=== PATIENT | male | born 1945 | race Caucasian/White ===

== ENCOUNTER 2017-11-28 18:30 | Inpatient (IN) | payer MEDICARE, OTHER ==
[~2017-11-28] VITALS: Ht 162.6 cm; Wt 64.4 kg
[2017-11-28] MEDS ORDERED: ASPI-1169 PO (18:38)
[2017-11-28] MEDS ORDERED: MAGN400O6 PO (18:38)
[2017-11-28] MEDS ORDERED: ATOR40TA PO (18:38)
[2017-11-28] MEDS ORDERED: METO25TA20 PO (18:38)
[2017-11-28] MEDS ORDERED: RISP0.253 PO (18:38)
[2017-11-28] MEDS ORDERED: SENN1TAB33 PO (18:38)
[2017-11-28] MEDS ORDERED: RAME8TAB15 PO (18:38)
--- NOTE | 2017-11-28 18:40 | NUR ---
AAOX3, BIB PA FROM [facility] FOR PSYCH EVAL. PATIENT IS BLIND. PATIENT WAS AGGRESSIVE PER EMS REPORT BUT HE HAS BEEN COOPERATIVE IN THE ER AT THE MOMENT. SKIN IS WARM AND DRY. RR IS EVEN AND UNLABORED WITH NAD NOTED. DR MATHIS AT FOR EVAL.
[2017-11-28 18:56] LABS: EOSINOPHILS # (AUTO) 0.1 /CMM (0.0-0.7)
--- NOTE | 2017-11-28 19:01 | NUR ---
REPORT GIVEN TO ARASELI MACK FOR KELLY.
--- NOTE | 2017-11-28 19:05 | NUR ---
RECEIVED REPORT FROM ARASELI DAN.
[2017-11-28 19:10] LABS: MONOCYTES % (AUTO) 7.2 % (2.0-12.0)
[2017-11-28 19:22] LABS: THYROID STIMULATING HORMONE 2.328 uIU/mL (0.358-3.74)
[2017-11-28 19:23] LABS: ALANINE AMINOTRANSFERASE 48 U/L (12-78); ALBUMIN 3.6 g/dL (3.4-5.0); ALCOHOL, BLOOD < 3 mg/dL (0-0); ALKALINE PHOSPHATASE 96 U/L (46-116); ASPARTATE AMINOTRANSFERASE 28 U/L (15-37); BILIRUBIN,DIRECT 0.1 mg/dL (0.0-0.2); BILIRUBIN,TOTAL 0.6 mg/dL (0.2-1.0); CARBON DIOXIDE 34 mmol/L (21-32); CHLORIDE 116 mmol/L (98-107); CREATININE 1.5 mg/dL (0.6-1.3); GLUCOSE 105 mg/dL (74-106); POTASSIUM 3.6 mmol/L (3.5-5.1); SODIUM SERUM 154 mmol/L (136-145); TOTAL PROTEIN, SERUM 7.6 g/dL (6.4-8.2); UREA NITROGEN, BLOOD 41 mg/dL (7-18)
[2017-11-28 19:25] LABS: BASOPHILS # (AUTO) 0.1 /CMM (0.0-0.2); BASOPHILS % (AUTO) 0.6 % (0.0-2.0); EOSINOPHILS % (AUTO) 0.8 % (0.0-6.0); HEMATOCRIT 51 % (39-51); HEMOGLOBIN 17.5 g/dL (13.5-17.5); LYMPHOCYTES # (AUTO) 1.3 /CMM (0.8-4.8); LYMPHOCYTES % (AUTO) 10.3 % (20.0-44.0); MEAN CORPUSCULAR HEMOGLOBIN 31 PG (26.0-33.0); MEAN CORPUSCULAR HGB CONC 35 g/dl (31.0-36.0); MEAN CORPUSCULAR VOLUME 89 fL (80-96); MONOCYTES # (AUTO) 0.9 /CMM (0.1-1.30); NEUTROPHILS # (AUTO) 10.7 /CMM (1.8-8.9); NEUTROPHILS % (AUTO) 81.1 % (43.0-81.0); PLATELET COUNT (AUTO) 332 /CMM (150-450); RDW COEFFICIENT OF VARIATION 12.3 (11.5-15.0); RED BLOOD CELL COUNT(AUTO) 5.74 MIL/uL (4.5-6.0); TROPONIN I < 0.017 ng/mL (0.00-0.056); WHITE BLOOD COUNT (AUTO) 13.1 K/uL (4.3-11.0)
[2017-11-28 19:27] LABS: APPEARANCE,URINE Clear (CLEAR); BILIRUBIN,URINE SMALL (NEGATIVE); BLOOD, URINE Negative Ery/uL (NEGATIVE); COLOR,URINE Yellow (YELLOW); KETONES,URINE Negative (NEGATIVE); LEUKOCYTE ESTERASE ,URINE Negative (NEGATIVE); NITRITE, URINE Negative (NEGATIVE); PH,URINE 5.5 (5.0-8.0); PROTEIN,URINE Trace mg/dl (NEGATIVE); UGLUCOSE Negative (NEGATIVE); UROBILINOGEN,URINE 0.2 EU/dL (0.2)
[2017-11-28 19:48] LABS: BACTERIA,URINE None seen /HPF (None Seen); RBC,URINE 0-2 /HPF (0-2); SQUAMOUS EPITHELIAL CELL,UR Few /HPF (None Seen); WBC,URINE 0-2 /HPF (0-3)
[2017-11-28] MEDS ORDERED: IV NS 0.9% 1,000 ML BAG IV ONE (20:00)
--- NOTE | 2017-11-28 20:45 | NUR ---
MADELINE AT BEDSIDE FOR EVAL.
--- NOTE | 2017-11-28 21:22 | NUR ---
PT PLACED ON 5150 HOLD PER MADELINE
--- NOTE | 2017-11-28 21:30 | NUR ---
REPORT GIVEN TO ARASELI MARQUEZ. IV removed. Catheter intact and site benign. Pressure and 4x4 applied to site. No bleeding noted.
--- NOTE | 2017-11-28 21:33 | NUR ---
PT [facility]ED TO [facility].
--- NOTE | 2017-11-28 21:50 | NUR ---
ADMISSION NOTES: ADMITTED THIS 72 Y/O MALE FROM [facility]. PT IS ON 5150 HOLD FOR GD. PSYCH DX OF PSYCHOSIS. MEDICAL DX OF HTN, DEMENTIA, HYPERLIPIDEMIA. PER HOLD PT IS HOMELESS AND BROUGHT IN BY THE POLICE. OVER THE LAST SEVERAL DAYS THE PT APPARENTLY BECAME VERY COMBATIVE, AGITATED AND MORE CONFUSED. PT WAS STRIKING OUT AT PEOPLE. PT UNABLE TO CARE FOR SELF. UPON FACE TO FACE. PATIENT IS A&OX1, CONFUSED, TOTALLY BLIND, AGITATED, UNCOOPERATIVE, AMBULATORY WITH ASSIST, RESPIRATION EVEN AND NON-LABORED, NO COMPLAIN OF PAIN/DISCOMFORT AT THIS TIME. V/S STABLE. BELONGINGS WERE INVENTORIED AND CHECKED FOR CONTRABAND. PUT BELONGINGS IN SAFE/LOCKED CABINET. PATIENT IS UNDER THE PSYCHIATRIC CARE OF DR. COSTA AND UNDER THE MEDICAL CARE OF DR. PEARSON. PT REFUSED SKIN/BODY ASSESSMENT. PATIENT'S BED LOCKED AND PLACED ON LOWEST POSITION. SIDERAILS UPX2. CALL CAMPBELL WITHIN REACH. WILL CONTINUE TO MONITOR Q 15 MINS. FOR SAFETY AND BEHAVIOR.
[2017-11-28 22:12] VITALS: BP 119/85
[2017-11-28] MEDS ORDERED: MAG HYDROX/AL HYDROX/SIMETH 30 ML UDC PO PRN (22:30)
[2017-11-28] MEDS ORDERED: LORAZEPAM 0.5 MG TABLET PO PRN (22:30)
[2017-11-28] MEDS ORDERED: MAGNESIUM HYDROXIDE 30 ML UDC PO PRN (22:30)
[2017-11-28] MEDS ORDERED: ZOLPIDEM TARTRATE 5 MG TABLET PO PRN (22:30)
[2017-11-28] MEDS ORDERED: ACETAMINOPHEN 325 MG TABLET PO PRN (22:30)
[2017-11-28 22:45] VITALS: BP 119/85
[2017-11-29] MEDS ORDERED: MAGNESIUM HYDROXIDE 30 ML UDC PO PRN (00:30)
[2017-11-29] MEDS ORDERED: SENNOSIDES/DOCUSATE SODIUM 1 TAB TABLET PO PRN (00:30)
[2017-11-29 06:34] LABS: BASOPHILS # (AUTO) 0.1 /CMM (0.0-0.2); BASOPHILS % (AUTO) 0.4 % (0.0-2.0); EOSINOPHILS # (AUTO) 0.1 /CMM (0.0-0.7); EOSINOPHILS % (AUTO) 0.4 % (0.0-6.0); HEMATOCRIT 49 % (39-51); HEMOGLOBIN 17.1 g/dL (13.5-17.5); LYMPHOCYTES # (AUTO) 1.4 /CMM (0.8-4.8); LYMPHOCYTES % (AUTO) 10.6 % (20.0-44.0); MEAN CORPUSCULAR HEMOGLOBIN 31 PG (26.0-33.0); MEAN CORPUSCULAR HGB CONC 35 g/dl (31.0-36.0); MEAN CORPUSCULAR VOLUME 89 fL (80-96); MONOCYTES % (AUTO) 7.4 % (2.0-12.0); NEUTROPHILS # (AUTO) 10.6 /CMM (1.8-8.9); NEUTROPHILS % (AUTO) 81.2 % (43.0-81.0); PLATELET COUNT (AUTO) 352 /CMM (150-450); RDW COEFFICIENT OF VARIATION 11.9 (11.5-15.0); RED BLOOD CELL COUNT(AUTO) 5.57 MIL/uL (4.5-6.0); WHITE BLOOD COUNT (AUTO) 13.2 K/uL (4.3-11.0)
[2017-11-29 06:51] LABS: ALBUMIN 3.5 g/dL (3.4-5.0); BILIRUBIN,TOTAL 0.6 mg/dL (0.2-1.0); CALCIUM, SERUM 9.8 mg/dL (8.5-10.1); CREATININE 1.6 mg/dL (0.6-1.3); POTASSIUM 3.5 mmol/L (3.5-5.1); TOTAL PROTEIN, SERUM 7.7 g/dL (6.4-8.2)
--- NOTE | 2017-11-29 07:15 | NUR ---
PAGED AND SPOKE TO STACY COPPOLA REGARDING SODIUM 158. SAID HE'S COMING LATER TO SEE THE PT. NO NEW ORDERS. WILL ENDORSE TO NEXT SHIFT NURSE FOR KELLY.
[2017-11-29 07:52] LABS: CHOLESTEROL 103 mg/dL (<200); HDL CHOLESTEROL 41 mg/dL (40-60); LDL 48 mg/dL (0-99); TRIGLYCERIDES 97 mg/dL (30-150)
[2017-11-29 08:25] VITALS: BP 132/58
--- NOTE | 2017-11-29 08:29 | NUR ---
[id number]: STACY PEARSON CAME TO ASSESS PT AND ENCOURAGE WATER INTAKE AND DRAW BLOOD AT NOON AND POSSIBLY TRANSFERRING PT TO MEDICAL SURGICAL FLOOR.
--- NOTE | 2017-11-29 08:35 | NUR ---
[id number]: NOTIFIED CARPET WEAVER LILI ABOUT LAB ON 11/29/17: WBC= 13.2, NEUT%= 81.2, LYMPH%= 10.6, NA= 158, CHLORIDE 117, BUN=40,, CREATININE=1.6.
[2017-11-29 08:41] VITALS: BP 132/58
[2017-11-29] MEDS ORDERED: ASPIRIN 81 MG TAB.CHEW PO SCH (09:00)
[2017-11-29] MEDS ORDERED: METOPROLOL TARTRATE 25 MG TABLET PO SCH (09:00)
[2017-11-29] MEDS ORDERED: IV D5W 1,000 ML IV PRN (10:30)
[2017-11-29 10:37] LABS: BAND % (MANUAL) 1 % (0.0-5.0); LYMPHOCYTES % (MANUAL) 10 % (16-48); MONOCYTES % (MANUAL) 6 % (0-11.0); NEUTROPHILS % (MANUAL) 83 (42-76)
[2017-11-29 12:18] LABS: CALCIUM, SERUM 9.7 mg/dL (8.5-10.1); CREATININE 1.7 mg/dL (0.6-1.3); POTASSIUM 4.4 mmol/L (3.5-5.1)
--- NOTE | 2017-11-29 15:15 | NUR ---
[id number]: PT IS DISCHARGING TO MEDICAL SURGICAL FLOOR DUE TO HYPERNATREMIA AND DEHYDRATION. PT IS A/O X1, CONFUSED, FORGETFUL. PT HAS NA= 155. DR. ULRICH ORDERED TO TRANSFER PT TO MEDICAL SURGICAL FLOOR. BELONGINGS SIGNED AND RETURNED. PT REQUIRES ASSISTANCE WITH AMBULATION, SELF-CARE, AND INCONTINENT. EDUCATED PT ON EXIT CARE. NOTIFIED DR. COSTA. GAVE REPORT TO VIKKI MARX
[2017-11-29] MEDS ORDERED: risperiDONE 0.25 MG TABLET PO SCH (17:00)
[2017-11-29] MEDS ORDERED: ACET-868 PO (17:16)
[2017-11-29] MEDS ORDERED: MAG30ORA PO (17:16)
[2017-11-29] MEDS ORDERED: RISP0.253 PO (17:16)
[2017-11-29] MEDS ORDERED: LORA1TAB PO (17:16)
[2017-11-29] MEDS ORDERED: ZOLP5TAB8 PO (17:16)
[2017-11-29] MEDS ORDERED: [UNRECOGNIZED DRUG - CODE] IV (17:16)
[2017-11-29] MEDS ORDERED: ATORVASTATIN 40 MG TABLET PO SCH (22:00)
== END 2017-11-29 15:21 | disposition short-term general hospital (02) | DRG 885 ==
LOC: ER 18:37 → GPS 21:17
PROVIDERS: ADMIT Psychiatry & Neurology Psychiatry; ATTEND Psychiatry & Neurology Psychiatry
DX: F29 Unspecified psychosis not due to a substance or known physiological condition (principal); N17.0 Acute kidney failure with tubular necrosis; E87.0 Hyperosmolality and hypernatremia; F03.91 Unspecified dementia, unspecified severity, with behavioral disturbance; E78.5 Hyperlipidemia, unspecified; Z86.73 Personal history of transient ischemic attack (TIA), and cerebral infarction without residual deficits; Z79.82 Long term (current) use of aspirin; Z79.899 Other long term (current) drug therapy; I10 Essential (primary) hypertension; E86.0 Dehydration; D72.829 Elevated white blood cell count, unspecified
CPT/HCPCS: 36415; 71045-TC; 80048-TC; 80053-TC; 80061-TC; 80076-TC; 80305; 81000-TC; 84443-TC; 84484-TC; 85025-TC; 87081-TC; A4606; G0480; J7070; Z7610

== ENCOUNTER 2017-11-29 16:50 | Inpatient (IN) | payer MEDICARE, OTHER ==
[~2017-11-29] VITALS: Ht 172.7 cm; Wt 64.9 kg
[2017-11-29 16:48] VITALS: BP 136/85
[~2017-11-29 16:50] MED LIST: ASPI-1169 PO; ATOR40TA PO; MAGN400O6 PO; METO25TA20 PO; RAME8TAB15 PO; RISP0.253 PO; SENN1TAB33 PO
--- NOTE | 2017-11-29 17:00 | NUR ---
ADMISSION NOTES PATIENT AD[facility]ITT[facility] FROM [facility] MALE 72Y/OLD ON Dx. OF DEHYDRATION, HYPERNATREMIA, ALSO PATIENT ON 5150 HOLD. PATIENT A/O X1, CONFUSED, IRRITABLE, BLIND , V/S TAKEN BP-136/85, P-100,R-20, O2-99 ROOM AIR, T-97.8, SKIN ASSESSMENT DONE, PICTURE TAKEN, NEEDS ATTENDED ANTICIPATED. MRSA OF SWAB NARES TAKEN CALLED LAB FOR FAST FOOD SUPERVISOR. 1:1 SITTER NEXT TO THE BED FOR SAFETY. PUT IV ACCESS ON RIGHT FOREARM GAUGE 22 INTACT.PATIENT INCONTINENT USING DIAPER. CALLED DR ULRICH FOR MEDICATION RECONCILIATION, CALL LIGHT WITHIN TO REACH, SAFETY PRECAUTION MAINTAINED ALL THE TIME.
[2017-11-29] MEDS ORDERED: MAG30ORA PO (17:16)
[2017-11-29] MEDS ORDERED: RISP0.253 PO (17:16)
[2017-11-29] MEDS ORDERED: [UNRECOGNIZED DRUG - CODE] IV (17:16)
[2017-11-29] MEDS ORDERED: ACET-868 PO (17:16)
[2017-11-29] MEDS ORDERED: LORA1TAB PO (17:16)
[2017-11-29] MEDS ORDERED: ZOLP5TAB8 PO (17:16)
--- NOTE | 2017-11-29 18:00 | NUR ---
RN NOTES PATIENT IN THE BED EATING ASSIST FEEDING BT EDITOR PUBLICATIONS. NO ACUTE DISTRESS, NO RESPIRATORY DISTRESS. 1:1 SITTER NEXT TO THE BED FOR SAFETY. ENDORSED ONCOMING NURSE FOR CONTINUATION OF CARE.
--- NOTE | 2017-11-29 19:30 | NUR ---
RN NOTES RECEIVED PATIENT IN BED AWAKE, AO X 1, VERBALLY RESPONSIVE. NO ACUTE DISTRESS NOTED. NO SIGNS OF PAIN NOTED. IV SITE PATENT, INTACT; FLUSHED. SAFETY REMINDERS GIVEN. ON LOW BED WITH BILATERAL UPPER SIDE RAILS UP. CALL CAMPBELL WITHIN EASY REACH. WILL CONTINUE TO MONITOR.
[2017-11-29 20:00] VITALS: BP 121/50
--- NOTE | 2017-11-29 22:17 | NUR ---
RN NOTES PATIENT VERY RESTLESS, AGITATED; TRYING TO GET OUT OF BED; VERY HIGH RISK FOR FALL; POOR SAFETY AWARENESS. NONPHARMACOLOGICAL INTERVENTIONS TO CALM PATIENT DOWN INEFFECTIVE. HECTOR PEARSON SOLIDWORKS MECHANICAL DESIGNER MADE AWARE WITH NEW ORDER FOR SEROQUEL 25 MG PO X 1, NOTED AND CARRIED OUT.
[2017-11-29] MEDS ORDERED: QUETIAPINE FUMARATE 25 MG TABLET ONE (22:24)
[2017-11-29] MEDS ORDERED: ATORVASTATIN 40 MG TABLET ONE (22:30)
[2017-11-29] MEDS ORDERED: QUETIAPINE FUMARATE 25 MG TABLET PO SCH (22:30)
[2017-11-29] MEDS ORDERED: QUETIAPINE FUMARATE 25 MG TABLET PO ONE (22:30)
[2017-11-29] MEDS: ATORVASTATIN 40 MG TABLET PO SCH (22:39)
[2017-11-29] MEDS: IV D5W 1,000 ML IV PRN (23:04)
--- NOTE | 2017-11-30 06:27 | NUR ---
RN NOTES PATIENT ASLEEP, EASILY AROUSABLE. RESPIRATIONS EVEN. NO SIGNS OF PAIN NOTED. DUE MEDS GIVEN WITH NO ASE NOTED. NEEDS ATTENDED. KEPT CLEAN AND DRY. SAFETY PRECAUTIONS AND COMFORT MEASURES IN PLACE. WILL GIVE REPORT TO DAY SHIFT FOR CONTINUITY OF CARE.
--- NOTE | 2017-11-30 07:40 | NUR ---
MS RN OPENING NOTES RECEIVED PATIENT IN STABLE CONDITION. IN NO APPARENT DISTRESS. BEDSIDE RAILS ARE UP X2 . BED IS LOCKED AND LOWERED. CALL LIGHT WITHIN REACH. WILL CONTINUE TO MONITOR.
[2017-11-30 08:00] VITALS: BP 136/87
[2017-11-30] MEDS: ASPIRIN 81 MG TAB.CHEW PO SCH (08:42)
[2017-11-30] MEDS: METOPROLOL TARTRATE 25 MG TABLET PO SCH ×2 (08:42→17:07)
[2017-11-30] MEDS: risperiDONE 0.25 MG TABLET PO SCH ×2 (08:42→17:07)
[2017-11-30] MEDS: IV D5W 1,000 ML IV PRN (14:06)
[2017-11-30] MEDS: LORAZEPAM INJ 2 MG/ML VIAL IV PRN ×2 (14:11→22:51)
[2017-11-30 16:00] VITALS: BP 133/66
--- NOTE | 2017-11-30 18:35 | NUR ---
MS RN CLOSING NOTES PATIENT IS ALERT AND RESTING IN BED. IN NO APPARENT DISTRESS. BEDSIDE RAILS ARE UP X2 . BED IS LOCKED AND LOWERED. CALL LIGHT IS WITHIN REACH. ALL NEEDS WERE MET. WILL ENDORSE CARE TO DRIVER'S LICENSE EXAMINER NURSE FOR KELLY.
--- NOTE | 2017-11-30 19:35 | NUR ---
MS RN OPENING NOTES RECEIVED PATIENT RESTING IN BED, A & O X 1, CONFUSED/FORGETFUL DUET O DEMENTIA. RESP EVEN & NON LABORED. NO S/S OF PAIN NOTED. INCONTINENT OF B & BM. ON BED REST. IV ACCESS TO RFA, INTACT PATENT, RUNNING WITH D5W @ 75 ML/HR. ON 5150 HOLD PER MD ORDERS. HAS HX OF EPISODES OF ANXIOUSNESS/RESTLESSNESS. ON 1:1 SITTER FOR SAFETY. SAFETY MEASURES IN PLACE. BED ALARM ON & IN LOW LOCKED POSITION. CALL LIGHT WITHIN REACH. WILL CONTINUE TO MONITOR.
[2017-11-30 20:00] VITALS: BP 123/61
[2017-11-30] MEDS: ATORVASTATIN 40 MG TABLET PO SCH (21:25)
--- NOTE | 2017-11-30 22:45 | NUR ---
PT PULLED HIS IV CATH PATIENT NOTED TO BE ANXIOUS, PULLED HIS IV LINE, REINSERTED NEW IV LINE TO LEFT HAND WITH GOOD BLOOD FLOW. NO S/S OF INFILTRATION NOTED. PROCEDURE TOLERATED WELL. ON 1:1 SITTER FOR SAFETY.
--- NOTE | 2017-11-30 22:51 | NUR ---
PRN ATIVAN GIVEN PATIENT NOTED TO BE VERY ANXIOUS, PULLED IV LINE, TRYING TO GET OUT OF BED, PRN ATIVAN GIVEN ORDERED. ON 1:1 SITTER FOR SAFETY. SAFETY MEASURES IN P-LACE. WILL REASSESS.
--- NOTE | 2017-11-30 22:55 | NUR ---
MS RN NOTES PATIENT NOTED TO BE RESTLESS/ANXIOUS. PRN ATIVAN GIVEN A WHILE AGO. PATIENT IS KEEP TRYING TO PULL OUT THE NEW IV CATH WELL. DISCONNECTED THE IVF LINE @ THIS TIME, WILL RECONNECT WHEN PT IS RELAXED FOR SAFETY REASONS. ON 1:1 SITTER.
--- NOTE | 2017-12-01 02:10 | NUR ---
MS RN NOTES PATIENT NOTED TO BE SLEEPING @ THIS TIME, CONNECTED BACK TO IVF. CONTINUING TO MONITOR.
[2017-12-01] MEDS: IV D5W 1,000 ML IV PRN ×2 (05:57→20:09)
--- NOTE | 2017-12-01 06:31 | NUR ---
MS RN CLOSING NOTES PATIENT SLEPT INTERMITTENTLY @ NIGHT, A & O X 1, CONFUSED/FORGETFUL DUE TO DEMENTIA. RESP EVEN & NON LABORED. NO S/S OF PAIN NOTED. RESISTANT TO CARE @ TIMES. INCONTINENT OF B & BM. ON BED REST. IV ACCESS TO LEFT HAND, INTACT PATENT, RUNNING WITH D5W @ 75 ML/HR. ON 5150 HOLD PER MD ORDERS. HAS HX OF EPISODES OF ANXIOUSNESS/RESTLESSNESS. ON 1:1 SITTER FOR SAFETY. SAFETY MEASURES IN PLACE. BED ALARM ON & IN LOW LOCKED POSITION. CALL LIGHT WITHIN REACH. WILL ENDORSE TO AM RN FOR CONTINUITY OF CARE.
[2017-12-01 07:17] LABS: BASOPHILS % (AUTO) 0.3 % (0.0-2.0); EOSINOPHILS # (AUTO) 0.2 /CMM (0.0-0.7); EOSINOPHILS % (AUTO) 1.9 % (0.0-6.0); HEMATOCRIT 40 % (39-51); HEMOGLOBIN 13.7 g/dL (13.5-17.5); LYMPHOCYTES # (AUTO) 1.4 /CMM (0.8-4.8); LYMPHOCYTES % (AUTO) 15.2 % (20.0-44.0); MEAN CORPUSCULAR HEMOGLOBIN 30 PG (26.0-33.0); MEAN CORPUSCULAR HGB CONC 34 g/dl (31.0-36.0); MEAN CORPUSCULAR VOLUME 89 fL (80-96); MONOCYTES # (AUTO) 0.6 /CMM (0.1-1.30); NEUTROPHILS # (AUTO) 6.9 /CMM (1.8-8.9); NEUTROPHILS % (AUTO) 75.6 % (43.0-81.0); PLATELET COUNT (AUTO) 253 /CMM (150-450); RDW COEFFICIENT OF VARIATION 12.7 (11.5-15.0); RED BLOOD CELL COUNT(AUTO) 4.52 MIL/uL (4.5-6.0); WHITE BLOOD COUNT (AUTO) 9.1 K/uL (4.3-11.0)
[2017-12-01 07:41] LABS: CALCIUM, SERUM 8.5 mg/dL (8.5-10.1); POTASSIUM 3.2 mmol/L (3.5-5.1)
[2017-12-01 07:59] LABS: OSMOLALITY,SERUM 309 mOS/kg (278-305)
[2017-12-01 08:00] VITALS: BP 138/69
--- NOTE | 2017-12-01 08:00 | NUR ---
m/s gem stone cutter: initial assessment received pt in bed awake, alert to self only. confused and disoriented. reality orientation provided prn. sitter remains at bedside. kept comfortable. will continue to monitor.
[2017-12-01 08:15] LABS: URINE SODIUM, RANDOM 71 mmol/l (40-220)
[2017-12-01] MEDS: risperiDONE 0.25 MG TABLET PO SCH ×2 (09:30→17:07)
[2017-12-01] MEDS: ASPIRIN 81 MG TAB.CHEW PO SCH (09:30)
[2017-12-01] MEDS: FAMOTIDINE (20 MG) 20 MG TABLET PO SCH (09:30)
[2017-12-01] MEDS: METOPROLOL TARTRATE 25 MG TABLET PO SCH ×2 (09:31→17:07)
--- NOTE | 2017-12-01 10:59 | NUR ---
juanito/claudia optometric aide: pscyh f/u placed pt on a [address] swain at this time. copy provided. Addendum: 12/01/17 at [address] swain in room with pt at this time.
[2017-12-01] MEDS: LORAZEPAM INJ 2 MG/ML VIAL IV PRN ×2 (11:39→23:08)
[2017-12-01] MEDS: POTASSIUM CHLORIDE 20 MEQ TAB.PRT.SR PO SCH ×2 (11:44→12:51)
--- NOTE | 2017-12-01 14:00 | NUR ---
m/s stone sawyer: notes resting comfortable in bed with no distress noted. sitter remains at bedside. will continue to monitor.
[2017-12-01 16:00] VITALS: BP 137/73
[2017-12-01 16:30] VITALS: BP 137/73
[2017-12-01 17:01] VITALS: BP 138/69
--- NOTE | 2017-12-01 18:30 | NUR ---
m/s spice blender: notes in bed awake, remains confused and disoriented. reality orientation provided prn. sitter remains at bedside. continue on ivf, infusing well. no distress noted. will continue to monitor.
--- NOTE | 2017-12-01 20:00 | NUR ---
MS RN OPENING NOTES: RECEIVED PATIENT IN BED, AWAKE, MOVING IN BED WITH 1:1 SITTER IN CLOSE PROXIMITY FOR SAFETY. PATIENT HAS AN IVF ON THE LEFT ARM ON GOING. NO SIGNS OF REDNESS, PHLEBITIS, OR INFECTION. PATIENT APPEARS CONFUSED AND DISORGANIZED. REALITY ORIENTATION DONE. WILL ADMINISTER ORDERED MEDICATIONS. SAFETY AND FALL PRECAUTIONS OBSERVED.
[2017-12-01] MEDS: ATORVASTATIN 40 MG TABLET PO SCH (22:36)
--- NOTE | 2017-12-02 00:40 | NUR ---
MS RN CLOSING NOTES: PATIENT IN BED, ASLEEP, WITH 1:1 SITTER. ENDORSED TO ARASELI PEREZ. FOR CONTINUITY OF CARE.
--- NOTE | 2017-12-02 01:00 | NUR ---
RN NOTES RECEIVED REPORT FROM ARASELI FIGUEROA. PATIENT IS IN BED, AWAKE, MOVING IN BED. SITTER PRESENT AT BEDSIDE. NO SOB NOTED. RESPIRATIONS EVEN AND UNLABORED. IV ACCESS ON LEFT HAND PATENT AND INTACT, NO REDNESS OR INFILTRATION NOTED. PATIENT IS DISORIENTED AND CONFUSED. BED IN LOW AND LOCKED POSITION, SIDE RAILSX3. CALL LIGHT WITHIN EASY REACH. WILL CONTINUE TO MONITOR AND ASSESS DURING THE SHIFT.
--- NOTE | 2017-12-02 07:45 | NUR ---
RN NOTES PATIENT IS IN BED, AWAKE, MOVING IN BED. SITTER PRESENT AT BEDSIDE. NO SOB NOTED. RESPIRATIONS EVEN AND UNLABORED. IV ACCESS ON LEFT HAND PATENT AND INTACT, INFUSING D5W AT 75 ML/HR. NO REDNESS OR INFILTRATION NOTED. ALL NEEDS ARE MET AND MEDICATIONS GIVEN PER MD ORDER. BED IN LOW AND LOCKED POSITION, SIDE RAILSX3. CALL LIGHT WITHIN EASY REACH. WILL ENDORSE TO RN DAY SHIFT FOR KELLY.
[2017-12-02 08:00] VITALS: BP 120/76
--- NOTE | 2017-12-02 08:00 | NUR ---
MED SURG 3 RN AM NOTES RECEIVED PATIENT AWAKE IN BED. ALERT AND ORIENTED X 1. VITALS STABLE, RESPIRATIONS UNLABORED ON ROOM AIR. 22G IV LEFT HAND WITH D5W INFUSING WELL AT 75 ML/HR, NO COMPLICATIONS NOTED. NO SIGNS OR SYMPTOMS OF PAIN OR DISTRESS. BED IN LOW POSITION, WITH SIDE RAILS UP X 2, AND SITTER AT BEDSIDE. CALL LIGHT WITHIN REACH.
[2017-12-02 08:47] VITALS: BP 120/76
[2017-12-02] MEDS: ASPIRIN 81 MG TAB.CHEW PO SCH (08:47)
[2017-12-02] MEDS: METOPROLOL TARTRATE 25 MG TABLET PO SCH (08:47)
[2017-12-02] MEDS: risperiDONE 0.25 MG TABLET PO SCH (08:48)
[2017-12-02] MEDS: FAMOTIDINE (20 MG) 20 MG TABLET PO SCH (08:48)
--- NOTE | 2017-12-02 15:30 | NUR ---
DISCHARGE PATIENT DISCHARGED TO [facility]IA [facility]AIR WITH BELONGINGS. VITALS STABLE, BREATHING UNLABORED ON ROOM AIR. NO COMPLAINTS OF PAIN OR SYMPTOMS OF DISTRESS NOTED. IV HEP LOCK REMOVED. SPOKE TO SHAHEEN AND GAVE REPORT ON PATIENT.
== END 2017-12-02 15:00 | DRG 684 ==
LOC: MED 16:50
PROVIDERS: ADMIT Nurse Practitioner Acute Care; ATTEND Nurse Practitioner Acute Care
DX: N17.0 Acute kidney failure with tubular necrosis (principal); F03.90 Unspecified dementia, unspecified severity, without behavioral disturbance, psychotic disturbance, mood disturbance, and anxiety; E86.0 Dehydration; E78.5 Hyperlipidemia, unspecified; F29 Unspecified psychosis not due to a substance or known physiological condition; I10 Essential (primary) hypertension; D72.829 Elevated white blood cell count, unspecified; Z73.6 Limitation of activities due to disability; E86.1 Hypovolemia; M19.90 Unspecified osteoarthritis, unspecified site
CPT/HCPCS: 36415; 80048-TC; 83935-TC; 84300-TC; 85025-TC; 87081-TC; J2060; J7070; Z7610

== ENCOUNTER 2017-12-02 16:16 | Inpatient (IN) | payer MEDICARE, OTHER ==
[~2017-12-02] VITALS: Ht 170.2 cm; Wt 65.8 kg
[~2017-12-02 16:16] MED LIST changes: +ACET-868 PO; +LORA1TAB PO; +MAG30ORA PO; -RAME8TAB15 PO; +ZOLP5TAB8 PO; +[UNRECOGNIZED DRUG - CODE] IV
[2017-12-02] MEDS ORDERED: SENNOSIDES/DOCUSATE SODIUM 1 TAB TABLET PO PRN (16:30)
[2017-12-02] MEDS ORDERED: MAGNESIUM HYDROXIDE 30 ML UDC PO PRN ×2 (16:30→19:00)
[2017-12-02] MEDS ORDERED: ACETAMINOPHEN 325 MG TABLET PO PRN ×2 (16:30→19:00)
--- NOTE | 2017-12-02 17:00 | NUR ---
DYE BLENDER NOTE:PATIENT ADMITTED ON 5250 HOLD FOR GD PER HOLD PATIENT CONFUSED AND NO PLANS FOR SELF CARE .PATIENT ALERT ,ON 1:1 ASSESSMENT PATIENT CONFUSED ,UNABLE O ANSWER ALL QUESTIONS ,EASILY AGITATED AND NOT FOLLOWING DIRECTIONS AND NOTIFIED WITH ADMIT ORDERS ,ALL BELONGINGS CHECKED ,PATIENT'S RIGHT HAND BOOK GIVEN AND EXPLAINED TO PATIENT .PLACE PATIENT ON Q15 MINUTES SAFETY CHECK .
[2017-12-02] MEDS ORDERED: Z GUARD REMEDY 2 OZ OINT TP PRN (18:30)
[2017-12-02] MEDS ORDERED: MAG HYDROX/AL HYDROX/SIMETH 30 ML UDC PO PRN (19:00)
[2017-12-02] MEDS: METOPROLOL TARTRATE 25 MG TABLET PO SCH (19:29)
[2017-12-02 20:20] VITALS: BP 108/66
[2017-12-02] MEDS: ATORVASTATIN 40 MG TABLET PO SCH (21:27)
[2017-12-02] MEDS: ZOLPIDEM TARTRATE 10 MG TABLET PO PRN (21:28)
[2017-12-03 08:00] VITALS: BP 115/76
[2017-12-03] MEDS: ASPIRIN 81 MG TAB.CHEW PO SCH (09:01)
[2017-12-03] MEDS: METOPROLOL TARTRATE 25 MG TABLET PO SCH ×2 (09:01→16:21)
[2017-12-03] MEDS: risperiDONE 1 MG TABLET PO SCH ×5 (09:01→20:56)
[2017-12-03] MEDS: LORAZEPAM 0.5 MG TABLET PO PRN (14:03)
--- NOTE | 2017-12-03 14:04 | NUR ---
RN NOTE: PATIENT IS VERY ANXIOUS AND RESTLESS. PATIENT GIVEN 1MG OF LORAZEPAM.
[2017-12-03 15:47] VITALS: BP 139/99
--- NOTE | 2017-12-03 15:59 | NUR ---
SW attempted to conduct an assessment with patient. However, patient was unable to participate in assessment due to severe confusion. SW attempted twice to call patient's son, Chun Laird at [phone]. However, AVA was met with the following message: "the person you have dialed is not accepting calls at this time" There is no voicemail option.
[2017-12-03 17:47] LABS: ALBUMIN 3.3 g/dL (3.4-5.0); BILIRUBIN,TOTAL 0.5 mg/dL (0.2-1.0); CALCIUM, SERUM 8.9 mg/dL (8.5-10.1); CREATININE 1.2 mg/dL (0.6-1.3); POTASSIUM 3.6 mmol/L (3.5-5.1); TOTAL PROTEIN, SERUM 7.1 g/dL (6.4-8.2)
[2017-12-03 18:47] LABS: CHOLESTEROL 94 mg/dL (<200); HDL CHOLESTEROL 41 mg/dL (40-60); LDL 41 mg/dL (0-99); TRIGLYCERIDES 97 mg/dL (30-150)
[2017-12-03 20:00] VITALS: BP 116/59
[2017-12-03] MEDS: ATORVASTATIN 40 MG TABLET PO SCH (20:53)
[2017-12-03] MEDS: ZOLPIDEM TARTRATE 10 MG TABLET PO PRN (20:54)
[2017-12-03] MEDS: risperiDONE-M 0.5 MG TAB.RAPDIS PO SCH (20:56)
[2017-12-04 08:00] VITALS: BP 110/69
--- NOTE | 2017-12-04 08:08 | NUR ---
WOUND CARE CONSULT WOUND CARE RECEIVED CONSULT. WOUND CARE WILL DEFER CONSULT AND TREATMENT PLANS TO SURGICAL TEAM WHO ARE FOLLOWING. PATIENT WITH CURRENT SERJIO AT 16. ALL PRESSURE ULCER PREVENTION MEASURES NOTED TO BE IN PLACE.
[2017-12-04] MEDS: risperiDONE 1 MG TABLET PO SCH (08:26)
[2017-12-04] MEDS: ASPIRIN 81 MG TAB.CHEW PO SCH (08:26)
[2017-12-04] MEDS: METOPROLOL TARTRATE 25 MG TABLET PO SCH ×2 (08:27→17:37)
[2017-12-04] MEDS: LORAZEPAM 0.5 MG TABLET PO PRN (11:56)
--- NOTE | 2017-12-04 13:38 | NUR ---
AVA was able to leave a voicemail for patient's son, Chun Laird at [phone]. AVA provided Chun with her direct contact information on the voicemail.
--- NOTE | 2017-12-04 15:04 | NUR ---
Initial Discharge Note: SW was able to connect with patient's son Chun Laird [phone]. Chun was able to provide background and collateral information on patient. Patient is unable to answer questioned posed by SW. Patient is disoriented. Chun stated that his father was in a retirement home before. Chun stated that he is not sure where it was because he and his father were not in contact for some time. However, Chun stated that a SNF is necessary for his father. SW to follow up and arrange safe and proper discharge.
[2017-12-04 16:00] VITALS: BP 108/73
[2017-12-04 17:36] VITALS: BP 136/69
[2017-12-04 20:00] VITALS: BP 119/80
[2017-12-04] MEDS: risperiDONE-M 0.5 MG TAB.RAPDIS PO SCH (21:36)
[2017-12-04] MEDS: ZOLPIDEM TARTRATE 10 MG TABLET PO PRN (21:36)
[2017-12-04] MEDS: ATORVASTATIN 40 MG TABLET PO SCH (21:36)
[2017-12-05 08:00] VITALS: BP 110/68
[2017-12-05] MEDS: risperiDONE 1 MG TABLET PO SCH ×2 (09:57→17:00)
[2017-12-05] MEDS: ASPIRIN 81 MG TAB.CHEW PO SCH (09:58)
[2017-12-05] MEDS: METOPROLOL TARTRATE 25 MG TABLET PO SCH ×2 (09:58→16:58)
[2017-12-05 16:00] VITALS: BP 107/57
[2017-12-05 20:00] VITALS: BP 138/76
[2017-12-05] MEDS: risperiDONE-M 0.5 MG TAB.RAPDIS PO SCH (21:47)
[2017-12-05] MEDS: ATORVASTATIN 40 MG TABLET PO SCH (21:47)
[2017-12-05] MEDS: ZOLPIDEM TARTRATE 10 MG TABLET PO PRN (21:48)
[2017-12-06 07:20] LABS: BASOPHILS % (AUTO) 0.3 % (0.0-2.0); EOSINOPHILS # (AUTO) 0.1 /CMM (0.0-0.7); EOSINOPHILS % (AUTO) 1.1 % (0.0-6.0); HEMATOCRIT 42 % (39-51); HEMOGLOBIN 14.2 g/dL (13.5-17.5); LYMPHOCYTES # (AUTO) 1.4 /CMM (0.8-4.8); LYMPHOCYTES % (AUTO) 14.2 % (20.0-44.0); MEAN CORPUSCULAR HEMOGLOBIN 30 PG (26.0-33.0); MEAN CORPUSCULAR HGB CONC 34 g/dl (31.0-36.0); MEAN CORPUSCULAR VOLUME 88 fL (80-96); MONOCYTES # (AUTO) 0.7 /CMM (0.1-1.30); MONOCYTES % (AUTO) 7.1 % (2.0-12.0); NEUTROPHILS # (AUTO) 7.5 /CMM (1.8-8.9); NEUTROPHILS % (AUTO) 77.3 % (43.0-81.0); PLATELET COUNT (AUTO) 252 /CMM (150-450); RDW COEFFICIENT OF VARIATION 13.5 (11.5-15.0); RED BLOOD CELL COUNT(AUTO) 4.74 MIL/uL (4.5-6.0); WHITE BLOOD COUNT (AUTO) 9.7 K/uL (4.3-11.0)
[2017-12-06 07:32] LABS: CALCIUM, SERUM 9.1 mg/dL (8.5-10.1); CREATININE 1.1 mg/dL (0.6-1.3); POTASSIUM 3.2 mmol/L (3.5-5.1)
[2017-12-06 08:00] VITALS: BP 120/70
[2017-12-06] MEDS: risperiDONE 1 MG TABLET PO SCH ×2 (09:07→16:11)
[2017-12-06] MEDS: ASPIRIN 81 MG TAB.CHEW PO SCH (09:07)
[2017-12-06] MEDS: METOPROLOL TARTRATE 25 MG TABLET PO SCH ×2 (09:08→16:11)
[2017-12-06] MEDS: POTASSIUM CHLORIDE 20 MEQ TAB.PRT.SR PO SCH ×2 (10:28→11:44)
[2017-12-06 16:13] VITALS: BP 110/64
[2017-12-06 19:56] VITALS: BP 111/75
[2017-12-06] MEDS: risperiDONE-M 0.5 MG TAB.RAPDIS PO SCH (21:25)
[2017-12-06] MEDS: ATORVASTATIN 40 MG TABLET PO SCH (21:25)
[2017-12-06] MEDS: ZOLPIDEM TARTRATE 10 MG TABLET PO PRN (22:20)
[2017-12-07 08:00] VITALS: BP 120/73
[2017-12-07] MEDS: METOPROLOL TARTRATE 25 MG TABLET PO SCH ×2 (08:13→16:29)
[2017-12-07] MEDS: risperiDONE 1 MG TABLET PO SCH ×2 (08:13→16:26)
[2017-12-07] MEDS: ASPIRIN 81 MG TAB.CHEW PO SCH (08:15)
--- NOTE | 2017-12-07 09:18 | NUR ---
Discharge Planning: AVA faxed an inquiry to [facility], [address] [place] [address] / fax number [phone]
--- NOTE | 2017-12-07 15:18 | NUR ---
[id number]: DAUGHTER NAMED DANIEL ASHLEY -CELL PHONE AND BUSINESS CELL PHONE NUMBER CALLED GIVING THEA PT'S SISTER PHONE NUMBER IS . DAUGHTER DANIEL SAID PT IS DNR, STAFF INFORMED DANIEL THAT WE NEED THE CODE STATUS OF DNR AND SHE SAID TO CALL [facility] CLOTH TESTER QUALITY NAMED BRAD AT . Addendum: 12/07/17 at 1545 by MENG GOMEZ RN [facility] CLOTH TESTER QUALITY WILL FOLLOW UP WITH GETTING THE DNR/DNI COPY
--- NOTE | 2017-12-07 15:27 | NUR ---
AVA was informed by RN Sunni that patient's daughter, Janett Jon [phone] called and stated that patient had DNR paperwork drawn up at [facility] in [place]. AVA called the number provided for SW Pio at [facility], . The voicemail box was full and AVA was unable to leave a message. AVA then called patient's sister, Evita [phone]. Evita stated that she did not have the paperwork. Evita stated that they want patient to be safe and that they do not have a preference over facilities.
[2017-12-07 16:00] VITALS: BP 154/74
[2017-12-07] MEDS: LORAZEPAM 0.5 MG TABLET PO PRN (20:07)
[2017-12-07 20:17] VITALS: BP 114/78
[2017-12-07] MEDS: ATORVASTATIN 40 MG TABLET PO SCH (21:36)
[2017-12-07] MEDS: risperiDONE-M 0.5 MG TAB.RAPDIS PO SCH (21:36)
[2017-12-07] MEDS: ZOLPIDEM TARTRATE 10 MG TABLET PO PRN (22:00)
[2017-12-08] MEDS: LORAZEPAM 0.5 MG TABLET PO PRN (05:05)
--- NOTE | 2017-12-08 07:43 | NUR ---
WOUND CARE CONSULT WOUND CARE RECEIVED CONSULT FOR BILATERAL FOOT DRYNESS. WOUND CARE WILL DEFER TO SURGICAL TEAM WHO ARE FOLLOWING AT THIS TIME.
[2017-12-08 08:00] VITALS: BP 140/99
[2017-12-08] MEDS: ASPIRIN 81 MG TAB.CHEW PO SCH (08:11)
[2017-12-08] MEDS: risperiDONE 1 MG TABLET PO SCH ×2 (08:12→16:38)
[2017-12-08] MEDS: METOPROLOL TARTRATE 25 MG TABLET PO SCH ×2 (08:12→16:39)
--- NOTE | 2017-12-08 11:12 | NUR ---
Discharge Planning: SW was notified by CJ from [facility], [address] [place] [address] / fax number [phone] that patient was accepted to facility.
[2017-12-08 16:00] VITALS: BP 123/53
[2017-12-08 20:12] VITALS: BP 146/77
[2017-12-08] MEDS: risperiDONE-M 0.5 MG TAB.RAPDIS PO SCH (21:06)
[2017-12-08] MEDS: ATORVASTATIN 40 MG TABLET PO SCH (21:06)
[2017-12-08] MEDS: ZOLPIDEM TARTRATE 10 MG TABLET PO PRN (21:31)
[2017-12-09] MEDS: risperiDONE 1 MG TABLET PO SCH ×2 (08:27→17:23)
[2017-12-09] MEDS: METOPROLOL TARTRATE 25 MG TABLET PO SCH ×2 (08:27→17:23)
[2017-12-09] MEDS: ASPIRIN 81 MG TAB.CHEW PO SCH (08:27)
[2017-12-09] MEDS ORDERED: VITAMINS A AND D 56.7 GM TUBE TP PRN (10:00)
[2017-12-09 11:15] VITALS: BP 88/52
--- NOTE | 2017-12-09 11:48 | NUR ---
Discharge Planning: SW made an attempt to contact patient's sister, Evita [phone] to update her on discharge plan, but no voicemail option was available and Evita did not answer the phone. SW then called patient's son, Chun Laird [phone] and updated him on his father's condition and the discharge plan [to [facility]].
--- NOTE | 2017-12-09 12:33 | NUR ---
Discharge Planning: AVA faxed progress notes to CJ from [facility], [address] [place] [address] / fax number [phone] and informed him that patient was set for discharge tomorrow.
[2017-12-09 16:00] VITALS: BP 114/58
[2017-12-09 21:08] VITALS: BP 112/54
[2017-12-09] MEDS: risperiDONE-M 0.5 MG TAB.RAPDIS PO SCH (21:10)
[2017-12-09] MEDS: ATORVASTATIN 40 MG TABLET PO SCH (21:11)
[2017-12-09] MEDS: ZOLPIDEM TARTRATE 10 MG TABLET PO PRN (21:50)
[2017-12-09] MEDS: LORAZEPAM 0.5 MG TABLET PO PRN (22:26)
[2017-12-10 08:41] VITALS: BP 121/54
[2017-12-10] MEDS: risperiDONE 1 MG TABLET PO SCH (08:48)
[2017-12-10] MEDS: ASPIRIN 81 MG TAB.CHEW PO SCH (08:48)
[2017-12-10 08:49] VITALS: BP 124/54
[2017-12-10] MEDS: METOPROLOL TARTRATE 25 MG TABLET PO SCH (08:49)
--- NOTE | 2017-12-10 09:19 | NUR ---
Discharge Note: Patient to discharge to [facility], [address] [place] [address] / fax number [phone] via ambulance transportation set up by social media marketing analyst via [employer] [phone], trip #[id number]. Patients shabana Laird [phone] is aware and in agreement with discharge. SW notified CJ, information technology coordinator at [facility], as well. Patient will be under the care of email campaign manager, Dr. Head [address] [facility] [address], [place] [address] [phone]. Patient will also be seen by psychiatrist Dr. Pisano [address], [place] [phone] at the facility.
--- NOTE | 2017-12-10 14:28 | NUR ---
GPS CREEL OPERATOR NOTE: PT DISCHARGE TO SNF [facility], [address] [place] [address] / VIA MED RESPONSE IN STABLE CONDITION NO S/S DISTRESS NOTED PT COOPERATIVE, CONFUSED , COMPLIANT WITH MEDICATIONS. EXIT CARE DONE , PRINTED PT UNABLE TO SIGN DUE TO ALTERED THOUGHTS PT REFUSED SKIN ASSESSMENT. DR COSTA ORDER DC HOLD DR ULRICH NOTIFIED WITH MED RECON DONE. REPORT GIVEN TO DEENA MARX IN THE SNF, ALL BELONGINGS RETURNED TO PT.
== END 2017-12-10 14:25 | DRG 885 ==
LOC: GPS 16:16
PROVIDERS: ADMIT Psychiatry & Neurology Psychiatry; ATTEND Psychiatry & Neurology Psychiatry
DX: F29 Unspecified psychosis not due to a substance or known physiological condition (principal); N17.9 Acute kidney failure, unspecified; E87.0 Hyperosmolality and hypernatremia; E44.1 Mild protein-calorie malnutrition; F03.91 Unspecified dementia, unspecified severity, with behavioral disturbance; E86.0 Dehydration; Z73.6 Limitation of activities due to disability; F41.9 Anxiety disorder, unspecified; I10 Essential (primary) hypertension; F32.9 Major depressive disorder, single episode, unspecified; E86.1 Hypovolemia; E78.5 Hyperlipidemia, unspecified; E87.6 Hypokalemia; L98.9 Disorder of the skin and subcutaneous tissue, unspecified; R23.3 Spontaneous ecchymoses
CPT/HCPCS: 36415; 80048-TC; 80053-TC; 80061-TC; 85025-TC

== ENCOUNTER 2017-12-21 16:30 | Inpatient (IN) | payer MEDICARE, OTHER ==
[~2017-12-21] VITALS: Ht 182.9 cm; Wt 70.3 kg
[~2017-12-21 16:30] MED LIST changes: -LORA1TAB PO; -RISP0.253 PO; -ZOLP5TAB8 PO
--- NOTE | 2017-12-21 16:30 | NUR ---
SENT BY DR VANCE FROM [facility] C/O FAILURE TO THRIVE AND FOR G T PLACEMENT EVAL. NAD NOTED. PT AAO X1, FORGETFUL, FOLLOWS COMMANDS. RR EVEN AND UNLABROED. VSKareem. AT BEDSIDE FOR EVAL.
[2017-12-21 17:09] LABS: BASOPHILS # (AUTO) 0.1 /CMM (0.0-0.2); BASOPHILS % (AUTO) 1.1 % (0.0-2.0); EOSINOPHILS # (AUTO) 0.2 /CMM (0.0-0.7); EOSINOPHILS % (AUTO) 2.5 % (0.0-6.0); HEMATOCRIT 39 % (39-51); HEMOGLOBIN 13.2 g/dL (13.5-17.5); LYMPHOCYTES # (AUTO) 1.3 /CMM (0.8-4.8); MEAN CORPUSCULAR HEMOGLOBIN 30 PG (26.0-33.0); MEAN CORPUSCULAR HGB CONC 34 g/dl (31.0-36.0); MEAN CORPUSCULAR VOLUME 88 fL (80-96); MONOCYTES # (AUTO) 0.7 /CMM (0.1-1.30); MONOCYTES % (AUTO) 9.9 % (2.0-12.0); NEUTROPHILS # (AUTO) 4.8 /CMM (1.8-8.9); NEUTROPHILS % (AUTO) 68.5 % (43.0-81.0); PLATELET COUNT (AUTO) 255 /CMM (150-450); RDW COEFFICIENT OF VARIATION 12.9 (11.5-15.0); RED BLOOD CELL COUNT(AUTO) 4.41 MIL/uL (4.5-6.0); WHITE BLOOD COUNT (AUTO) 7.1 K/uL (4.3-11.0)
[2017-12-21 17:20] LABS: CALCIUM, SERUM 9.4 mg/dL (8.5-10.1); CREATININE 0.8 mg/dL (0.6-1.3); POTASSIUM 4.1 mmol/L (3.5-5.1)
[2017-12-21 17:25] LABS: INR 0.97 (0.85-1.15)
[2017-12-21 17:26] LABS: ALBUMIN 2.7 g/dL (3.4-5.0); BILIRUBIN,DIRECT 0.2 mg/dL (0.0-0.2); BILIRUBIN,TOTAL 0.4 mg/dL (0.2-1.0); TOTAL PROTEIN, SERUM 6.2 g/dL (6.4-8.2)
[2017-12-21] MEDS ORDERED: RISP1TAB7 PO (18:05)
[2017-12-21] MEDS ORDERED: MELA3TAB PO (18:05)
[2017-12-21] MEDS ORDERED: NA P133E RC (18:05)
[2017-12-21] MEDS ORDERED: SENN-167 PO (18:05)
--- NOTE | 2017-12-21 18:15 | NUR ---
REPORT GIVEN TO ROB MARX FOR KELLY
[2017-12-21] MEDS ORDERED: ZOLPIDEM TARTRATE 5 MG TABLET PO PRN (18:30)
[2017-12-21] MEDS ORDERED: Z GUARD REMEDY 2 OZ OINT TP PRN (18:30)
[2017-12-21] MEDS ORDERED: MAG HYDROX/AL HYDROX/SIMETH 30 ML UDC PO PRN (18:30)
[2017-12-21] MEDS ORDERED: ONDANSETRON HCL/PF 4 MG/2 ML VIAL IVP PRN (18:30)
[2017-12-21] MEDS ORDERED: ACETAMINOPHEN 325 MG TABLET PO PRN (18:30)
[2017-12-21] MEDS ORDERED: MAGNESIUM HYDROXIDE 30 ML UDC PO PRN (18:30)
--- NOTE | 2017-12-21 18:42 | NUR ---
PT TRANSFERRED TO MED SURG IN STABLE CONDITION
--- NOTE | 2017-12-21 19:30 | NUR ---
RN ADMITTING/OPENING NOTES RECEIVED REPORT FROM DAYSHIFT RNROB. FOUND Pt AWAKE, SITTING IN IJEOMA CHAIR NEXT TO NURSING STATION; WAITING FOR SITTER TO ARRIVE. Pt IS A/OX1, VERY CONFUSED, BUT IS VERBAL. IV ACCESS ON LWRIST #20G. SAFETY MEASURES IN PLACE. WILL CONTINUE TO MONITOR Pt THROUGHOUT THE NIGHT FOR SAFETY.
[2017-12-21 20:00] VITALS: BP 124/94
--- NOTE | 2017-12-21 21:40 | NUR ---
RN NOTES SITTER FOR BOTH & HAS ARRIVED ONTO THE FLOOR.
--- NOTE | 2017-12-21 21:45 | NUR ---
RN NOTES WAS ABLE TO TRANSFER Pt SAFELY TO THE BED.
--- NOTE | 2017-12-22 06:45 | NUR ---
RN CLOSING NOTES NO SIGNIFICANT CHANGES IN Pt's CONDITION. Pt REMAINS IN STABLE CONDITION FOR MS. NO S/S OF ACUTE DISTRESS OR SOB NOTED. ALL NEEDS MET AND ATTENDED TO. SAFETY MEASURES IN PLACE. WILL ENDORSE TO DAYSHIFT RN FOR Pt's KELLY. Pt WILL REMAIN FULL CODE UP UNTIL 1000 TODAY. AT 1001AM Pt WILL BE BACK TO DNR.
[2017-12-22 06:55] LABS: BASOPHILS % (AUTO) 0.4 % (0.0-2.0); EOSINOPHILS # (AUTO) 0.1 /CMM (0.0-0.7); EOSINOPHILS % (AUTO) 2.1 % (0.0-6.0); HEMATOCRIT 38 % (39-51); HEMOGLOBIN 12.9 g/dL (13.5-17.5); LYMPHOCYTES # (AUTO) 1.5 /CMM (0.8-4.8); LYMPHOCYTES % (AUTO) 23.3 % (20.0-44.0); MEAN CORPUSCULAR HEMOGLOBIN 30 PG (26.0-33.0); MEAN CORPUSCULAR HGB CONC 34 g/dl (31.0-36.0); MEAN CORPUSCULAR VOLUME 89 fL (80-96); MONOCYTES # (AUTO) 0.7 /CMM (0.1-1.30); MONOCYTES % (AUTO) 10.1 % (2.0-12.0); NEUTROPHILS # (AUTO) 4.2 /CMM (1.8-8.9); NEUTROPHILS % (AUTO) 64.1 % (43.0-81.0); PLATELET COUNT (AUTO) 269 /CMM (150-450); RDW COEFFICIENT OF VARIATION 13.6 (11.5-15.0); RED BLOOD CELL COUNT(AUTO) 4.27 MIL/uL (4.5-6.0); WHITE BLOOD COUNT (AUTO) 6.6 K/uL (4.3-11.0)
[2017-12-22 06:57] LABS: ALBUMIN 2.8 g/dL (3.4-5.0); BILIRUBIN,TOTAL 0.6 mg/dL (0.2-1.0); CALCIUM, SERUM 9.4 mg/dL (8.5-10.1); CREATININE 0.9 mg/dL (0.6-1.3); MAGNESIUM 1.8 mg/dL (1.8-2.4); PHOSPHORUS 2.9 mg/dL (2.5-4.9); POTASSIUM 3.8 mmol/L (3.5-5.1); TOTAL PROTEIN, SERUM 6.1 g/dL (6.4-8.2)
--- NOTE | 2017-12-22 07:30 | NUR ---
MS/RN OPENING NOTES RECEIVED PATIENT IN BED SLEEPING. RESPIRATION REGULAR AND UNLABORED. IN NO APPARENT DISTRESS. PATIENT NPO. IN STABLE CONDITION. LEFT WRIST G 20 PATENT. BED LOW AND LOCKED. SIDE RAILS UP X3. CALL LIGHT WITHIN REACH. WILL CONTINUE TO MONITOR.
[2017-12-22] MEDS: IV D5/0.45 NACL 1,000 ML IV PRN (07:53)
[2017-12-22 08:00] VITALS: BP 125/64
[2017-12-22] MEDS ORDERED: OLANZAPINE 10 MG VIAL IM ONE (13:30)
--- NOTE | 2017-12-22 14:50 | NUR ---
MS/RN NOTE RECEIVED NEW VERBAL ORDERS FROM STACY CABEZAS. ALL THE ORDERS READ BACK, VERIFIED. NOTED AND CARRIED OUT.
[2017-12-22 16:00] VITALS: BP 112/59
--- NOTE | 2017-12-22 16:57 | NUR ---
patient recently discharged 12/10/2017 to [facility] [address] [place], [place] [address] / fax number [phone]. Patient is readmitted due to failure to thrive and possible GT placement.Patient requires assistance with adl's, chair bound at the SNF. Current plan is to dc back to [facility] when discharge. Addendum: 12/22/17 at 1657 by BRUCE DALY RN Amended: Links added.
[2017-12-22] MEDS: CLOTRIMAZOLE 1% 15 GM TUBE TP SCH (18:57)
--- NOTE | 2017-12-22 18:59 | NUR ---
MS/RN CLOSING NOTE PATIENT IN BED SLEEPING. RESPIRATION REGULAR AND UNLABORED. NO MANIFESTATION OF DISCOMFORT NOTED. ALL NEEDS ATTENDED AND ANTICIPATED. WILL ENDORSE TO [employer] SHOP SUPERVISOR.
--- NOTE | 2017-12-22 19:45 | NUR ---
RN OPENING NOTES RECEIVED REPORT FROM DAYSHIFT RN ALEXEI. FOUND Pt ASLEEP IN BED. NO S/S OF ACUTE DISTRESS OR SOB NOTED. EQUAL CHEST RISE AND FALL. Pt IS A/OX1, VERY CONFUSED, BUT IS VERBAL. IV ACCESS ON LWRIST WAS PULLED OUT, WILL TRY TO INSERT A NEW IV ACCESS. SITTER AT BEDSIDE. SAFETY MEASURES IN PLACE. BED LOW, LOCKED, HOB ELEVATED, SIDE RAILS UP, CALL LIGHT AND BEDSIDE TABLE WITHIN REACH. WILL CONTINUE TO MONITOR Pt THROUGHOUT THE NIGHT FOR SAFETY.
[2017-12-22 20:00] VITALS: BP 112/59
[2017-12-22 20:00] LABS: IRON, SERUM 24 ug/dl (50-175); TOTAL IRON BINDING CAPACITY 203 ug/dl (250-450)
--- NOTE | 2017-12-23 06:50 | NUR ---
RN CLOSING NOTES NO SIGNIFICANT CHANGES IN Pt's CONDITION. Pt REMAINS STABLE AT THIS TIME. NO S/S OF ACUTE DISTRESS OR SOB NOTED DURING THE NIGHT. ALL NEEDS MET AND ATTENDED TO. SAFETY MEASURES IN PLACE. WILL ENDORSE TO DAYSHIFT RN FOR Pt's KELLY.
--- NOTE | 2017-12-23 07:30 | NUR ---
MS/RN OPENING NOTE PATIENT IN BED SLEEPING. RESPONSIVE TO VERBAL AND TACTILE STIMULI. RESPIRATION REGULAR AND UNLABORED. IN NO APPARENT DISTRESS. BED LOW AND LOCKED. SIDE RAILS UP X3. CALL LIGHT WITHIN REACH. WILL CONTINUE TO MONITOR.
[2017-12-23 08:00] VITALS: BP 132/72
[2017-12-23] MEDS: CLOTRIMAZOLE 1% 15 GM TUBE TP SCH ×2 (09:17→17:07)
[2017-12-23] MEDS: PANTOPRAZOLE 40 MG VIAL IV SCH (09:17)
[2017-12-23] MEDS: HALOPERIDOL 1 MG TABLET PO SCH ×2 (12:44→17:00)
[2017-12-23] MEDS: BENZTROPINE MESYLATE (1 MG) 1 MG TABLET PO SCH ×2 (12:45→17:06)
[2017-12-23 16:00] VITALS: BP 130/73
[2017-12-23] MEDS ORDERED: LORAZEPAM INJ 2 MG/ML VIAL IV STA ×3 (16:31→17:48)
--- NOTE | 2017-12-23 16:34 | NUR ---
MS/RN NOTE RECEIVED TEL ORDER FROM DR ZHU. ALL ORDERS READ BACK, VERIFIED. NOTED AND CARRIED OUT.
[2017-12-23] MEDS ORDERED: HALOPERIDOL 1 MG TABLET PO ONE (17:00)
--- NOTE | 2017-12-23 18:59 | NUR ---
MS/RN CLOSING NOTE PATIENT IN BED SLEEPING. RESPONSIVE TO VERBAL AND TACTILE STIMULI. RESPIRATION REGULAR AND UNLABORED. NO MANIFESTATION OF DISTRESS. BED LOW AND LOCKED. SIDE RAILS UP X3. CALL LIGHT WITHIN REACH. WILL ENDORSE TO NIGH SHIFT.
--- NOTE | 2017-12-23 19:50 | NUR ---
MS RN NOTES IN BED,CONFUSED,FALL RISK,SITTER AT BEDSIDE FOR SAFETY.PRESENT IVF IN PROGRESS AT 75ML/HR RATE,SITE PATENT ON LFA.WILL CONTINUE TO MONITOR STATUS.
[2017-12-23 20:00] VITALS: BP 95/52
--- NOTE | 2017-12-24 07:18 | NUR ---
MS RN NOTES SLEPT WITH INTERVALS,REMAINS CONFUSED.NO FALL,NO INJURY.WITH SITTER FOR SAFETY.CT HEAD REVEALS OLD INFARCT,NEGATIVE FOR INTRACRANIAL MASSES,HEMORRHAGES ON MIDLINE SHIFT.WILL ENDORSE TO DAY NURSE FOR KELLY.
--- NOTE | 2017-12-24 07:28 | NUR ---
MS RN OPENING NOTES RECEIVED PATIENT IN BED AWAKE, ALERT, RESTLESS AND CONFUSED WITH SITTER AT BEDSIDE FOR CLOSE MONITORING. ON ROOM AIR, BREATHING EVEN WITH NO SOB NOTED. IV ACCESS ON LEFT FA INTACT AND PATENT, D5 1/2 NS INFUSING. BED IN LOW AND LOCKED WITH SIDE-RAILS UP. CALL LIGHT KEEP IN REACH. ALL SAFETY AND FALL PRECAUTIONS MAINTAINED. WILL CONTINUE TO CLOSELY MONITOR PT.
[2017-12-24 08:12] VITALS: BP 111/66
[2017-12-24] MEDS: BENZTROPINE MESYLATE (1 MG) 1 MG TABLET PO SCH ×3 (08:53→17:41)
[2017-12-24] MEDS: PANTOPRAZOLE 40 MG VIAL IV SCH (08:53)
[2017-12-24] MEDS: HALOPERIDOL 1 MG TABLET PO SCH (08:53)
[2017-12-24] MEDS: CLOTRIMAZOLE 1% 15 GM TUBE TP SCH ×2 (08:58→17:42)
[2017-12-24] MEDS ORDERED: TEMAZEPAM 7.5 MG CAPSULE PO PRN (12:00)
[2017-12-24] MEDS: risperiDONE 1 MG TABLET PO SCH ×2 (12:42→17:41)
[2017-12-24] MEDS: BRIMONIDINE TARTRATE OPHT SOLN 5 ML BOTTLE LEFTEYE SCH ×2 (13:00→17:00)
[2017-12-24] MEDS: POLY B LEFTEYE SCH ×4 (13:37→23:53)
[2017-12-24] MEDS: BACITRACIN LEFTEYE SCH ×4 (13:37→23:53)
[2017-12-24] MEDS: TIMOLOL MAL/DORZOLAM HCL OPHTH 10 ML BOTTLE LEFTEYE SCH ×2 (13:38→21:01)
--- NOTE | 2017-12-24 13:39 | NUR ---
RN NOTES PT'S BRIMONIDINE TARTRATE EYE DROP DIDN'T DELIVER BY PHARMACY, F/U DONE TO PHARMACIST AND SAID THAT THEY WILL REPLACE THE BRIMONIDINE TARTRATE TO ANOTHER EYEDROP. WILL CONTINUE TO MONITOR.
[2017-12-24] MEDS: DIVALPROEX SODIUM 125 MG TABLET.DR PO SCH ×2 (13:40→17:41)
[2017-12-24 16:00] VITALS: BP 112/87
--- NOTE | 2017-12-24 18:57 | NUR ---
MS RN CLOSING NOTES PATIENT IN BED ASLEEP AT THIS TIME, EASILY AWAKENS. ALERT AND ORIENTED X1, RESTLESS AND CONFUSED ON AND OFF DURING THE DAY. ON ROOM AIR, BREATHING EVEN WITH NO SOB NOTED. IV ACCESS ON LEFT FA INTACT AND PATENT, D5 1/2 NS INFUSING. BED IN LOW AND LOCKED WITH SIDE-RAILS UP. CALL LIGHT KEEP IN REACH. ALL SAFETY AND FALL PRECAUTIONS MAINTAINED. ALL NEEDS AND CARE PROVIDED WELL. WILL ENDORSED TO DIRECTOR OF FEDERAL SALES NURSE FOR KELLY.
--- NOTE | 2017-12-24 19:00 | NUR ---
MS MARX NOTE: A/O X4, NO ACUTE DISTRESS NOTED. BREATHING EVEN AND UNLABORED, NO SOB NOTED. BED LOCKED AND IN LOWEST POSITION, CALL LIGHT IN REACH. WILL CONTINUE TO MONITOR. Addendum: 12/24/17 at 1957 by ADORE VILCHIS RN MISTAKEN ENTRY/ FOR DIFFERENT PT
--- NOTE | 2017-12-24 19:58 | NUR ---
MS RN NOTE: IN BED, CONFUSED, 1:1 SITTER, NO ACUTE DISTRESS NOTED. BREATHING EVEN AND UNLABORED, NO SOB NOTED. BED LOCKED AND IN LOWEST POSITION, CALL LIGHT IN REACH. WILL CONTINUE TO MONITOR
[2017-12-24 20:00] VITALS: BP 159/67
[2017-12-24] MEDS: IV D5/0.45 NACL 1,000 ML IV PRN (23:50)
[2017-12-25] MEDS: POLY B LEFTEYE SCH ×5 (05:17→21:18)
[2017-12-25] MEDS: BACITRACIN LEFTEYE SCH ×5 (05:17→21:18)
--- NOTE | 2017-12-25 06:59 | NUR ---
MS RN CLOSING NOTES PT COMFORTABLY ASLEEP AND EASILY AWAKEN, TOLERATING ROOM AIR 02 SAT 98% 1:1 SITTER, IN STABLE CONDITION. RESPIRATION EVEN AND UNLABORED. KEPT CLEAN AND DRY AND COMFORTABLE, ALL NURSING CARE RENDERED. NEEDS ATTENDED AND ANTICIPATED, FREQUENT VISUAL CHECK DONE FOR SAFETY EVERY 2 HOURS. GOOD SKIN CARE PROVIDED. REPOSITION Q2H. ON LOW BED AT ALL TIMES TO ENSURE SAFETY. SAFE HAZARD FREE ENVIRONMENT PROVIDED. CALL LIGHT WITHIN EASY TO REACH. WILL ENDORSE NEXT SHIFT CONTINUITY OF CARE
--- NOTE | 2017-12-25 08:00 | NUR ---
RN NOTES PATIENT A/OX1, CONFUSED, NO S/SX OF PAIN OR DISCOMFORT, BREATHING EVEN AND UNLABORED, NO SOB NOTED, TRIED TO FEED PATIENT BUT HE'S REFUSING AT THIS TIME. KEPT COMFORTABLE, NEEDS ATTENDED AND MET, CALL LIGHT WITHIN REACH, WILL CONTINUE TO MONITOR.
[2017-12-25 08:48] VITALS: BP 116/69
[2017-12-25] MEDS: BENZTROPINE MESYLATE (1 MG) 1 MG TABLET PO SCH ×3 (10:06→17:25)
[2017-12-25] MEDS: DIVALPROEX SODIUM 125 MG TABLET.DR PO SCH ×3 (10:06→17:25)
[2017-12-25] MEDS: risperiDONE 1 MG TABLET PO SCH ×3 (10:06→17:25)
[2017-12-25] MEDS: CLOTRIMAZOLE 1% 15 GM TUBE TP SCH ×2 (10:07→17:29)
[2017-12-25] MEDS: TIMOLOL MAL/DORZOLAM HCL OPHTH 10 ML BOTTLE LEFTEYE SCH ×2 (10:09→21:16)
[2017-12-25] MEDS: PANTOPRAZOLE 40 MG VIAL IV SCH (10:09)
--- NOTE | 2017-12-25 11:00 | NUR ---
RN NOTES PATIENT SEEN AND EXAMINED BY DR. PETIT. NO NEW ORDER AT THIS TIME. PER MD CONTINUE TO MONITOR.
[2017-12-25] MEDS: OLANZAPINE 2.5 MG TABLET PO SCH ×2 (13:42→17:26)
[2017-12-25 16:18] VITALS: BP 131/89
--- NOTE | 2017-12-25 18:49 | NUR ---
RN NOTES PATIENT A/OX1, CONFUSED, NO DISTRESS NOTED, PATIENT ABLE TO DRINK MEDICATIONS CRUSHED WITH APPLESAUCE, ON IVF AND TOLERATING WELL, PATIENT ASSISTED WITH TURNING AND REPOSITIONING, PATIENT LIKES TO STAY ON HIS SIDES MOST OF THE TIME. ALL NEEDS ATTENDED AND MET, CALL LIGHT WITHIN REACH, WILL ENDORSE TO WRAPPER COUNTER FOR KELLY.
--- NOTE | 2017-12-25 19:25 | NUR ---
RN NOTES RECEIVE IN BED, PATIENT A/OX1, CONFUSED, NO S/SX OF PAIN OR DISCOMFORT, BREATHING EVEN AND UNLABORED, NO SOB NOTED,SAFETY MEASURES ARE IN PLACE, CALL LIGHT WITHIN REACH, WILL CONTINUE TO MONITOR.
[2017-12-25 20:00] VITALS: BP 123/77
[2017-12-25 20:45] VITALS: BP 123/77
[2017-12-25] MEDS: IV D5/0.45 NACL 1,000 ML IV PRN (21:19)
[2017-12-25] MEDS: MIRTAZAPINE SOLUTAB 15 MG/UDTABLET TAB.RAPDIS PO SCH (21:19)
[2017-12-26] MEDS: POLY B LEFTEYE SCH ×6 (01:35→21:18)
[2017-12-26] MEDS: BACITRACIN LEFTEYE SCH ×6 (01:35→21:18)
[2017-12-26] MEDS: BRIMONIDINE TARTRATE OPHT SOLN 5 ML BOTTLE LEFTEYE SCH ×4 (04:55→17:13)
--- NOTE | 2017-12-26 06:49 | NUR ---
MS RN CLOSING NOTES PT ASLEEP IN BED AND EASILY AWAKEN, HOB ELEVATED, 1:1 SITTER. TOLERATING ROOM AIR 02 SAT 99%, AFEBRILE, IN STABLE CONDITION. RESPIRATION EVEN AND UNLABORED. ALL NURSING CARE RENDERED. NEEDS ATTENDED AND ANTICIPATED, KEPT CLEAN AND DRY AND COMFORTABLE. FREQUENT VISUAL CHECK DONE FOR SAFETY EVERY 2 HOURS. TREATMENT ORDERED. GOOD SKIN CARE PROVIDED. ON LOW BED AT ALL TIMES TO ENSURE SAFETY. SAFE HAZARD FREE ENVIRONMENT PROVIDED. CALL LIGHT WITHIN EASY TO REACH. WILL ENDORSE NEXT SHIFT CONTINUITY OF CARE. GOOD EYE CARE PROVIDED. Addendum: 12/26/17 at 0702 by ADORE VILCHIS RN ASSIST REPOSITION Q2H
--- NOTE | 2017-12-26 07:30 | NUR ---
RN MS NOTES PT IN BED, AWAKE, ALERT TO SELF, WITH CONFUSION, NO SIGN OF PAIN OR DISCOMFORT, NOT IN DISTRESS, SITTER AT BEDSIDE, SAFETY PRECAUTIONS OBSERVED, CALL LIGHT WITHIN REACH, KEPT COMFORTABLE.
[2017-12-26] MEDS: CLOTRIMAZOLE 1% 15 GM TUBE TP SCH ×2 (09:00→17:12)
[2017-12-26] MEDS: BENZTROPINE MESYLATE (1 MG) 1 MG TABLET PO SCH ×3 (09:31→17:13)
[2017-12-26] MEDS: PANTOPRAZOLE 40 MG VIAL IV SCH (09:31)
[2017-12-26] MEDS: risperiDONE 1 MG TABLET PO SCH ×3 (09:31→17:13)
[2017-12-26] MEDS: DIVALPROEX SODIUM 125 MG TABLET.DR PO SCH ×3 (09:36→17:13)
[2017-12-26] MEDS: TIMOLOL MAL/DORZOLAM HCL OPHTH 10 ML BOTTLE LEFTEYE SCH ×2 (09:37→21:18)
[2017-12-26] MEDS: OLANZAPINE 2.5 MG TABLET PO SCH ×3 (09:37→17:14)
[2017-12-26 12:54] LABS: BASOPHILS % (AUTO) 0.2 % (0.0-2.0); EOSINOPHILS # (AUTO) 0.1 /CMM (0.0-0.7); EOSINOPHILS % (AUTO) 2.3 % (0.0-6.0); HEMATOCRIT 41 % (39-51); HEMOGLOBIN 13.9 g/dL (13.5-17.5); LYMPHOCYTES # (AUTO) 1.4 /CMM (0.8-4.8); LYMPHOCYTES % (AUTO) 23.6 % (20.0-44.0); MEAN CORPUSCULAR HEMOGLOBIN 30 PG (26.0-33.0); MEAN CORPUSCULAR HGB CONC 34 g/dl (31.0-36.0); MEAN CORPUSCULAR VOLUME 88 fL (80-96); MONOCYTES # (AUTO) 0.6 /CMM (0.1-1.30); MONOCYTES % (AUTO) 9.3 % (2.0-12.0); NEUTROPHILS # (AUTO) 3.9 /CMM (1.8-8.9); NEUTROPHILS % (AUTO) 64.6 % (43.0-81.0); PLATELET COUNT (AUTO) 286 /CMM (150-450); RDW COEFFICIENT OF VARIATION 13.9 (11.5-15.0); RED BLOOD CELL COUNT(AUTO) 4.66 MIL/uL (4.5-6.0); WHITE BLOOD COUNT (AUTO) 6.1 K/uL (4.3-11.0)
[2017-12-26 13:09] LABS: INR 1.04 (0.87-1.13)
[2017-12-26 13:10] LABS: ALBUMIN 2.7 g/dL (3.4-5.0); BILIRUBIN,TOTAL 0.5 mg/dL (0.2-1.0); CALCIUM, SERUM 9.1 mg/dL (8.5-10.1); CREATININE 0.9 mg/dL (0.6-1.3); POTASSIUM 4.1 mmol/L (3.5-5.1); TOTAL PROTEIN, SERUM 6.2 g/dL (6.4-8.2)
--- NOTE | 2017-12-26 15:00 | NUR ---
RN MS NOTES PT IN BED, AWAKE, WITH CONFUSION, NO SIGN OF PAIN OR DISTRESS, SITTER AT BEDSIDE, SAFETY PRECAUTIONS OBSERVED, SEEN BY DR. BOOGIE.
[2017-12-26] MEDS: SOD FERRIC GLUC 125 MG in IV NS 0.9% 100 ML IV SCH (17:44)
--- NOTE | 2017-12-26 18:34 | NUR ---
RN MS NOTES PT IN BED, ALERT TO SELF, WITH CONFUSION, NO FACIAL GRIMACING OR MOANING, RESPIRATIONS NORMAL AND NOT LABORED, SAFETY PRECAUTIONS OBSERVED, PM MEDS GIVEN ORDERED, CALL LIGHT WITHIN REACH, ALL NEEDS ATTENDED.
--- NOTE | 2017-12-26 19:00 | NUR ---
RN NOTES RECEIVE PT IN BED, STABLE, NO S/S OF DISTRESS, CONFUSED, 1:1 SITTER. PATIENT KEPT COMFORTABLE AT THIS TIME, SAFETY MEASURES IN PLACE, CALL LIGHT WITHIN REACH, WILL CONTINUE TO MONITOR.
[2017-12-26 20:00] VITALS: BP 112/64
[2017-12-26] MEDS: IV D5/0.45 NACL 1,000 ML IV PRN (21:13)
[2017-12-26] MEDS: MIRTAZAPINE SOLUTAB 15 MG/UDTABLET TAB.RAPDIS PO SCH (21:19)
[2017-12-27] MEDS: POLY B LEFTEYE SCH ×6 (00:05→21:05)
[2017-12-27] MEDS: BACITRACIN LEFTEYE SCH ×6 (00:05→21:05)
--- NOTE | 2017-12-27 06:29 | NUR ---
MS RN CLOSING NOTES PATIENT IN BED ASLEEP AND EASILY AWAKEN, STABLE, TOLERATING ROOM AIR 98% 1:1 SITTER AT BEDSIDE, HEAD OF BED ELEVATED FOR BETTER LUNG EXPANSION AND GOOD CIRCULATION. NO SOB, NOT IN APPARENT DISTRESS, NO NAUSEA, NO VOMITING, IV SITE INTACT WITH NO S/S OF INFILTRATION NOTED, KEPT CLEAN AND DRY AND COMFORTABLE. VS STABLE, ALL DUE MEDS WAS GIVEN. NEEDS ATTENDED AND ANTICIPATED. NURSING CARE RENDERED, KEPT CLEAN DRY AND COMFORTABLE. ASSISTED REPOSITION EVERY 2 HOURS FOR COMFORT AND SKIN MANAGEMENT. PT ON LOW BED TO ENSURE SAFETY, CALL LIGHT WITHIN REACH, WILL ENDORSE TO THE NEXT SHIFT CONTINUE PLAN OF CARE.
[2017-12-27 08:57] VITALS: BP 144/76
[2017-12-27] MEDS: OLANZAPINE 2.5 MG TABLET PO SCH ×3 (09:20→16:49)
[2017-12-27] MEDS: BENZTROPINE MESYLATE (1 MG) 1 MG TABLET PO SCH ×3 (09:20→16:49)
[2017-12-27] MEDS: risperiDONE 1 MG TABLET PO SCH ×3 (09:20→16:49)
[2017-12-27] MEDS: DIVALPROEX SODIUM 125 MG TABLET.DR PO SCH ×3 (09:20→16:49)
[2017-12-27] MEDS: PANTOPRAZOLE 40 MG VIAL IV SCH (09:20)
[2017-12-27] MEDS: TIMOLOL MAL/DORZOLAM HCL OPHTH 10 ML BOTTLE LEFTEYE SCH ×2 (09:27→21:06)
[2017-12-27] MEDS: BRIMONIDINE TARTRATE OPHT SOLN 5 ML BOTTLE LEFTEYE SCH ×3 (09:28→16:57)
[2017-12-27] MEDS: CLOTRIMAZOLE 1% 15 GM TUBE TP SCH ×2 (09:30→16:58)
--- NOTE | 2017-12-27 09:36 | NUR ---
MS RN NOTES PATIENT IN BED, AWAKE. APPEARS ANXIOUS AND CONFUSED. TOLERATING ROOM AIR, NO SOB. REORIENTED, 1:1 SITTER AT THE BEDSIDE. IVC VITO PATENT AND INTACT, IVF NS INFUSING AT 75ML/HR. MAINTAIN SAFETY PRECAUTION, SIDE RAILS UP X2. WILL CONT TO MONITOR. Addendum: 12/27/17 at 1102 by CHRIS REAVES RN CLARIFICATION ABOVE NOTES: CURRENTLY INFUSING D5 1/2 NS AT 75ML/HR.
[2017-12-27] MEDS: HYDROCODONE/APAP 5/325MG 1 EACH TABLET PO PRN (09:53)
[2017-12-27] MEDS: IV D5/0.45 NACL 1,000 ML IV PRN (11:07)
[2017-12-27] MEDS: LORAZEPAM 1 MG TABLET PO PRN (14:00)
[2017-12-27] MEDS: SOD FERRIC GLUC 125 MG in IV NS 0.9% 100 ML IV SCH (14:02)
[2017-12-27 15:41] VITALS: BP 109/61
--- NOTE | 2017-12-27 18:44 | NUR ---
MS RN CLOSING NOTES PATIENT IS CONFUSED, FREQUENT REORIENTATION GIVEN. EPISODE OF AGITATION AND ATTEMPTED TO GET OUT FROM BED, SLIDES HIMSELF TO THE EDGE OF THE BED, GIVEN ATIVAN 1MG PO PRN ORDERED, EFFECTIVE. 1:1 SITTER AT THE BEDSIDE, PATIENT ALSO CAN HAVE BILATERAL SOFT WRIST RESTRAINT NEEDED PER MD. MAINTAIN SAFETY PRECAUTION. POOR APPETITE, POSSIBLE PEG PLACEMENT NEXT PER STATEMENT CLERKS SUPERVISOR-RAULITO REINOSO. WILL ENDORSE TO ONCOMING RN.
--- NOTE | 2017-12-27 19:30 | NUR ---
RN NOTE; RECEIVED PT IN BED ANXIOUS AND RESTLESS IN BED W/ SITTER AT THE BED SIDE. BREATHING EVENLY. NO OSB. NAD . BED LOW LOCKED AND ISRAEL LIGHT WITHIN REACH. WILL CONT TO MONITOR FOR SAFETY AND FALL RISK.
[2017-12-27 20:00] VITALS: BP 138/74
[2017-12-27 20:04] VITALS: BP 138/74
[2017-12-27] MEDS: MIRTAZAPINE SOLUTAB 15 MG/UDTABLET TAB.RAPDIS PO SCH (21:03)
[2017-12-28] MEDS: BACITRACIN LEFTEYE SCH ×6 (00:18→20:15)
[2017-12-28] MEDS: POLY B LEFTEYE SCH ×6 (00:18→20:15)
[2017-12-28] MEDS: LORAZEPAM 1 MG TABLET PO PRN (01:08)
--- NOTE | 2017-12-28 01:08 | NUR ---
Ativan given as ordered for anxiety and agitation and constant attempt to get out of bed. will cont to monitor ,
[2017-12-28] MEDS: IV D5/0.45 NACL 1,000 ML IV PRN ×2 (03:42→18:24)
--- NOTE | 2017-12-28 06:41 | NUR ---
PT IN BED SLEEPING .AROUSES EASILY. BREATHING EVENLY. NO SOB NAD .SKIN WARM AND DRY. NO C/O PAIN OR DISCOMFORT . REMAINED ON CLOSE MONITORING FOR FALL AND SAFETY, NEEDS ATTENDED . BED LOW LOCKED. CALL LIGHT WITHIN REACH, WILL CONT TO MONITOR AND WILL ENDORSE TO AM SHIFT FOR KELLY,
[2017-12-28 08:00] VITALS: BP 118/70
[2017-12-28] MEDS: PANTOPRAZOLE 40 MG VIAL IV SCH (08:51)
--- NOTE | 2017-12-28 08:54 | NUR ---
MS RN NOTES PATIENT IN BED, SLEEPING, AROUSES EASILY. TOLERATING ROOM AIR, NO SOB. IVC VITO PATENT AND INTACT, IVF D5 1/2 NS INFUSING AT 75ML/HR. MAINTAIN SAFETY PRECAUTION, SIDE RAILS UP X2. 1:1 SITTER AT THE BEDSIDE. WILL CONT TO MONITOR.
[2017-12-28] MEDS: BRIMONIDINE TARTRATE OPHT SOLN 5 ML BOTTLE LEFTEYE SCH ×3 (09:03→17:26)
[2017-12-28] MEDS: TIMOLOL MAL/DORZOLAM HCL OPHTH 10 ML BOTTLE LEFTEYE SCH ×2 (09:03→17:26)
[2017-12-28] MEDS: BENZTROPINE MESYLATE (1 MG) 1 MG TABLET PO SCH ×3 (09:54→17:10)
[2017-12-28] MEDS: OLANZAPINE 2.5 MG TABLET PO SCH ×3 (09:55→17:10)
[2017-12-28] MEDS: risperiDONE 1 MG TABLET PO SCH ×3 (09:55→17:10)
[2017-12-28] MEDS: DIVALPROEX SODIUM 125 MG TABLET.DR PO SCH ×3 (09:55→17:10)
[2017-12-28] MEDS: CLOTRIMAZOLE 1% 15 GM TUBE TP SCH ×2 (09:58→17:11)
[2017-12-28] MEDS: SOD FERRIC GLUC 125 MG in IV NS 0.9% 100 ML IV SCH (14:33)
[2017-12-28 16:00] VITALS: BP 118/70
[2017-12-28] MEDS: MEGESTROL ACETATE 40 MG TABLET PO SCH (17:12)
[2017-12-28] MEDS: BOOST PLUS FOOD-CHOCLATE 237 ML BOX PO SCH (18:08)
--- NOTE | 2017-12-28 19:19 | NUR ---
MS RN CLOSING NOTES PATIENT IS CONFUSED, FREQUENT REORIENTATION GIVEN. UNCOOPERATIVE, POOR APPETITE. RD RECOMMENDED BOOST SUPP AND MEGACE FOR APPETITE STIMULANT. SEEN BY DR. ZHU TODAY, WILL COLLECT URINE FOR TEST. MAINTAIN SAFETY PRECAUTION. PATIENT MAY HAVE SOFT WRIST RESTRAINT PRN ORDERED. WILL ENDORSE TO ONCOMING RN.
--- NOTE | 2017-12-28 19:30 | NUR ---
MS RN NOTES PATIENT RECEIVED RESTING INSIDE ROOM. AWAKE, ALERT TO SELF WITH PERIODS OF CONFUSION, NOTED WITH ATTEMPTS OF GETTING OUT OF BED. PATIENT REORIENTED TO PLACE, TIME AND SITUATION. BREATHNG EVEN AND UNLABORED. NO SOB OR ACUTE DISTRESS NOTED AT THIS TIME. PATIENT AFEBRILE, SKIN DRY AND WARM TO TOUCH. NO CHANGES IN LOC NOTED AT THIS TIME. DENIES ANY PAIN OR DISCOMFORT. WILL CONTINUE TO MONITOR. BILATERAL UPPER SIDE RAILS UP AND LOCKED. BED LOCKED AND IN LOW POSITION. CALL LIGHT WITHIN EASY REACH
[2017-12-28 20:00] VITALS: BP 126/70
[2017-12-28] MEDS: MIRTAZAPINE SOLUTAB 15 MG/UDTABLET TAB.RAPDIS PO SCH (21:26)
[2017-12-28] MEDS: POLY B RIGHTEYE SCH (23:32)
[2017-12-28] MEDS: BACITRACIN RIGHTEYE SCH (23:32)
[2017-12-29] MEDS: BACITRACIN RIGHTEYE SCH ×6 (04:22→23:59)
[2017-12-29] MEDS: POLY B RIGHTEYE SCH ×6 (04:22→23:59)
[2017-12-29 06:18] LABS: APPEARANCE,URINE CLEAR (CLEAR); BILIRUBIN,URINE NEGATIVE (NEGATIVE); BLOOD, URINE TRACE-INTA Ery/uL (NEGATIVE); COLOR,URINE YELLOW (YELLOW); KETONES,URINE NEGATIVE (NEGATIVE); LEUKOCYTE ESTERASE ,URINE NEGATIVE (NEGATIVE); NITRITE, URINE NEGATIVE (NEGATIVE); PH,URINE 7.5 (5.0-8.0); PROTEIN,URINE NEGATIVE (NEGATIVE); UGLUCOSE NEGATIVE (NEGATIVE); UROBILINOGEN,URINE 0.2 EU/dL (0.2)
[2017-12-29 06:21] LABS: BACTERIA,URINE Rare /HPF (None Seen); RBC,URINE 0-2 /HPF (0-2); SQUAMOUS EPITHELIAL CELL,UR Few /HPF (None Seen); WBC,URINE 0-2 /HPF (0-3)
--- NOTE | 2017-12-29 06:43 | NUR ---
MS RN NOTES PATIENT RESTING INSIDE ROOM, AWAKE, ALERT, VERBALLY RESPONSIVE AND RESPONDS TO VERBAL AND TACTILE STIMULI. PATIENT MARYJO PERIODS OF CONFUSION, RE-ORIENTED NEEDED. IV SITE ON VITO INTACT AND PATENT, NO BLEEDING OR SWELLING NOTED. URINE SPECIMEN OBTAINED AND SENT TO LAB. AWAITING FOR RESULTS. BILATERAL UPPER SIDE RAILS UP AND LOCKED. BED LOCKED AND IN LOW POSITION. ALL NURSING NEEDS ATTENDED AND MET. ALL DUE MEDICATIONS GIVEN AND TOLERATED WELL. CALL LIGHT WITHIN EASY REACH. WILL ENDORSE TO INCOMING SHIFT
[2017-12-29 08:00] VITALS: BP 111/77
[2017-12-29] MEDS: TIMOLOL MAL/DORZOLAM HCL OPHTH 10 ML BOTTLE LEFTEYE SCH ×2 (08:35→21:21)
[2017-12-29] MEDS: BRIMONIDINE TARTRATE OPHT SOLN 5 ML BOTTLE LEFTEYE SCH ×3 (08:35→16:27)
[2017-12-29] MEDS: PANTOPRAZOLE 40 MG VIAL IV SCH (08:40)
[2017-12-29] MEDS: BOOST PLUS FOOD-CHOCLATE 237 ML BOX PO SCH ×3 (08:40→16:54)
[2017-12-29] MEDS: MEGESTROL ACETATE 40 MG TABLET PO SCH (08:43)
[2017-12-29] MEDS: DIVALPROEX SODIUM 125 MG TABLET.DR PO SCH ×3 (08:46→16:46)
[2017-12-29] MEDS: OLANZAPINE 2.5 MG TABLET PO SCH ×3 (08:46→16:47)
[2017-12-29] MEDS: risperiDONE 1 MG TABLET PO SCH ×3 (08:46→16:47)
[2017-12-29] MEDS: BENZTROPINE MESYLATE (1 MG) 1 MG TABLET PO SCH ×3 (08:46→16:46)
[2017-12-29] MEDS: CLOTRIMAZOLE 1% 15 GM TUBE TP SCH ×2 (08:47→16:54)
--- NOTE | 2017-12-29 08:50 | NUR ---
MS RN NOTES PATIENT IN BED, CONFUSED. VERY POOR APPETITE, UNCOOPERATIVE. IVC VITO PATENT AND INTACT, IVF D5 1/2 NS INFUSING AT 75ML/HR. MAINTAIN SAFETY PRECAUTION, SIDE RAILS UP X2. WILL CONT TO MONITOR.
[2017-12-29] MEDS: IV D5/0.45 NACL 1,000 ML IV PRN (10:18)
[2017-12-29] MEDS: SOD FERRIC GLUC 125 MG in IV NS 0.9% 100 ML IV SCH (15:44)
[2017-12-29 16:00] VITALS: BP 126/52
--- NOTE | 2017-12-29 18:38 | NUR ---
MS RN CLOSING NOTES PATIENT IS CONFUSED, FREQUENT REORIENTATION GIVEN. UNCOOPERATIVE, POOR APPETITE. STILL ON CALORIE COUNT. IVC IN RFA PATENT AND INTACT, IVF D5 1/5 NS INFUSING AT 75ML/HR. PLAN POSSIBLE PEG PLACEMENT. MAINTAIN SAFETY PRECAUTION. BED LOW AND LOCKED, SIDE RAILS UP X2. WILL ENDORSE TO ONCOMING RN.
--- NOTE | 2017-12-29 19:25 | NUR ---
RN OPEN NOTES RECEIVED PATIENT AWAKE IN BED. A/O X1. NO SIGNS OF DISTRESS OR DISCOMFORT. BREATHING EVEN AND UNLABORED. IV ACCESS IN VITO WITH D5 1/2 NS INFUSING, PATENT AND INTACT, NO SIGNS OF REDNESS OR INFILTRATION. BED IN LOW LOCKED POSITION WITH SIDE RAILS X3. CALL LIGHT WITHIN REACH. WILL CONTINUE TO MONITOR.
[2017-12-29 20:00] VITALS: BP 140/72
[2017-12-29 20:04] VITALS: BP 140/72
[2017-12-29] MEDS: MIRTAZAPINE SOLUTAB 15 MG/UDTABLET TAB.RAPDIS PO SCH (21:20)
[2017-12-30] MEDS: BACITRACIN RIGHTEYE SCH ×5 (04:45→22:05)
[2017-12-30] MEDS: POLY B RIGHTEYE SCH ×5 (04:45→22:05)
[2017-12-30] MEDS: IV D5/0.45 NACL 1,000 ML IV PRN (06:49)
--- NOTE | 2017-12-30 07:10 | NUR ---
REPORT RECEIVED AT THE BEDSIDE. PATIENT IS SLEEPING AT THIS TIME. NO SOB OR DISTRESS NOTED. PATIENT DOES NOT APPEAR TO BE IN PAIN, NO FACIAL GRIMACE. BED IN A LOW POSITION, CALL LIGHT WITHIN PATIENT REACH. WILL CONTINUE TO MONITOR.
--- NOTE | 2017-12-30 07:40 | NUR ---
RN CLOSING NOTES PATIENT RESTING IN BED EASILY AROUSABLE. A/O X1. NO SIGNS OF DISTRESS OR DISCOMFORT. BREATHING EVEN AND UNLABORED. IV ACCESS IN VITO INFUSING D5 1/2 NS, PATENT AND INTACT, NO SIGNS OF REDNESS OR INFILTRATION. ALL NEEDS MET. NO SIGNIFICANT CHANGES THROUGH THE NIGHT. BED IN LOW LOCKED POSITION WITH SIDE RAILS X3. CALL LIGHT WITHIN REACH. ENDORSED TO AM SHIFT FOR KELLY.
[2017-12-30 08:00] VITALS: BP 127/67
[2017-12-30] MEDS: BENZTROPINE MESYLATE (1 MG) 1 MG TABLET PO SCH (08:30)
[2017-12-30] MEDS: OLANZAPINE 2.5 MG TABLET PO SCH ×4 (08:30→22:05)
[2017-12-30] MEDS: PANTOPRAZOLE 40 MG VIAL IV SCH (08:30)
[2017-12-30] MEDS: MEGESTROL ACETATE 40 MG TABLET PO SCH (08:30)
[2017-12-30] MEDS: BOOST PLUS FOOD-CHOCLATE 237 ML BOX PO SCH ×3 (08:30→17:17)
[2017-12-30] MEDS: DIVALPROEX SODIUM 125 MG TABLET.DR PO SCH ×3 (08:30→22:05)
[2017-12-30] MEDS: CLOTRIMAZOLE 1% 15 GM TUBE TP SCH ×2 (08:33→17:17)
[2017-12-30] MEDS: TIMOLOL MAL/DORZOLAM HCL OPHTH 10 ML BOTTLE LEFTEYE SCH ×2 (08:34→22:06)
[2017-12-30] MEDS: BRIMONIDINE TARTRATE OPHT SOLN 5 ML BOTTLE LEFTEYE SCH ×3 (08:34→17:18)
[2017-12-30] MEDS: LORAZEPAM 1 MG TABLET PO PRN (10:21)
--- NOTE | 2017-12-30 12:45 | NUR ---
STACY COPPOLA, ON FLOOR. RUNNING RIGGER CALLED PT SON, MARINA, TO OBTAIN CONSENT FOR PEG PLACEMENT. ABDON AND I WITNESSED PHONE CONSENT FOR PEG PLACEMENT, ANGELA, AND BLOOD TRANSFUSION IF NEEDED. CONSENT FORMS SIGNED BY RUNNING RIGGER AND RN.
--- NOTE | 2017-12-30 12:50 | NUR ---
PER NINO COPPOLA TO RENEW SOFT RESTRAINTS IF NEEDED FOR THE PATIENT.
--- NOTE | 2017-12-30 14:07 | NUR ---
CALLED PHARMACY AND ASKED TO HAVE IV IRON SENT. PHARMACY TO SEND MEDICATION.
[2017-12-30] MEDS: SOD FERRIC GLUC 125 MG in IV NS 0.9% 100 ML IV SCH (15:39)
[2017-12-30 16:00] VITALS: BP 117/73
--- NOTE | 2017-12-30 19:30 | NUR ---
MS RN NOTE RECEIVED PATIENT AWAKE IN BED. CONFUSED, BUT RESTING COMFORTABLY. NO S/S OF PAIN OR DISCOMFORT. IV SITE INTACT WITH NO REDNESS OR INFILTRATION NOTED. FLUIDS RUNNING ORDERED. SAFETY MEASURES IN PLACE. BED LOCKED IN LOWEST POSITION. SIDE RAILS UP, CALL LIGHT WITHIN REACH. WILL CONTINUE TO MONITOR.
[2017-12-30 20:00] VITALS: BP 113/72
[2017-12-30 21:57] VITALS: BP 113/72
[2017-12-30] MEDS: MIRTAZAPINE SOLUTAB 15 MG/UDTABLET TAB.RAPDIS PO SCH (22:06)
[2017-12-31] MEDS: BACITRACIN RIGHTEYE SCH ×7 (01:24→21:13)
[2017-12-31] MEDS: POLY B RIGHTEYE SCH ×7 (01:24→21:13)
--- NOTE | 2017-12-31 06:09 | NUR ---
MS RN NOTE PATIENT SLEEPING AT THIS TIME. ALL NEEDS MET AND ATTENDED TO. PATIENT WAS MOSTLY CALM THROUGH THE NIGHT, WITH A COUPLE OF OUTBURSTS. PATIENT HAS BEEN NPO SINCE MIDNIGHT FOR PEG PLACEMENT TODAY.
[2017-12-31 06:42] LABS: CALCIUM, SERUM 9.2 mg/dL (8.5-10.1); CREATININE 0.8 mg/dL (0.6-1.3); POTASSIUM 3.9 mmol/L (3.5-5.1)
--- NOTE | 2017-12-31 07:05 | NUR ---
REPORT RECEIVED AT THE BEDSIDE. PATIENT IS SLEEPING. NO SOB OR DISTRESS. CALLED SURGERY TO DETERMINE WHEN PEG PLACEMENT WILL OCCUR. SURGERY STATES THAT THE PATIENT IS NOT ON SCHEDULE AT THIS TIME. WILL KEEP PT NPO FOR NOW AND CONTACT MD WHEN ABLE. BED IN A LOW POSITION, CALL LIGHT WITHIN REACH.
[2017-12-31] MEDS: BOOST PLUS FOOD-CHOCLATE 237 ML BOX PO SCH ×3 (07:20→17:29)
[2017-12-31 08:00] VITALS: BP 115/53
--- NOTE | 2017-12-31 08:20 | NUR ---
CALLED DR ORTEGA TO CLARIFY PT PEG PLACEMENT SCHEDULE. STATES THAT HE COULD NOT GET AN OR FOR THIS MORNING AND MUST DO THE PROCEDURE TOMORROW, MONDAY 01/01. STATES TO LET THE PATIENT EAT TODAY AND PLACE HIM NPO POST MIDNIGHT TONIGHT. INFORMED ABDON ROGERS OF SCHEDULING WELL.
[2017-12-31] MEDS: OLANZAPINE 2.5 MG TABLET PO SCH ×4 (08:42→21:10)
[2017-12-31] MEDS: DIVALPROEX SODIUM 125 MG TABLET.DR PO SCH ×3 (08:42→21:10)
[2017-12-31] MEDS: PANTOPRAZOLE 40 MG VIAL IV SCH (08:42)
[2017-12-31] MEDS: MEGESTROL ACETATE 40 MG TABLET PO SCH (08:42)
[2017-12-31] MEDS: CLOTRIMAZOLE 1% 15 GM TUBE TP SCH ×2 (08:47→17:28)
[2017-12-31] MEDS: TIMOLOL MAL/DORZOLAM HCL OPHTH 10 ML BOTTLE LEFTEYE SCH ×2 (08:48→21:11)
[2017-12-31] MEDS: BRIMONIDINE TARTRATE OPHT SOLN 5 ML BOTTLE LEFTEYE SCH ×3 (08:48→17:28)
[2017-12-31] MEDS: LORAZEPAM 1 MG TABLET PO PRN (14:25)
[2017-12-31] MEDS: HYDROCODONE/APAP 5/325MG 1 EACH TABLET PO PRN (14:56)
[2017-12-31 16:00] VITALS: BP_SYST 122; BP_SYST 127; BP_DIAS 76; BP_DIAS 87
[2017-12-31] MEDS: MIRTAZAPINE SOLUTAB 15 MG/UDTABLET TAB.RAPDIS PO SCH (21:10)
[2017-12-31 21:51] VITALS: BP 149/79
[2018-01-01 04:56] LABS: EOSINOPHILS % (AUTO) 0.1 % (0.0-6.0); HEMATOCRIT 42 % (39-51); HEMOGLOBIN 14.2 g/dL (13.5-17.5); LYMPHOCYTES % (AUTO) 8.1 % (20.0-44.0); MEAN CORPUSCULAR HEMOGLOBIN 30 PG (26.0-33.0); MEAN CORPUSCULAR HGB CONC 34 g/dl (31.0-36.0); MEAN CORPUSCULAR VOLUME 88 fL (80-96); MONOCYTES # (AUTO) 0.5 /CMM (0.1-1.30); MONOCYTES % (AUTO) 4.5 % (2.0-12.0); NEUTROPHILS # (AUTO) 10.4 /CMM (1.8-8.9); NEUTROPHILS % (AUTO) 87.3 % (43.0-81.0); PLATELET COUNT (AUTO) 286 /CMM (150-450); RDW COEFFICIENT OF VARIATION 13.6 (11.5-15.0); RED BLOOD CELL COUNT(AUTO) 4.76 MIL/uL (4.5-6.0); WHITE BLOOD COUNT (AUTO) 11.9 K/uL (4.3-11.0)
[2018-01-01 05:11] LABS: INR 0.98 (0.87-1.13)
[2018-01-01 08:00] VITALS: BP 106/54
[2018-01-01] MEDS: BOOST PLUS FOOD-CHOCLATE 237 ML BOX PO SCH ×3 (08:00→18:00)
[2018-01-01] MEDS: DIVALPROEX SODIUM 125 MG TABLET.DR PO SCH (08:00)
--- NOTE | 2018-01-01 08:15 | NUR ---
MS RN NOTES PATIENT TRANSFERRED TO OR FOR SCHEDULED PEG PLACEMENT. PATIENT IN STABLE CONDITION. PERIPHERAL IV INTACT PATENT. VS WNL.
[2018-01-01] MEDS: BACITRACIN RIGHTEYE SCH ×5 (08:30→23:49)
[2018-01-01] MEDS: POLY B RIGHTEYE SCH ×5 (08:30→23:49)
[2018-01-01] MEDS: MEGESTROL ACETATE 40 MG TABLET PO SCH (09:00)
[2018-01-01] MEDS: OLANZAPINE 2.5 MG TABLET PO SCH ×2 (09:00→12:59)
[2018-01-01] MEDS: TIMOLOL MAL/DORZOLAM HCL OPHTH 10 ML BOTTLE LEFTEYE SCH ×2 (09:26→20:01)
[2018-01-01] MEDS: BRIMONIDINE TARTRATE OPHT SOLN 5 ML BOTTLE LEFTEYE SCH ×3 (09:26→17:22)
[2018-01-01] MEDS: CLOTRIMAZOLE 1% 15 GM TUBE TP SCH ×2 (09:27→17:22)
[2018-01-01] MEDS: PANTOPRAZOLE 40 MG VIAL IV SCH (09:27)
--- NOTE | 2018-01-01 09:30 | NUR ---
MS RN NOTES PATIENT RETURNED FROM OR IN STABLE CONDITION. PATIENT ALERT,ORIENTED X1 CONFUSED. WILL CONTINUE TO MONITOR.
[2018-01-01] MEDS: IV D5/0.45 NACL 1,000 ML IV PRN (09:36)
[2018-01-01] MEDS: FIBERSOURCE HN 1,000 ML BOTTLE GT PRN (14:54)
[2018-01-01 16:00] VITALS: BP 113/61
[2018-01-01] MEDS ORDERED: HYDROCODONE/APAP 5/325MG 1 EACH TABLET GT PRN (16:49)
[2018-01-01] MEDS ORDERED: MAG HYDROX/AL HYDROX/SIMETH 30 ML UDC GT PRN (16:50)
[2018-01-01] MEDS ORDERED: MAGNESIUM HYDROXIDE 30 ML UDC GT PRN (16:51)
[2018-01-01] MEDS ORDERED: TEMAZEPAM 7.5 MG CAPSULE GT PRN (16:54)
[2018-01-01] MEDS ORDERED: ACETAMINOPHEN LIQUID 325 MG/10.1 ML UDC GT PRN (17:00)
[2018-01-01] MEDS ORDERED: DIVALPROEX SODIUM 125 MG CAP.SPRINK GT SCH (17:00)
[2018-01-01] MEDS: DIVALPROEX SODIUM 125 MG CAP.SPRINK GT SCH ×2 (17:21→20:02)
[2018-01-01] MEDS: OLANZAPINE 2.5 MG TABLET GT SCH ×2 (17:21→21:38)
--- NOTE | 2018-01-01 18:36 | NUR ---
MS RN NOTES PATIENT IN BED RESTING NO SOB OR ACUTE DISTRESS NOTED. ALL DUE MEDICATIONS ADMINISTERED. ALL NEEDS MET. PERIPHERAL IV INTACT PATENT ON RIGHT UPPER ARM. WILL ENDORSE CARE TO PM SHIFT.
--- NOTE | 2018-01-01 19:30 | NUR ---
RN NOTES RECEIVED PATIENT IN BED AWAKE, AO X 1, RESPONSIVE TO VOICE AND TOUCH. NO ACUTE DISTRESS NOTED. NO SIGNS OF PAIN NOTED. IV SITE PATENT, INTACT; IVF INFUSING ORDERED. GT PATENT, INTACT; IN PLACE VIA AUSCULTATION. GTF ONGOING ORDERED. PATIENT TOLERATING GTF WELL; NO RESIDUAL NOTED. ON LOW BED WITH BILATERAL UPPER SIDE RAILS UP. SITTER AT BEDSIDE. WILL CONTINUE TO MONITOR.
[2018-01-01 20:00] VITALS: BP 149/79
[2018-01-01] MEDS: MIRTAZAPINE SOLUTAB 15 MG/UDTABLET TAB.RAPDIS GT SCH (21:38)
[2018-01-02] MEDS: IV D5/0.45 NACL 1,000 ML IV PRN ×2 (02:58→20:37)
[2018-01-02] MEDS: POLY B RIGHTEYE SCH ×5 (05:18→20:31)
[2018-01-02] MEDS: BACITRACIN RIGHTEYE SCH ×5 (05:18→20:31)
--- NOTE | 2018-01-02 06:06 | NUR ---
RN NOTES PATIENT ASLEEP, EASILY AROUSABLE. RESPIRATIONS EVEN. NO SIGNS OF PAIN NOTED. DUE MEDS GIVEN WITH NO ASE NOTED. IVF INFUSING ORDERED. NEEDS ATTENDED. SAFETY PRECAUTIONS AND COMFORT MEASURES IN PLACE. WILL GIVE REPORT TO DAY SHIFT FOR CONTINUITY OF CARE.
[2018-01-02 06:44] LABS: BASOPHILS % (AUTO) 0.2 % (0.0-2.0); EOSINOPHILS # (AUTO) 0.1 /CMM (0.0-0.7); EOSINOPHILS % (AUTO) 0.9 % (0.0-6.0); HEMATOCRIT 39 % (39-51); HEMOGLOBIN 13.3 g/dL (13.5-17.5); LYMPHOCYTES # (AUTO) 1.6 /CMM (0.8-4.8); LYMPHOCYTES % (AUTO) 12.4 % (20.0-44.0); MEAN CORPUSCULAR HEMOGLOBIN 30 PG (26.0-33.0); MEAN CORPUSCULAR HGB CONC 34 g/dl (31.0-36.0); MEAN CORPUSCULAR VOLUME 89 fL (80-96); MONOCYTES # (AUTO) 1.1 /CMM (0.1-1.30); MONOCYTES % (AUTO) 8.2 % (2.0-12.0); NEUTROPHILS # (AUTO) 10.1 /CMM (1.8-8.9); NEUTROPHILS % (AUTO) 78.3 % (43.0-81.0); PLATELET COUNT (AUTO) 295 /CMM (150-450); RED BLOOD CELL COUNT(AUTO) 4.38 MIL/uL (4.5-6.0); WHITE BLOOD COUNT (AUTO) 12.9 K/uL (4.3-11.0)
--- NOTE | 2018-01-02 07:35 | NUR ---
RN OPENING NOTES RECEIVED PT. PT IS STABLE AND IN BED. PT IS CONFUSED R/T DEMENTIA. NO S/S OF RESP DISTRESS OR SOB. PT DOES NOT APPEAR TO BE IN PAIN AT THIS TIME. IV ACCESS LOCATED ON VITO 22G INFUSING D5 1/2 NS AT 75 ML/HR. GT FEEDING OF FIBERSOURCE IN PLACE, AT RATE OF 30 ML/HR WITH INSTRUCTIONS TO TITRATE ONCE PER SHIFT IF TOLERATING FEEDING UNTIL 65 ML/HR. SAFETY MEASURES IN PLACE, CALL LIGHT WITHIN REACH, WILL CONTINUE TO MONITOR.
[2018-01-02] MEDS: PANTOPRAZOLE 40 MG VIAL IV SCH (08:15)
[2018-01-02] MEDS: MEGESTROL ACETATE 40 MG TABLET GT SCH (08:15)
[2018-01-02] MEDS: OLANZAPINE 2.5 MG TABLET GT SCH ×4 (08:15→21:23)
[2018-01-02] MEDS: DIVALPROEX SODIUM 125 MG CAP.SPRINK GT SCH ×3 (08:15→20:31)
[2018-01-02] MEDS: TIMOLOL MAL/DORZOLAM HCL OPHTH 10 ML BOTTLE LEFTEYE SCH ×2 (08:16→20:32)
[2018-01-02 08:17] LABS: CREATININE 0.8 mg/dL (0.6-1.3); MAGNESIUM 2.1 mg/dL (1.8-2.4); PHOSPHORUS 2.7 mg/dL (2.5-4.9); POTASSIUM 3.7 mmol/L (3.5-5.1)
[2018-01-02] MEDS: CLOTRIMAZOLE 1% 15 GM TUBE TP SCH ×2 (08:17→17:20)
[2018-01-02] MEDS: BOOST PLUS FOOD-CHOCLATE 237 ML BOX PO SCH ×3 (08:17→17:20)
[2018-01-02] MEDS: BRIMONIDINE TARTRATE OPHT SOLN 5 ML BOTTLE LEFTEYE SCH ×3 (08:17→17:20)
[2018-01-02 09:00] VITALS: BP 135/76
[2018-01-02] MEDS: LORAZEPAM 1 MG TABLET GT PRN (11:57)
[2018-01-02 12:58] LABS: OCCULT BLOOD STOOL NEGATIVE (NEGATIVE)
--- NOTE | 2018-01-02 19:04 | NUR ---
RN CLOSING NOTES PT IN BED RESTING. NO S/S OF RESP DISTRESS OR SOB. TUBE FEEDING ADVANCED TO 45 ML/HR. MINIMAL RESIDUAL THROUGHOUT SHIFT OF LESS THAN 10CC. ALL PT NEEDS ANTICIPATED AND MET. SAFETY MEASURES IN PLACE, CALL LIGHT WITHIN REACH. WILL ENDORSE TO FISCAL ACCOUNTING CLERK FOR KELLY.
[2018-01-02 20:00] VITALS: BP_SYST 128; BP_SYST 142; BP_DIAS 69; BP_DIAS 75
[2018-01-02] MEDS: FIBERSOURCE HN 1,000 ML BOTTLE GT PRN (20:36)
[2018-01-02] MEDS: MIRTAZAPINE SOLUTAB 15 MG/UDTABLET TAB.RAPDIS GT SCH (21:23)
[2018-01-03] MEDS: POLY B RIGHTEYE SCH ×6 (00:11→21:10)
[2018-01-03] MEDS: BACITRACIN RIGHTEYE SCH ×6 (00:11→21:10)
--- NOTE | 2018-01-03 06:35 | NUR ---
RN NOTES PATIENT ASLEEP, EASILY AROUSABLE. RESPIRATIONS EVEN. NO SIGNS OF PAIN NOTED. DUE MEDS GIVEN WITH NO ASE NOTED. IVF INFUSING ORDERED. PATIENT TOLERATING GTF; HOB RAISED; ASPIRATION PRECAUTION MAINTAINED. NEEDS ATTENDED. KEPT CLEAN, DRY, AND COMFORTABLE. SAFETY PRECAUTIONS AND COMFORT MEASURES IN PLACE. WILL GIVE REPORT TO DAY SHIFT FOR CONTINUITY OF CARE.
[2018-01-03 08:00] VITALS: BP 123/67
--- NOTE | 2018-01-03 08:00 | NUR ---
RN NOTES PATIENT ASLEEP, EASILY AROUSABLE. RESPIRATIONS EVEN AND UNLABORED. NO S/SX OF PAIN NOTED. IVF INFUSING ORDERED. PATIENT TOLERATING GTF, NO RESIDUAL AT THIS TIME, INCREASED GTF TO 50CC/HR; HOB ELEVATED, ASPIRATION PRECAUTION MAINTAINED. NEEDS ATTENDED. KEPT COMFORTABLE. SAFETY PRECAUTIONS AND COMFORT MEASURES IN PLACE. CALL LIGHT WITHIN REACH, WILL CONTINUE TO MONITOR.
[2018-01-03 08:03] LABS: BASOPHILS % (AUTO) 0.2 % (0.0-2.0); EOSINOPHILS # (AUTO) 0.1 /CMM (0.0-0.7); EOSINOPHILS % (AUTO) 1.1 % (0.0-6.0); HEMATOCRIT 38 % (39-51); HEMOGLOBIN 12.9 g/dL (13.5-17.5); LYMPHOCYTES # (AUTO) 1.6 /CMM (0.8-4.8); LYMPHOCYTES % (AUTO) 12.4 % (20.0-44.0); MEAN CORPUSCULAR HEMOGLOBIN 30 PG (26.0-33.0); MEAN CORPUSCULAR HGB CONC 34 g/dl (31.0-36.0); MEAN CORPUSCULAR VOLUME 88 fL (80-96); MONOCYTES # (AUTO) 1.2 /CMM (0.1-1.30); MONOCYTES % (AUTO) 9.6 % (2.0-12.0); NEUTROPHILS # (AUTO) 9.9 /CMM (1.8-8.9); NEUTROPHILS % (AUTO) 76.7 % (43.0-81.0); PLATELET COUNT (AUTO) 298 /CMM (150-450); RDW COEFFICIENT OF VARIATION 14.5 (11.5-15.0); RED BLOOD CELL COUNT(AUTO) 4.27 MIL/uL (4.5-6.0); WHITE BLOOD COUNT (AUTO) 12.9 K/uL (4.3-11.0)
[2018-01-03] MEDS: DIVALPROEX SODIUM 125 MG CAP.SPRINK GT SCH ×3 (08:17→21:10)
[2018-01-03] MEDS: PANTOPRAZOLE 40 MG VIAL IV SCH (08:17)
[2018-01-03] MEDS: OLANZAPINE 2.5 MG TABLET GT SCH ×4 (08:17→21:11)
[2018-01-03] MEDS: MEGESTROL ACETATE 40 MG TABLET GT SCH (08:17)
[2018-01-03] MEDS: TIMOLOL MAL/DORZOLAM HCL OPHTH 10 ML BOTTLE LEFTEYE SCH ×2 (08:18→21:12)
[2018-01-03] MEDS: BOOST PLUS FOOD-CHOCLATE 237 ML BOX PO SCH ×3 (08:18→17:26)
[2018-01-03 08:19] LABS: CALCIUM, SERUM 8.8 mg/dL (8.5-10.1); CREATININE 0.8 mg/dL (0.6-1.3); MAGNESIUM 2.2 mg/dL (1.8-2.4); PHOSPHORUS 2.8 mg/dL (2.5-4.9); POTASSIUM 3.5 mmol/L (3.5-5.1)
[2018-01-03] MEDS: BRIMONIDINE TARTRATE OPHT SOLN 5 ML BOTTLE LEFTEYE SCH ×3 (08:19→17:25)
[2018-01-03] MEDS: CLOTRIMAZOLE 1% 15 GM TUBE TP SCH ×2 (08:19→17:25)
[2018-01-03] MEDS ORDERED: BACI3.5O5 RIGHTEYE (09:33)
[2018-01-03] MEDS ORDERED: MAG30ORA GT (09:33)
[2018-01-03] MEDS ORDERED: TEMA7.5C GT (09:33)
[2018-01-03] MEDS ORDERED: MIRT15TA3 GT (09:33)
[2018-01-03] MEDS ORDERED: DIVA125C GT (09:33)
[2018-01-03] MEDS ORDERED: CLOT15CR35 TP (09:33)
[2018-01-03] MEDS ORDERED: Boost Plus Food-Choclate PO (09:33)
[2018-01-03] MEDS ORDERED: ACET160S2 GT (09:33)
[2018-01-03] MEDS ORDERED: LORA1TAB GT (09:33)
[2018-01-03] MEDS ORDERED: ALLA266C2 TP (09:33)
[2018-01-03] MEDS ORDERED: Fibersource Hn GT (09:33)
[2018-01-03] MEDS ORDERED: OLAN2.5T3 GT ×2 (09:33)
[2018-01-03] MEDS ORDERED: DORZ10DR13 LEFTEYE (09:33)
[2018-01-03] MEDS ORDERED: BRIM5DRO5 LEFTEYE (09:33)
[2018-01-03] MEDS ORDERED: HYDR-3972 GT (09:33)
--- NOTE | 2018-01-03 14:00 | NUR ---
RN NOTES PER NEGATIVE RESTORER, GISSEL GARZA WILL ACCEPT THE PATIENT TOMORROW. INFORMED DR. FREDERICK. DISCHARGE ON HOLD. PATIENT ASLEEP IN BED, PATIENT HAS HAD 2 B, SOFT BROWN. NO FOUL ODOR. SKIN CARE RENDERED, WOUND TREATMENT RENDERED, TURNED AND REPOSITIONED EVERY 2 HOURS, ALL NEEDS ATTENDED AND MET, CALL LIGHT WITHIN REACH, WILL CONTINUE TO MONITOR.
[2018-01-03] MEDS: IV D5/0.45 NACL 1,000 ML IV PRN (15:30)
[2018-01-03 16:00] VITALS: BP 117/83
--- NOTE | 2018-01-03 18:52 | NUR ---
RN NOTES PATIENT A/OX1, BREATHING EVEN AND UNLABORED, NO SOB NOTED, HOB RAISED FOR SAFETY PRECAUTION, ON FIBERSOURCE AT 50ML/HR WITH RESIDUAL OF 50CC. PATIENT TOLERATING GT FEEDING WELL, ALL DUE MEDICATIONS GIVEN ORDERED. SKIN CARE RENDERED, TURNED AND REPOSITIONED EVERY 2 HOURS. ALL NEEDS ATTENDED AND MET, CALL LIGHT WITHIN REACH, WILL ENDORSE TO REFUELING RAMP ATTENDANT FOR KELLY.
[2018-01-03 20:00] VITALS: BP 110/64
[2018-01-03] MEDS: MIRTAZAPINE SOLUTAB 15 MG/UDTABLET TAB.RAPDIS GT SCH (21:11)
[2018-01-03] MEDS: LORAZEPAM 1 MG TABLET GT PRN (22:48)
--- NOTE | 2018-01-03 22:48 | NUR ---
ATIVAN 1MG GIVEN FOR ANXIETY AND CONSTANT ATTEMPT TO GET OUT OF BED. WILL CONT TO MONITOR ,
[2018-01-04] MEDS: POLY B RIGHTEYE SCH ×3 (00:29→08:35)
[2018-01-04] MEDS: FIBERSOURCE HN 1,000 ML BOTTLE GT PRN (00:29)
[2018-01-04] MEDS: BACITRACIN RIGHTEYE SCH ×3 (00:29→08:35)
--- NOTE | 2018-01-04 07:20 | NUR ---
PT IN BED BREATHING EVENLY. NO SOB. NO ACUTE EVENT DURING THE NIGHT. REMAINED CONFUSED W/ CONSTANT ATTEMPT TO GET OUT OF BED. LOOM FIXER REPORTED EPISODES OF DIARRHEA WHICH MIGHT BE AN INDICATION OF GTF INTOLERANCE. ENDORSED TO AM SHIFT FOR F/U W/ MD. ALSO NOTED W/ A SMALL SCRATCH/ SKIN TEAR ON L ELBOW W/ NO BLEEDING. GOOD SKIN CARE RENDERED. WILL REFER TO WOUND CARE. NEEDS ATTENDED. CALL LIGHT WITHIN REACH . REPORT GIVEN TO NYA FOR KELLY.
[2018-01-04 07:54] VITALS: BP 100/58
[2018-01-04 08:00] VITALS: BP 100/58
[2018-01-04] MEDS: BOOST PLUS FOOD-CHOCLATE 237 ML BOX PO SCH (08:00)
[2018-01-04] MEDS: PANTOPRAZOLE 40 MG VIAL IV SCH (08:33)
[2018-01-04] MEDS: MEGESTROL ACETATE 40 MG TABLET GT SCH (08:33)
[2018-01-04] MEDS: DIVALPROEX SODIUM 125 MG CAP.SPRINK GT SCH (08:34)
[2018-01-04] MEDS: OLANZAPINE 2.5 MG TABLET GT SCH (08:34)
[2018-01-04] MEDS: TIMOLOL MAL/DORZOLAM HCL OPHTH 10 ML BOTTLE LEFTEYE SCH (08:36)
[2018-01-04] MEDS: BRIMONIDINE TARTRATE OPHT SOLN 5 ML BOTTLE LEFTEYE SCH (08:40)
[2018-01-04] MEDS: CLOTRIMAZOLE 1% 15 GM TUBE TP SCH (08:40)
--- NOTE | 2018-01-04 14:00 | NUR ---
MS/RN Heplock Heplock and name bands removed.
--- NOTE | 2018-01-04 15:30 | NUR ---
MS/notary public Patient discharged to SNF in stable condition. Report called to Daysi at facility. Paramedics provided with copy of medical record and exit care. All personal property with patient.
== END 2018-01-04 15:30 | DRG 640 ==
LOC: ER 16:32 → MEDSG2 18:22
PROVIDERS: ADMIT Internal Medicine; ATTEND Internal Medicine
PROC: 0DH63UZ Insertion of Feeding Device into Stomach, Percutaneous Approach (ICD-10-PCS; principal; 2018-01-01 10:20)
PROC: 3E0G76Z Introduction of Nutritional Substance into Upper GI, Via Natural or Artificial Opening (ICD-10-PCS; 2018-01-01 10:20)
DX: R62.7 Adult failure to thrive (principal); E43 Unspecified severe protein-calorie malnutrition; F03.91 Unspecified dementia, unspecified severity, with behavioral disturbance; R13.10 Dysphagia, unspecified; R64 Cachexia; D64.9 Anemia, unspecified; F20.0 Paranoid schizophrenia; F05 Delirium due to known physiological condition; E78.5 Hyperlipidemia, unspecified; I10 Essential (primary) hypertension; F29 Unspecified psychosis not due to a substance or known physiological condition; H54.7 Unspecified visual loss; F41.9 Anxiety disorder, unspecified; Z79.82 Long term (current) use of aspirin; Z79.899 Other long term (current) drug therapy; L30.4 Erythema intertrigo; Z66 Do not resuscitate; L98.9 Disorder of the skin and subcutaneous tissue, unspecified; H10.9 Unspecified conjunctivitis; D50.9 Iron deficiency anemia, unspecified
CPT/HCPCS: 36415; 43246; 70450-TC; 71045-TC; 80048-TC; 80053-TC; 80061-TC; 80076-TC; 81000-TC; 82272-TC; 83540-TC; 83690-TC; 83735-TC; 84100-TC; 84134-TC; 85025-TC; 85610-TC; 85730-TC; 86850-TC; 87081-TC; 87086-TC; 92611-TC; 97116-TC; 97164; 97530-TC; A4606; C9113; J2704; J2916; J3490; J7030; Z7610

== ENCOUNTER 2018-01-30 18:46 | Inpatient (IN) | payer MEDICARE, OTHER ==
[~2018-01-30] VITALS: Ht 165.1 cm; Wt 65.8 kg
[~2018-01-30 18:46] MED LIST changes: -ACET-868 PO; +ACET160S2 GT; +ALLA266C2 TP; -ASPI-1169 PO; -ATOR40TA PO; +BACI3.5O5 RIGHTEYE; +BRIM5DRO5 LEFTEYE; +Boost Plus Food-Choclate PO; +CLOT15CR35 TP; +DIVA125C GT; +DORZ10DR13 LEFTEYE; +Fibersource Hn GT; +HYDR-3972 GT; +LORA1TAB GT; +MAG30ORA GT; -MAG30ORA PO; -MAGN400O6 PO; -METO25TA20 PO; +MIRT15TA3 GT; +OLAN2.5T3 GT; -SENN1TAB33 PO; +TEMA7.5C GT; -[UNRECOGNIZED DRUG - CODE] IV
[2018-01-30] MEDS ORDERED: WATER FOR INJECTION,STERILE 0 ML ONE (18:57)
[2018-01-30] MEDS ORDERED: TIMO10DR19 LEFTEYE (19:19)
[2018-01-30] MEDS ORDERED: MELA3TAB GT (19:19)
[2018-01-30] MEDS ORDERED: METO25TA20 GT (19:19)
[2018-01-30] MEDS ORDERED: ATOR40TA GT (19:19)
[2018-01-30] MEDS ORDERED: BRIM5DRO LEFTEYE (19:19)
[2018-01-30] MEDS ORDERED: ASPI-1169 GT (19:19)
[2018-01-30] MEDS ORDERED: LACT-96 GT (19:19)
[2018-01-30 19:57] LABS: BASOPHILS # (AUTO) 0.5 /CMM (0.0-0.2); BASOPHILS % (AUTO) 3.8 % (0.0-2.0); EOSINOPHILS # (AUTO) 0.1 /CMM (0.0-0.7); EOSINOPHILS % (AUTO) 0.7 % (0.0-6.0); HEMATOCRIT 38 % (39-51); HEMOGLOBIN 12.9 g/dL (13.5-17.5); LYMPHOCYTES # (AUTO) 1.5 /CMM (0.8-4.8); LYMPHOCYTES % (AUTO) 11.3 % (20.0-44.0); MEAN CORPUSCULAR HEMOGLOBIN 30 PG (26.0-33.0); MEAN CORPUSCULAR HGB CONC 34 g/dl (31.0-36.0); MEAN CORPUSCULAR VOLUME 88 fL (80-96); MONOCYTES % (AUTO) 7.5 % (2.0-12.0); NEUTROPHILS # (AUTO) 10.5 /CMM (1.8-8.9); NEUTROPHILS % (AUTO) 76.7 % (43.0-81.0); PLATELET COUNT (AUTO) 296 /CMM (150-450); RDW COEFFICIENT OF VARIATION 12.9 (11.5-15.0); RED BLOOD CELL COUNT(AUTO) 4.36 MIL/uL (4.5-6.0); WHITE BLOOD COUNT (AUTO) 13.6 K/uL (4.3-11.0)
[2018-01-30 20:05] LABS: CALCIUM, SERUM 9.6 mg/dL (8.5-10.1); CREATININE 0.9 mg/dL (0.6-1.3); POTASSIUM 4.3 mmol/L (3.5-5.1)
[2018-01-30 20:09] LABS: INR 0.98 (0.85-1.15)
[2018-01-30 20:30] VITALS: BP 121/52
[2018-01-30] MEDS ORDERED: ACETAMINOPHEN 650 MG/SUPP.RECT RC PRN (20:30)
[2018-01-30] MEDS ORDERED: ONDANSETRON HCL/PF 4 MG/2 ML VIAL IVP PRN (20:30)
[2018-01-30 21:00] VITALS: BP 119/49
[2018-01-30] MEDS: IV D5/ 0.9% NACL 1,000 ML IV PRN (22:24)
[2018-01-30 22:45] LABS: BAND % (MANUAL) 1 % (0.0-5.0); LYMPHOCYTES % (MANUAL) 10 % (16-48); MONOCYTES % (MANUAL) 10 % (0-11.0); NEUTROPHILS % (MANUAL) 79 (42-76)
[2018-01-30] MEDS ORDERED: CEFTRIAXONE 1 G VIAL ONE (23:00)
[2018-01-30] MEDS: CEFTRIAXONE 1 G in IV D5W 50 ML IV SCH (23:07)
[2018-01-31] MEDS ORDERED: AZITHROMYCIN 500 MG VIAL ONE (01:46)
[2018-01-31] MEDS: AZITHROMYCIN 500 MG in IV D5W 250 ML IV SCH (02:34)
[2018-01-31 06:23] LABS: BASOPHILS % (AUTO) 0.1 % (0.0-2.0); EOSINOPHILS # (AUTO) 0.1 /CMM (0.0-0.7); EOSINOPHILS % (AUTO) 0.6 % (0.0-6.0); HEMATOCRIT 35 % (39-51); HEMOGLOBIN 11.6 g/dL (13.5-17.5); LYMPHOCYTES # (AUTO) 1.6 /CMM (0.8-4.8); MEAN CORPUSCULAR HEMOGLOBIN 29 PG (26.0-33.0); MEAN CORPUSCULAR HGB CONC 33 g/dl (31.0-36.0); MEAN CORPUSCULAR VOLUME 89 fL (80-96); MONOCYTES # (AUTO) 1.3 /CMM (0.1-1.30); MONOCYTES % (AUTO) 10.3 % (2.0-12.0); NEUTROPHILS # (AUTO) 9.9 /CMM (1.8-8.9); PLATELET COUNT (AUTO) 236 /CMM (150-450); RDW COEFFICIENT OF VARIATION 13.8 (11.5-15.0); RED BLOOD CELL COUNT(AUTO) 3.95 MIL/uL (4.5-6.0); WHITE BLOOD COUNT (AUTO) 12.9 K/uL (4.3-11.0)
[2018-01-31 06:28] LABS: APPEARANCE,URINE SL CLOUDY (CLEAR); BILIRUBIN,URINE NEGATIVE (NEGATIVE); BLOOD, URINE NEGATIVE Ery/uL (NEGATIVE); COLOR,URINE YELLOW (YELLOW); KETONES,URINE NEGATIVE (NEGATIVE); LEUKOCYTE ESTERASE ,URINE NEGATIVE (NEGATIVE); NITRITE, URINE POSITIVE (NEGATIVE); PH,URINE 8.5 (5.0-8.0); PROTEIN,URINE NEGATIVE (NEGATIVE); UGLUCOSE NEGATIVE (NEGATIVE)
[2018-01-31 06:37] LABS: BACTERIA,URINE Few /HPF (None Seen); RBC,URINE 0-2 /HPF (0-2); SQUAMOUS EPITHELIAL CELL,UR Rare /HPF (None Seen)
[2018-01-31 06:43] LABS: CALCIUM, SERUM 8.7 mg/dL (8.5-10.1); CREATININE 0.8 mg/dL (0.6-1.3); MAGNESIUM 2.1 mg/dL (1.8-2.4); PHOSPHORUS 2.9 mg/dL (2.5-4.9); POTASSIUM 3.5 mmol/L (3.5-5.1)
[2018-01-31] MEDS: PANTOPRAZOLE 40 MG VIAL IV SCH (08:25)
[2018-01-31] MEDS: IV D5/ 0.9% NACL 1,000 ML IV PRN (15:14)
[2018-01-31] MEDS: LORAZEPAM INJ 2 MG/ML VIAL IV PRN (16:34)
[2018-01-31 17:31] LABS: IRON, SERUM 13 ug/dl (50-175); TOTAL IRON BINDING CAPACITY 204 ug/dl (250-450)
[2018-01-31 20:00] VITALS: BP 139/65
[2018-01-31 21:07] LABS: OCCULT BLOOD STOOL NEGATIVE (NEGATIVE)
[2018-01-31] MEDS: CEFTRIAXONE 1 G in IV D5W 50 ML IV SCH (22:18)
[2018-02-01] MEDS: AZITHROMYCIN 500 MG in IV D5W 250 ML IV SCH (02:42)
[2018-02-01 07:33] LABS: BASOPHILS % (AUTO) 0.3 % (0.0-2.0); EOSINOPHILS # (AUTO) 0.1 /CMM (0.0-0.7); EOSINOPHILS % (AUTO) 1.8 % (0.0-6.0); HEMATOCRIT 35 % (39-51); HEMOGLOBIN 11.8 g/dL (13.5-17.5); LYMPHOCYTES # (AUTO) 1.1 /CMM (0.8-4.8); LYMPHOCYTES % (AUTO) 13.2 % (20.0-44.0); MEAN CORPUSCULAR HEMOGLOBIN 29 PG (26.0-33.0); MEAN CORPUSCULAR HGB CONC 33 g/dl (31.0-36.0); MEAN CORPUSCULAR VOLUME 88 fL (80-96); MONOCYTES # (AUTO) 0.5 /CMM (0.1-1.30); MONOCYTES % (AUTO) 6.2 % (2.0-12.0); NEUTROPHILS # (AUTO) 6.4 /CMM (1.8-8.9); NEUTROPHILS % (AUTO) 78.5 % (43.0-81.0); PLATELET COUNT (AUTO) 244 /CMM (150-450); RDW COEFFICIENT OF VARIATION 13.8 (11.5-15.0); RED BLOOD CELL COUNT(AUTO) 4.03 MIL/uL (4.5-6.0); WHITE BLOOD COUNT (AUTO) 8.2 K/uL (4.3-11.0)
[2018-02-01 07:42] LABS: CALCIUM, SERUM 8.7 mg/dL (8.5-10.1); CREATININE 0.7 mg/dL (0.6-1.3); POTASSIUM 3.5 mmol/L (3.5-5.1)
[2018-02-01 07:47] LABS: INR 1.05 (0.87-1.13)
[2018-02-01 08:00] VITALS: BP 131/54
[2018-02-01] MEDS: PANTOPRAZOLE 40 MG VIAL IV SCH (09:56)
[2018-02-01] MEDS: LORAZEPAM INJ 2 MG/ML VIAL IV PRN (13:45)
[2018-02-01] MEDS: IV D5/ 0.9% NACL 1,000 ML IV PRN (13:45)
[2018-02-01 16:15] VITALS: BP 125/75
[2018-02-01] MEDS: SILVER SULFADIAZINE CREAM 25 GM TUBE TP SCH (17:18)
[2018-02-01 20:00] VITALS: BP 128/76
[2018-02-01] MEDS: CEFTRIAXONE 1 G in IV D5W 50 ML IV SCH (22:37)
[2018-02-02] VITALS (13 sets, daily range): BP systolic 100–124; BP diastolic 51–72
[2018-02-02] MEDS: AZITHROMYCIN 500 MG in IV D5W 250 ML IV SCH (02:37)
[2018-02-02] MEDS: IV D5/ 0.9% NACL 1,000 ML IV PRN ×2 (02:50→20:39)
[2018-02-02] MEDS: PANTOPRAZOLE 40 MG VIAL IV SCH (08:28)
[2018-02-02] MEDS: SILVER SULFADIAZINE CREAM 25 GM TUBE TP SCH (08:29)
[2018-02-02 08:48] LABS: CALCIUM, SERUM 8.8 mg/dL (8.5-10.1); CREATININE 0.7 mg/dL (0.6-1.3); MAGNESIUM 2.1 mg/dL (1.8-2.4); POTASSIUM 3.6 mmol/L (3.5-5.1)
[2018-02-02 08:54] LABS: BASOPHILS % (AUTO) 0.5 % (0.0-2.0); EOSINOPHILS % (AUTO) 3.9 % (0.0-6.0); HEMATOCRIT 35 % (39-51); HEMOGLOBIN 11.8 g/dL (13.5-17.5); LYMPHOCYTES % (AUTO) 20.1 % (20.0-44.0); MEAN CORPUSCULAR HEMOGLOBIN 29 PG (26.0-33.0); MEAN CORPUSCULAR HGB CONC 34 g/dl (31.0-36.0); MEAN CORPUSCULAR VOLUME 88 fL (80-96); NEUTROPHILS % (AUTO) 66.5 % (43.0-81.0); PLATELET COUNT (AUTO) 259 /CMM (150-450); RDW COEFFICIENT OF VARIATION 13.5 (11.5-15.0); WHITE BLOOD COUNT (AUTO) 6.5 K/uL (4.3-11.0)
[2018-02-02 08:55] LABS: EOSINOPHILS # (AUTO) 0.3 /CMM (0.0-0.7); LYMPHOCYTES # (AUTO) 1.3 /CMM (0.8-4.8); MONOCYTES # (AUTO) 0.6 /CMM (0.1-1.30); NEUTROPHILS # (AUTO) 4.3 /CMM (1.8-8.9)
[2018-02-02] MEDS ORDERED: CEFT1FRO2 IV (15:18)
[2018-02-02] MEDS ORDERED: FIBERSOURCE HN 1,000 ML BOTTLE GT PRN (16:00)
[2018-02-02] MEDS: CEFTRIAXONE 1 G in IV D5W 50 ML IV SCH (20:32)
[2018-02-03] MEDS: AZITHROMYCIN 500 MG in IV D5W 250 ML IV SCH (02:44)
[2018-02-03 06:16] VITALS: BP 123/64
[2018-02-03] MEDS: PANTOPRAZOLE 40 MG VIAL IV SCH (08:08)
[2018-02-03] MEDS: SILVER SULFADIAZINE CREAM 25 GM TUBE TP SCH (08:09)
== END 2018-02-03 10:15 | DRG 393 ==
LOC: ER 18:48 → MED 20:16
PROVIDERS: ADMIT Nurse Practitioner Acute Care; ATTEND Nurse Practitioner Acute Care
PROC: 0DB48ZX Excision of Esophagogastric Junction, Via Natural or Artificial Opening Endoscopic, Diagnostic (ICD-10-PCS; 2018-02-02)
PROC: 0DH63UZ Insertion of Feeding Device into Stomach, Percutaneous Approach (ICD-10-PCS; principal; 2018-02-02 09:34)
DX: K94.23 Gastrostomy malfunction (principal); J18.9 Pneumonia, unspecified organism; T31.0 Burns involving less than 10% of body surface; E86.0 Dehydration; K22.2 Esophageal obstruction; E87.1 Hypo-osmolality and hyponatremia; F20.9 Schizophrenia, unspecified; F03.90 Unspecified dementia, unspecified severity, without behavioral disturbance, psychotic disturbance, mood disturbance, and anxiety; D64.9 Anemia, unspecified; R62.7 Adult failure to thrive; E78.5 Hyperlipidemia, unspecified; L98.8 Other specified disorders of the skin and subcutaneous tissue; S70.02XA Contusion of left hip, initial encounter; X58.XXXA Exposure to other specified factors, initial encounter; Y92.129 Unspecified place in nursing home as the place of occurrence of the external cause; K44.9 Diaphragmatic hernia without obstruction or gangrene; T21.22XA Burn of second degree of abdominal wall, initial encounter; X08.8XXA Exposure to other specified smoke, fire and flames, initial encounter; I70.90 Unspecified atherosclerosis; I10 Essential (primary) hypertension; R19.7 Diarrhea, unspecified
CPT/HCPCS: 36415; 71045-TC; 80048-TC; 81000-TC; 82272-TC; 83540-TC; 83735-TC; 84100-TC; 85025-TC; 85610-TC; 85730-TC; 87081-TC; 87086-TC; 88305-TC; A4606; C9113; J0456; J0696; J2060; J3490; J7042; J7060; J7070; Z7610

== ENCOUNTER 2018-02-21 08:47 | Emergency (ER) | payer MEDICARE, OTHER ==
[~2018-02-21] VITALS: Ht 167.6 cm; Wt 68.0 kg
[~2018-02-21 08:47] MED LIST changes: -ACET160S2 GT; -ALLA266C2 TP; +ASPI-1169 GT; +ATOR40TA GT; -BACI3.5O5 RIGHTEYE; +BRIM5DRO LEFTEYE; -BRIM5DRO5 LEFTEYE; -Boost Plus Food-Choclate PO; +CEFT1FRO2 IV; -CLOT15CR35 TP; -DIVA125C GT; -DORZ10DR13 LEFTEYE; -Fibersource Hn GT; -HYDR-3972 GT; +LACT-96 GT; -LORA1TAB GT; -MAG30ORA GT; +MELA3TAB GT; +METO25TA20 GT; -MIRT15TA3 GT; -OLAN2.5T3 GT; -TEMA7.5C GT; +TIMO10DR19 LEFTEYE
--- NOTE | 2018-02-21 09:17 | NUR ---
RECIEVED PT TO ED BED 12. PT WAS BROUGHT IN BY [facility] FROM [facility] FOR LEAKING GT. PT IS CONFUSED, A/OX0. PT GTUBE REPLACED WITH A SIZE 20 GT DONE BY ER . PT TOLERATED PROCEDURE. WILL CONT TO MONITOR
[2018-02-21] MEDS ORDERED: DIATR MEGLU/DIATRIZOATE SODIUM 30 ML BOTTLE (GASTROGRAPHIN) ONE (09:19)
--- NOTE | 2018-02-21 09:24 | NUR ---
KUB XRAY DONE AT BEDSIDE
[2018-02-21] MEDS ORDERED: DIATR MEGLU/DIATRIZOATE SODIUM 30 ML BOTTLE (GASTROGRAPHIN) PO ONE (09:30)
--- NOTE | 2018-02-21 10:44 | NUR ---
CALLED TRANSPORT ETA IS [phone] TRIP #[id number] JOSEPH MENDOZA
[2018-02-21 11:19] VITALS: BP 122/75
--- NOTE | 2018-02-21 11:19 | NUR ---
RIN #[id number] AT BEDSIDE TO WADER BOOT TOP ASSEMBLER THE PATIENT.
--- NOTE | 2018-02-21 11:20 | NUR ---
Patient discharged to home in stable condition. Written and verbal after care instructions given to brenda #[id number] EMT, verbalizing understanding of instruction. Left in stable condition
[2018-02-22] MEDS ORDERED: LORA-258 GT (09:49)
[2018-02-22] MEDS ORDERED: RISP0.5T5 GT (09:49)
== END 2018-02-21 11:20 | disposition home or self-care (01) ==
LOC: ER 08:48
DX: K94.23 Gastrostomy malfunction (principal); E78.5 Hyperlipidemia, unspecified; F03.90 Unspecified dementia, unspecified severity, without behavioral disturbance, psychotic disturbance, mood disturbance, and anxiety; F41.9 Anxiety disorder, unspecified; I10 Essential (primary) hypertension; F31.9 Bipolar disorder, unspecified; F20.9 Schizophrenia, unspecified; K59.00 Constipation, unspecified; Z79.82 Long term (current) use of aspirin
CPT/HCPCS: 74018; A4606; Q9963; Z7610

== ENCOUNTER 2018-02-22 09:04 | Inpatient (IN) | payer MEDICARE, OTHER ==
[~2018-02-22] VITALS: Ht 180.3 cm; Wt 60.8 kg
[2018-02-22] MEDS ORDERED: LORA-258 GT (09:49)
[2018-02-22] MEDS ORDERED: RISP0.5T5 GT (09:49)
[2018-02-22 09:50] LABS: BASOPHILS # (AUTO) 0.1 /CMM (0.0-0.2); BASOPHILS % (AUTO) 0.6 % (0.0-2.0); EOSINOPHILS % (AUTO) 0.7 % (0.0-6.0); HEMATOCRIT 41 % (39-51); HEMOGLOBIN 13.7 g/dL (13.5-17.5); LYMPHOCYTES # (AUTO) 1.4 /CMM (0.8-4.8); LYMPHOCYTES % (AUTO) 11.3 % (20.0-44.0); MEAN CORPUSCULAR HGB CONC 33 g/dl (31.0-36.0); MEAN CORPUSCULAR VOLUME 87 fL (80-96); MONOCYTES # (AUTO) 0.6 /CMM (0.1-1.30); MONOCYTES % (AUTO) 4.8 % (2.0-12.0); NEUTROPHILS # (AUTO) 9.8 /CMM (1.8-8.9); NEUTROPHILS % (AUTO) 82.6 % (43.0-81.0); PLATELET COUNT (AUTO) 275 /CMM (150-450); RED BLOOD CELL COUNT(AUTO) 4.73 MIL/uL (4.5-6.0)
[2018-02-22 10:00] VITALS: BP 149/78
[2018-02-22 10:00] LABS: CALCIUM, SERUM 9.6 mg/dL (8.5-10.1); CARBON DIOXIDE 30 mmol/L (21-32); CHLORIDE 106 mmol/L (98-107); CREATININE 0.9 mg/dL (0.6-1.3); GLUCOSE 105 mg/dL (74-106); POTASSIUM 4.2 mmol/L (3.5-5.1); SODIUM SERUM 143 mmol/L (136-145); UREA NITROGEN, BLOOD 20 mg/dL (7-18)
[2018-02-22] MEDS ORDERED: ACETAMINOPHEN 650 MG/SUPP.RECT RC PRN (11:00)
[2018-02-22] MEDS ORDERED: HYDROCODONE/APAP 5/325MG 1 EACH TABLET PO PRN (11:00)
[2018-02-22] MEDS ORDERED: MAG HYDROX/AL HYDROX/SIMETH 30 ML UDC PO PRN (11:00)
[2018-02-22] MEDS ORDERED: MAGNESIUM HYDROXIDE 30 ML UDC PO PRN (11:00)
[2018-02-22] MEDS ORDERED: ONDANSETRON HCL/PF 4 MG/2 ML VIAL IVP PRN (11:00)
[2018-02-22] MEDS ORDERED: Z GUARD REMEDY 2 OZ OINT TP PRN (11:00)
[2018-02-22] MEDS ORDERED: LORAZEPAM INJ 2 MG/ML VIAL IV PRN (11:00)
[2018-02-22] MEDS ORDERED: ZOLPIDEM TARTRATE 5 MG TABLET PO PRN (11:00)
[2018-02-22 12:00] VITALS: BP 149/78
[2018-02-22] MEDS: IV D5/ 0.9% NACL 1,000 ML IV PRN (12:20)
[2018-02-22] MEDS: PANTOPRAZOLE 40 MG VIAL IV SCH (12:20)
[2018-02-22 16:00] VITALS: BP 121/70
[2018-02-23 00:26] LABS: INR 1.03 (0.87-1.13)
[2018-02-23] MEDS: IV D5/ 0.9% NACL 1,000 ML IV PRN (03:45)
[2018-02-23 07:21] LABS: CALCIUM, SERUM 8.8 mg/dL (8.5-10.1); CARBON DIOXIDE 25 mmol/L (21-32); CHLORIDE 111 mmol/L (98-107); CREATININE 0.7 mg/dL (0.6-1.3); GLUCOSE 99 mg/dL (74-106); PHOSPHORUS 3.1 mg/dL (2.5-4.9); POTASSIUM 3.5 mmol/L (3.5-5.1); SODIUM SERUM 144 mmol/L (136-145); UREA NITROGEN, BLOOD 12 mg/dL (7-18)
[2018-02-23 07:23] LABS: CHOLESTEROL 83 mg/dL (<200); HDL CHOLESTEROL 45 mg/dL (40-60); LDL 33 mg/dL (0-99); TRIGLYCERIDES 33 mg/dL (30-150)
[2018-02-23 07:26] LABS: BASOPHILS # (AUTO) 0.1 /CMM (0.0-0.2); BASOPHILS % (AUTO) 0.5 % (0.0-2.0); EOSINOPHILS % (AUTO) 1.6 % (0.0-6.0); HEMATOCRIT 34 % (39-51); HEMOGLOBIN 11.3 g/dL (13.5-17.5); LYMPHOCYTES # (AUTO) 1.3 /CMM (0.8-4.8); LYMPHOCYTES % (AUTO) 12.1 % (20.0-44.0); MEAN CORPUSCULAR HGB CONC 33 g/dl (31.0-36.0); MEAN CORPUSCULAR VOLUME 88 fL (80-96); MONOCYTES # (AUTO) 0.7 /CMM (0.1-1.30); MONOCYTES % (AUTO) 6.1 % (2.0-12.0); NEUTROPHILS # (AUTO) 8.6 /CMM (1.8-8.9); NEUTROPHILS % (AUTO) 79.7 % (43.0-81.0); PLATELET COUNT (AUTO) 240 /CMM (150-450); RDW COEFFICIENT OF VARIATION 14.7 (11.5-15.0); RED BLOOD CELL COUNT(AUTO) 3.84 MIL/uL (4.5-6.0); WHITE BLOOD COUNT (AUTO) 10.8 K/uL (4.3-11.0)
[2018-02-23 08:00] VITALS: BP 145/62
[2018-02-23] MEDS: PANTOPRAZOLE 40 MG VIAL IV SCH (08:42)
[2018-02-23] MEDS: NEOMY SULF/BACITRAC ZN/POLY 15 GM TUBE TP SCH (08:43)
[2018-02-23] MEDS ORDERED: SUCCINYLCHOLINE CHLORIDE 20 MG/ML VIAL ONE (09:20)
[2018-02-23 16:00] VITALS: BP 148/76
[2018-02-23 20:00] VITALS: BP 126/71
[2018-02-23] MEDS ORDERED: FIBERSOURCE HN 1,000 ML BOTTLE GT PRN (22:00)
[2018-02-24] MEDS: IV D5/ 0.9% NACL 1,000 ML IV PRN (01:06)
[2018-02-24 08:00] VITALS: BP 154/85
[2018-02-24] MEDS: NEOMY SULF/BACITRAC ZN/POLY 15 GM TUBE TP SCH (08:16)
[2018-02-24] MEDS: PANTOPRAZOLE 40 MG VIAL IV SCH (08:16)
[2018-02-24 16:00] VITALS: BP 124/79
== END 2018-02-24 18:39 | DRG 393 ==
LOC: ER 09:06 → MEDSG1 09:59 → MED 20:00
PROVIDERS: ADMIT Hospitalist; ATTEND Hospitalist
PROC: 3E0G76Z Introduction of Nutritional Substance into Upper GI, Via Natural or Artificial Opening (ICD-10-PCS; 2018-02-23)
PROC: 0DH63UZ Insertion of Feeding Device into Stomach, Percutaneous Approach (ICD-10-PCS; principal; 2018-02-23 09:26)
DX: K94.23 Gastrostomy malfunction (principal); R53.2 Functional quadriplegia; F03.91 Unspecified dementia, unspecified severity, with behavioral disturbance; L89.899 Pressure ulcer of other site, unspecified stage; R13.10 Dysphagia, unspecified; F20.9 Schizophrenia, unspecified; E86.0 Dehydration; T21.2 Burn of second degree of trunk; D72.829 Elevated white blood cell count, unspecified; Y83.3 Surgical operation with formation of external stoma as the cause of abnormal reaction of the patient, or of later complication, without mention of misadventure at the time of the procedure; Y92.009 Unspecified place in unspecified non-institutional (private) residence as the place of occurrence of the external cause; R62.7 Adult failure to thrive; E78.5 Hyperlipidemia, unspecified; I10 Essential (primary) hypertension; F41.9 Anxiety disorder, unspecified; F31.9 Bipolar disorder, unspecified; H40.9 Unspecified glaucoma; H54.7 Unspecified visual loss; Z79.82 Long term (current) use of aspirin; Z79.899 Other long term (current) drug therapy; I70.0 Atherosclerosis of aorta; X08.8XXS Exposure to other specified smoke, fire and flames, sequela; M62.40 Contracture of muscle, unspecified site; K44.9 Diaphragmatic hernia without obstruction or gangrene
CPT/HCPCS: 36415; 71045-TC; 74018; 80048-TC; 80061-TC; 83735-TC; 84100-TC; 85025-TC; 85610-TC; 85730-TC; 87081-TC; A4606; C9113; J0330; J0690; J2060; J3490; J7042; Q9963; Z7610

== ENCOUNTER 2018-03-19 20:21 | Emergency (ER) | payer MEDICARE, OTHER ==
[~2018-03-19] VITALS: Ht 167.6 cm; Wt 68.0 kg
[~2018-03-19 20:21] MED LIST changes: -CEFT1FRO2 IV; +LORA-258 GT; +RISP0.5T5 GT
--- NOTE | 2018-03-19 20:30 | NUR ---
PT BIB [facility] WITH A C/O PT PULLING ON GTUBE. GTUBE IS TAPED, BUT IN PLACE. PT APPEARS CONFUSED AND HAS HX OF DEMENTIA. PT IS ON THE MONITOR AND CONTINUOUS PULSE OX.
[2018-03-19] MEDS ORDERED: OLANZAPINE 10 MG VIAL IM ONE ×2 (20:48→21:00)
--- NOTE | 2018-03-19 20:51 | NUR ---
PT REC'D MEDICATION ORDERED.
[2018-03-19 21:04] LABS: BASOPHILS % (AUTO) 0.4 % (0.0-2.0); EOSINOPHILS % (AUTO) 1.9 % (0.0-6.0); HEMATOCRIT 38 % (39-51); HEMOGLOBIN 12.9 g/dL (13.5-17.5); LYMPHOCYTES # (AUTO) 1.4 /CMM (0.8-4.8); LYMPHOCYTES % (AUTO) 20.9 % (20.0-44.0); MEAN CORPUSCULAR HGB CONC 34 g/dl (31.0-36.0); MEAN CORPUSCULAR VOLUME 88 fL (80-96); MONOCYTES # (AUTO) 0.4 /CMM (0.1-1.30); MONOCYTES % (AUTO) 6.2 % (2.0-12.0); NEUTROPHILS # (AUTO) 4.6 /CMM (1.8-8.9); NEUTROPHILS % (AUTO) 70.6 % (43.0-81.0); PLATELET COUNT (AUTO) 256 /CMM (150-450); RDW COEFFICIENT OF VARIATION 15.6 (11.5-15.0); RED BLOOD CELL COUNT(AUTO) 4.36 MIL/uL (4.5-6.0); WHITE BLOOD COUNT (AUTO) 6.5 K/uL (4.3-11.0)
--- NOTE | 2018-03-19 21:10 | NUR ---
PT IS STILL RESTLESS.
[2018-03-19 21:30] LABS: CALCIUM, SERUM 9.6 mg/dL (8.5-10.1); CARBON DIOXIDE 32 mmol/L (21-32); CHLORIDE 106 mmol/L (98-107); CREATININE 0.7 mg/dL (0.6-1.3); GLUCOSE 87 mg/dL (74-106); POTASSIUM 4.2 mmol/L (3.5-5.1); SODIUM SERUM 141 mmol/L (136-145); UREA NITROGEN, BLOOD 18 mg/dL (7-18)
[2018-03-19 21:32] LABS: ALCOHOL, BLOOD < 3 mg/dL (0-0)
[2018-03-19 21:37] LABS: TROPONIN I < 0.017 ng/mL (0.00-0.056)
--- NOTE | 2018-03-19 21:45 | NUR ---
CALLED [facility] FOR PSYCH EVAL, LEFT MESSAGE ON VOICEMAIL
--- NOTE | 2018-03-19 22:41 | NUR ---
PT APPEARS TO BE SLEEPING COMFORTABLY.
--- NOTE | 2018-03-19 23:30 | NUR ---
GTUBE PATENT AND BENIGN. APPROX 5ML RESIDUAL NOTED. GTUBE FLUSHED WITH 60ML WATER. NO LEAKAGE NOTED. GTUBE FLUSHED WELL.
--- NOTE | 2018-03-20 00:08 | NUR ---
PT APPEARS TO BE RESTING COMFORTABLE.
--- NOTE | 2018-03-20 01:27 | NUR ---
REPORT GIVEN TO [facility] STAFF. TO BE TRANSPORTED TO HOME FACILITY. NO S/S OF DISTRESS NOTED. RESP EVEN AND UNLABORED. Patient discharged to home in stable condition. Written and verbal after care instructions given. Patient verbalizes understanding of instruction.
[2018-03-20 01:28] VITALS: BP 138/71
== END 2018-03-20 01:28 | disposition home or self-care (01) ==
LOC: ER 20:23
DX: R45.1 Restlessness and agitation (principal); R41.82 Altered mental status, unspecified; I10 Essential (primary) hypertension; F03.90 Unspecified dementia, unspecified severity, without behavioral disturbance, psychotic disturbance, mood disturbance, and anxiety; F20.9 Schizophrenia, unspecified; F41.9 Anxiety disorder, unspecified; E78.5 Hyperlipidemia, unspecified; H40.9 Unspecified glaucoma; Z79.82 Long term (current) use of aspirin
CPT/HCPCS: 36415; 80048-TC; 84484-TC; 85025-TC; 87081-TC; A4606; G0480; J3490; Z7610

== ENCOUNTER 2018-08-20 20:38 | Inpatient (IN) | payer MEDICARE, OTHER ==
[~2018-08-20] VITALS: Ht 167.6 cm; Wt 63.0 kg
--- NOTE | 2018-08-20 21:03 | NUR ---
CHARISSE QUIÑONEZ [facility] FOR INCREASED AGITATION, RESTLESSNESS. PT IS LEGALLY BLIND. PT NOTED TO BE RESTLESS. PT IS AAOX1. SKIN WNL. NO S/S OF ACUTE DISTRESS NOTED. RR EVEN AND UNLABORED. PT SAFETY AND COMFORT MEASURES IN PLACE. WHEEL TRUER AND POX APPLIED. WILL CONTINUE TO MONITOR PT.
--- NOTE | 2018-08-20 21:20 | NUR ---
CALLED DR ZHU LEFT A VOICEMAIL.
--- NOTE | 2018-08-20 21:23 | NUR ---
DR ZHU CALLED BACK ON THE PHONE WITH STACY HENRY.
[2018-08-20] MEDS ORDERED: OLANZAPINE 10 MG VIAL IM ONE ×2 (21:24→21:30)
[2018-08-20] MEDS ORDERED: LORAZEPAM INJ 2 MG/ML VIAL ONE (21:24)
[2018-08-20 21:26] LABS: BASOPHILS # (AUTO) 0.1 /CMM (0.0-0.2); BASOPHILS % (AUTO) 0.7 % (0.0-2.0); EOSINOPHILS % (AUTO) 2.3 % (0.0-6.0); HEMATOCRIT 36 % (39-51); HEMOGLOBIN 12.1 g/dL (13.5-17.5); LYMPHOCYTES # (AUTO) 1.9 /CMM (0.8-4.8); LYMPHOCYTES % (AUTO) 25.1 % (20.0-44.0); MEAN CORPUSCULAR HGB CONC 34 g/dl (31.0-36.0); MEAN CORPUSCULAR VOLUME 92 fL (80-96); MONOCYTES # (AUTO) 0.7 /CMM (0.1-1.30); MONOCYTES % (AUTO) 9.3 % (2.0-12.0); NEUTROPHILS # (AUTO) 4.8 /CMM (1.8-8.9); NEUTROPHILS % (AUTO) 62.6 % (43.0-81.0); PLATELET COUNT (AUTO) 213 /CMM (150-450); RDW COEFFICIENT OF VARIATION 12.4 (11.5-15.0); RED BLOOD CELL COUNT(AUTO) 3.91 MIL/uL (4.5-6.0); WHITE BLOOD COUNT (AUTO) 7.7 K/uL (4.3-11.0)
[2018-08-20] MEDS ORDERED: LORAZEPAM INJ 2 MG/ML VIAL IM ONE (21:30)
[2018-08-20 21:41] LABS: CALCIUM, SERUM 9.3 mg/dL (8.5-10.1); CARBON DIOXIDE 30 mmol/L (21-32); CHLORIDE 108 mmol/L (98-107); CREATININE 0.9 mg/dL (0.6-1.3); GLUCOSE 87 mg/dL (74-106); POTASSIUM 4.4 mmol/L (3.5-5.1); SODIUM SERUM 143 mmol/L (136-145); UREA NITROGEN, BLOOD 28 mg/dL (7-18)
[2018-08-20 21:46] LABS: ACETAMINOPHEN 6 ug/ml (10-30); ALANINE AMINOTRANSFERASE 37 U/L (12-78); ALBUMIN 3.2 g/dL (3.4-5.0); ALCOHOL, BLOOD < 3 mg/dL (0-0); ALKALINE PHOSPHATASE 76 U/L (46-116); ASPARTATE AMINOTRANSFERASE 31 U/L (15-37); BILIRUBIN,DIRECT 0.1 mg/dL (0.0-0.2); BILIRUBIN,TOTAL 0.3 mg/dL (0.2-1.0); TOTAL PROTEIN, SERUM 6.6 g/dL (6.4-8.2)
[2018-08-20 21:47] LABS: SALICYLATE < 2.8 mg/dL (2.8-20.0)
[2018-08-20 22:42] LABS: APPEARANCE,URINE CLEAR (CLEAR); BILIRUBIN,URINE NEGATIVE (NEGATIVE); BLOOD, URINE NEGATIVE Ery/uL (NEGATIVE); COLOR,URINE YELLOW (YELLOW); KETONES,URINE TRACE (NEGATIVE); LEUKOCYTE ESTERASE ,URINE NEGATIVE (NEGATIVE); NITRITE, URINE NEGATIVE (NEGATIVE); PROTEIN,URINE NEGATIVE (NEGATIVE); UGLUCOSE NEGATIVE (NEGATIVE)
[2018-08-20 22:57] LABS: BACTERIA,URINE None seen /HPF (None Seen); MUCUS,URINE Few /LPF (None Seen); RBC,URINE 0-2 /HPF (0-2); SQUAMOUS EPITHELIAL CELL,UR Few /HPF (None Seen); WBC,URINE 0-2 /HPF (0-3)
--- NOTE | 2018-08-20 23:45 | NUR ---
PT ASSIGNED TO 304-2
--- NOTE | 2018-08-21 00:31 | NUR ---
REPORT GIVEN TO ARASELI JOY FOR KELLY
[2018-08-21 00:45] VITALS: BP_SYST 148; BP_DIAS 64; BP_DIAS 68
--- NOTE | 2018-08-21 00:45 | NUR ---
RN GPS OVERFLOW ADMITTING NOTES RECEIVED PATIENT VIA GURNEY FROM ER TRANSFER TO BED SAFELY.PATIENT ALERT AND ORIENTED X1 NOTED WITH CONFUSION, NO IV SITE, NOTED GTUBE INTACT, NO RESIDUALS PRESENT, BODY ASSESSMENT DONE NOTED WITH SCATTERED SCABS AND BRUISES TO BOTH UPPER ARMS, SACRAL AND LEFT ISHIUM REDNESS, AND SCAB TO RIGHT EYE AREA. NOTED PATIENT WITH MULTIPLE ATTEMPTS TO GET OOB. BELONGINGS LIST DONE, PERINEAL CARE PROVIDED, REPOSITIONED PATIENT, SAFETY PRECAUTIONS IN PLACE, BED ALARM IN PLACE, BED LOW AND LOCKED, WILL CONTINUE TO MONITOR AND NOTIFY MD OF ADMISSION.
--- NOTE | 2018-08-21 01:20 | NUR ---
RN GPS OVERFLOW NOTES SPOKE TO DR CAMP TO NOTIFY OF ADMISSION PATIENTS IS GPS ADMITTED FOR INCREASED AGITATION AND RESTLESNESS, PATIENT CONTINOUS ATTEMPTING TO GET OUT OF BED NEW ORDER FOR SITTER, SOFT BILATERAL WRIST RESTRAINTS, ABDOMINAL BINDER FOR PREVENTION OF GTUBE PULL OUT AND MD AWARE OF MEDIATION RECONCILED , ALSO PER MD CONTINUE CURRENT GTUBE FEEDING PREVIOUSLY ORDERED FROM SNF.
--- NOTE | 2018-08-21 02:30 | NUR ---
RN GPS NOTES UNABLE TO COMPLETE COMPLETE ADMISSION AT THIS TIME, PATIENT NEEDS TO BE SEEN BY PET TEAM AND PLACE ON HOLD. WILL CONTINUE TO FOLLOW UP FOR ASSESSMENT BY PET TEAM
--- NOTE | 2018-08-21 02:53 | NUR ---
CALLED ART FUR EXAMINER, AWARE OF PT ADMITTED TO FLOOR FOR GEROPSYCH OVERFLOW, PT ART PT CANNOT BE PLACED ON HOLD D/T GTUBE, PER DR. WARD TO EVALUATE.
--- NOTE | 2018-08-21 03:07 | NUR ---
ART FUNERAL HOME ASSOCIATE AWARE OF PT ADMIT TO GPS OVERFLOW, WILL CALL BACK.
--- NOTE | 2018-08-21 04:00 | NUR ---
RN GPS OVERFLOW SEEN BY ART PATIENT PLACED ON 72 HOUR HOLD GRAVELY DISABLED ADULT
--- NOTE | 2018-08-21 05:00 | NUR ---
RM GPS OVERFLOW JEVITY 1.5 UNAVAILABLE AT THIS TIME, WILL GIVE JEVITY 1.2 BOLUS ORDERED FROM FACILITY 237CC
[2018-08-21] MEDS: JEVITY 1.2 CAL 1,000 ML BOTTLE GT PRN ×3 (05:01→14:13)
[2018-08-21] MEDS ORDERED: MAG HYDROX/AL HYDROX/SIMETH 30 ML UDC GT PRN (05:30)
[2018-08-21] MEDS ORDERED: MAGNESIUM HYDROXIDE 30 ML UDC GT PRN (05:30)
--- NOTE | 2018-08-21 06:38 | NUR ---
RN GPS OVERFLOW CLOSING NOTES PATIENT IN BED ALERT AND ORIENTED X1 NOTED WITH CONFUSION, NO IV SITE, NOTED GTUBE REMAINS INTACT, BRUIT HEARD, PLACEMENT CHECKED, NO RESIDUALS PRESENT, NOTED WITH SCATTERED SCABS AND BRUISES TO BOTH UPPER ARMS, SACRAL AND LEFT ISHIUM REDNESS, AND SCAB TO RIGHT EYE AREA. NOTED PATIENT WITH MULTIPLE ATTEMPTS TO GET OOB CONFUSED . PATIENT IS ON A 1:1 SITTER, PERINEAL CARE PROVIDED, REPOSITIONED PATIENT AND REASSESSED BILATERAL RESTRAINTS, CIRCULATION ASSESSED, SAFETY PRECAUTIONS IN PLACE, BED ALARM IN PLACE, BED LOW AND LOCKED, WILL CONTINUE TO MONITOR AND ENDORSE TO NEXT SHIFT. ATTEMPTED TO CALL BARRON GRAY TO UPDATE OF NEW STATUS NUMBER ON FACESHEET , UNABLE TO REACH.
--- NOTE | 2018-08-21 07:57 | NUR ---
RN GPS/OVERFLOW NOTES RECEIVED PT. IN BED SLEEPING. 1:1 SITTER AT BEDSIDE. BREATHING IS UNLABORED ON ROOM AIR. NO S/S OF ACUTE DISTRESS. BED IS IN LOWEST, AND LOCKED POSITION 2 SIDE RAILS UP. PT. HAS A G TUBE. ALL NEEDS MET. WILL CONTINUE TO ASSESS AND MONITOR.
[2018-08-21] MEDS ORDERED: ACETAMINOPHEN 650 MG/20.3 ML UDC PO PRN (08:30)
[2018-08-21] MEDS: METOPROLOL TARTRATE 25 MG TABLET GT SCH ×2 (09:00→17:12)
[2018-08-21] MEDS: ASPIRIN 81 MG TAB.CHEW GT SCH (09:07)
[2018-08-21] MEDS: BRIMONIDINE TARTRATE OPHT SOLN 5 ML BOTTLE LEFTEYE SCH ×3 (09:08→17:18)
[2018-08-21] MEDS: TIMOLOL 0.25% SOL OPHTH 10 ML BOTTLE LEFTEYE SCH ×2 (09:08→22:59)
[2018-08-21] MEDS: LORAZEPAM 0.5 MG TABLET GT PRN (13:51)
[2018-08-21] MEDS ORDERED: OLANZAPINE 10 MG VIAL IM ONE ×2 (16:30→23:30)
[2018-08-21] MEDS ORDERED: LORAZEPAM INJ 2 MG/ML VIAL IM ONE (16:30)
--- NOTE | 2018-08-21 16:30 | NUR ---
PT. STARTED TO BECOME RESTLESS, AND AGITATED. PT. ATTEMPTED TO GET OUT OF BED, COULD NOT FOLLOW INSTRUCTIONS, AND BEGAN SHOUTING AT THE MEDICAL STAFF. WHILE ASSISTING HIS LEGS BACK INTO BED, PT. BEGAN KICKING. PT. WAS PLACED IN BILATERAL SOFT WRIST RESTRAINTS, AND CONTINUED TO BECOME MORE RESTLESS. DR. COSTA WAS CONTACTED, AND NEW ORDERS WERE GIVEN FOR ZYPREXA 5 MG IM, AND ATIVAN 1 MG IM ONCE NOW.
--- NOTE | 2018-08-21 19:40 | NUR ---
RN INITIAL NOTES: RECEIVED REPORT FROM ARASELI CONNELLY. PT IN BED, VERY CONFUSED, AGITATED, TRYING TO GET OUT OF BED, WHEN I RECEIVED THE PT THE RESTRAINTS WERE OFF, BUT THERE IS AN ORDER FOR IT, PT ALMOST KICK AND HIT THE SITTER AND RN, PLACED THE RESTRAINT ON PT, BILATERAL SOFT WRIST RESTRAINT INITIATED, RESTRAINT PROTOCOL FOLLOWED, PT ABLE TO MOVE AND WIGGLE HANDS AND ARMS, BILATERAL RADIAL PULSE PALPABLE AND INTACT, NO S/S OF IMPEDIMENT IN CIRCULATION NOTED. PT HAS NO IV ACCESS PER GPS POLICY. SITTER AT BED SIDE. VS TAKEN AND RECORDED. SAFETY PRECAUTIONS FOR FALL INITIATED, BED ALARM SECURED, KEPT SIDE RAILS UP X2 FOR SAFETY. WILL CONTINUE MONITORING PT.
--- NOTE | 2018-08-21 20:30 | NUR ---
RN NOTES: PT BEING COMBATIVE, RESTLESS, AGITATED, TRYING TO KICK STAFF, PT ALREADY ON BILATERAL SOFT WRIST RESTRAINT HOWEVER PT VERY STRONG AND OUT OF CONTROL, INFORMED ON CLL MD WITH ORDERS TO CONTINUE WITH BILATERAL SOFT WRIST RESTRAINT AND 1:1 SITTER
[2018-08-21] MEDS ORDERED: risperiDONE LIQUID 1 MG/ML ML GT SCH (21:00)
--- NOTE | 2018-08-21 22:53 | NUR ---
RN NOTES: FINALLY NABLE TO VERIFY THE MEDICATION RISPERDAL LIQUID, HOWEVER THERE IS NO RISPERDAL LIQUID AVAILABLE IN ANY OF THE [id number], RN MANAGER ELECTRICAL ALSO STATED WE DONT HAVE RISPERDAL LIQUID IN THE NIGHT LOCKER. CONTACTED DR COSTA AT THE PAGER NUMBER [phone], AWAITING FOR CALLBACK
--- NOTE | 2018-08-21 22:55 | NUR ---
RN NOTES: RECEIVED CALL BACK FROM PSYCH MD DR COSTA, PER MD TO GIVE RISPERDAL TBLET 0.5MG Q12HRS AND DC THE ORDER FOR RISPERDAL LIQUID, ALSO FOR PT AGITATION AND UNCONTROLLED BEHAVIOR TO GIVE ZYPREXA 10MG IM X 1 DOSE
[2018-08-21] MEDS: ATORVASTATIN 40 MG TABLET GT SCH (22:59)
--- NOTE | 2018-08-21 22:59 | NUR ---
RN NOTES: PT HAS GTUBE IN PLACED. ABDOMEN SOFT TO TOUCH WITH ACTIVE BOWEL SOUNDS HEARD UPON AUSCULTATION OF THE ABDOMEN. NO RESIDUAL OBTAINED WHEN CHECKING GTUBE RESIDUAL AND PATENCY CHECK. ALL DUE MEDS ADMINISTERED AT THIS TIME. ALSO ORDER FOR BOLUS TUBE FEEDING OF JEVITY 1.2 ADMINISTERED AT THIS TIME, 237ML ADMINISTERED, ABDOMINAL BINDER IN PLACED.
[2018-08-21 23:20] VITALS: BP 103/60
--- NOTE | 2018-08-21 23:24 | NUR ---
ZYPREXA IM X1 DOSE: PT VERY AGITATED AND HAS UNCONTROLLED BEHAVIOR KICKING STAFF EVEN WHEN HE HAS SOFT WRIST RESTRAINT, AND SITTER, PER MD TO GIVE ONE TIME DOSE OF IM ZYPREXA 10MG
[2018-08-21] MEDS: risperiDONE 1 MG TABLET PO SCH (23:31)
--- NOTE | 2018-08-21 23:31 | NUR ---
RN NOTES: RISPERDAL 0.5 TABLET CRUSHED AND ADMINISTERED VIA GTUBE PER MD ORDER
[2018-08-22] MEDS: LORAZEPAM 0.5 MG TABLET GT PRN ×3 (01:53→17:03)
[2018-08-22] MEDS: JEVITY 1.2 CAL 1,000 ML BOTTLE GT PRN ×6 (01:57→22:34)
--- NOTE | 2018-08-22 05:22 | NUR ---
RN NOTES: ADMINISTERED JEVITY 237ML BOLUS ORDERED BY MD VIA GTUBE
--- NOTE | 2018-08-22 06:31 | NUR ---
RN CLOSING NOTES: PT IN BED, SLEEPING, AROUSES TO TACTILE STIMULI, VERY CONFUSED, ALERT TO SELF ONLY. NO IV ACCESS PER GPS POLICY. SITTER AT BED SIDE. GTUBE REMAINS IN PLACED, COVERED WITH ABDOMINAL BINDER. BILATERAL SOFT WRIST RESTRAINT IN PLACED, NO S/S OF IMPEDIMENT IN CIRCULATION NOTED, BILATERAL RADIAL PULSES INTACT AND PALPABLE. SAFETY PRECAUTIONS FOR FALL REMAINS ENGAGED, SIDE RAILS UP X2 FOR SAFETY, BED BRAKES ENGAGED AND IN LOWEST POSITION. WILL ENDORSE TO DAY RN FOR CONTINUITY OF CARE.
[2018-08-22 07:43] VITALS: BP 122/71
--- NOTE | 2018-08-22 07:50 | NUR ---
RN GPS/OVERFLOW OPENING NOTES RECEIVED PT. IN BED AWAKE, PT. IS RESTLESS. PT. IS WEARING BILATERAL SOFT WRIST RESTRAINTS. 1:1 SITTER AT BEDSIDE. BREATHING IS UNLABORED ON ROOM AIR. BED IS IN LOWEST, AND LOCKED POSITION 2 SIDE RAILS UP. PT. HAS A G TUBE. ALL NEEDS MET. WILL CONTINUE TO ASSESS AND MONITOR.
[2018-08-22 09:02] LABS: ALANINE AMINOTRANSFERASE 37 U/L (12-78); ALBUMIN 2.9 g/dL (3.4-5.0); ALKALINE PHOSPHATASE 71 U/L (46-116); ASPARTATE AMINOTRANSFERASE 39 U/L (15-37); BILIRUBIN,TOTAL 0.3 mg/dL (0.2-1.0); CALCIUM, SERUM 8.9 mg/dL (8.5-10.1); CARBON DIOXIDE 28 mmol/L (21-32); CHLORIDE 106 mmol/L (98-107); CREATININE 0.7 mg/dL (0.6-1.3); GLUCOSE 95 mg/dL (74-106); MAGNESIUM 2.2 mg/dL (1.8-2.4); PHOSPHORUS 3.5 mg/dL (2.5-4.9); POTASSIUM 3.9 mmol/L (3.5-5.1); SODIUM SERUM 138 mmol/L (136-145); TOTAL PROTEIN, SERUM 6.5 g/dL (6.4-8.2); UREA NITROGEN, BLOOD 18 mg/dL (7-18)
[2018-08-22] MEDS: ASPIRIN 81 MG TAB.CHEW GT SCH (09:33)
[2018-08-22] MEDS: risperiDONE 1 MG TABLET PO SCH (09:33)
[2018-08-22] MEDS: METOPROLOL TARTRATE 25 MG TABLET GT SCH ×2 (09:35→17:04)
[2018-08-22] MEDS: TIMOLOL 0.25% SOL OPHTH 10 ML BOTTLE LEFTEYE SCH ×2 (09:40→21:58)
[2018-08-22] MEDS: BRIMONIDINE TARTRATE OPHT SOLN 5 ML BOTTLE LEFTEYE SCH ×3 (09:40→17:03)
[2018-08-22 09:45] LABS: BASOPHILS % (AUTO) 0.3 % (0.0-2.0); EOSINOPHILS % (AUTO) 2.2 % (0.0-6.0); HEMATOCRIT 41 % (39-51); HEMOGLOBIN 13.3 g/dL (13.5-17.5); LYMPHOCYTES # (AUTO) 1.3 /CMM (0.8-4.8); LYMPHOCYTES % (AUTO) 19.8 % (20.0-44.0); MEAN CORPUSCULAR HGB CONC 33 g/dl (31.0-36.0); MEAN CORPUSCULAR VOLUME 95 fL (80-96); MONOCYTES # (AUTO) 0.5 /CMM (0.1-1.30); MONOCYTES % (AUTO) 7.8 % (2.0-12.0); NEUTROPHILS # (AUTO) 4.6 /CMM (1.8-8.9); NEUTROPHILS % (AUTO) 69.9 % (43.0-81.0); PLATELET COUNT (AUTO) 230 /CMM (150-450); RDW COEFFICIENT OF VARIATION 13.1 (11.5-15.0); RED BLOOD CELL COUNT(AUTO) 4.33 MIL/uL (4.5-6.0); WHITE BLOOD COUNT (AUTO) 6.7 K/uL (4.3-11.0)
[2018-08-22 10:07] LABS: CHOLESTEROL 89 mg/dL (<200); HDL CHOLESTEROL 46 mg/dL (40-60); LDL 39 mg/dL (0-99); THYROID STIMULATING HORMONE 3.114 uIU/mL (0.358-3.74); TRIGLYCERIDES 54 mg/dL (30-150)
[2018-08-22 15:52] VITALS: BP 152/87
--- NOTE | 2018-08-22 19:01 | NUR ---
RN GPS/OVERFLOW CLOSING NOTES PT. IS IN BED AWAKE, A&OX1, PT. IS RESTLESS. PT. IS WEARING BILATERAL SOFT WRIST RESTRAINTS. 1:1 SITTER AT BEDSIDE. BREATHING IS UNLABORED ON ROOM AIR. PT. HAS A G TUBE. BED IS IN LOWEST, AND LOCKED POSITION 2 SIDE RAILS UP. ALL NEEDS MET. WILL ENDORSE REPORT. PT. WAS SEEN AND EXAMINED BY DR. COSTA.
--- NOTE | 2018-08-22 19:45 | NUR ---
RN INITIAL NOTES: RECEIVED REPORT FORM GODWIN MARX, PT IN BED, CONFUSED, KNOWS HIS NAME, RESPIRATION EVEN AND UNLABORED, UNABLE TO GET PERTINENT INFORMATION DUE TO MENTAL CONDITION OF THE PT. ON BILATERAL SOFT WRIST RESTRAINT IN PLACED, PROTOCOL INITIATED, BILATERAL RADIAL PULSES INTACT AND PALPABLE, GOOD CAPILLARY REFILL NOTED, PT ABLE TO MOVE AND WIGGLE ARMS. NO S/S OF IMPEDIMENT IN CIRCULATION NOTED. BLE OFFLOADED. SITTER AT BED SIDE. SAFETY PRECAUTIONS FOR FALL ENGAGED, BED ALARM SECURED, SIDE RAILS UP X2 FOR SAFETY. WILL MONITOR FOR SAFETY [id number] AND FOR ANY CHANGES IN BEHAVIOR.
[2018-08-22 20:00] VITALS: BP 120/64
[2018-08-22] MEDS: ATORVASTATIN 40 MG TABLET GT SCH (21:55)
[2018-08-22] MEDS: risperiDONE LIQUID 1 MG/ML ML GT SCH (21:57)
--- NOTE | 2018-08-22 22:36 | NUR ---
rn notes: checked gtube patency and residual, no residual obtained, all due meds administered vis gtube. jevity 1.2 237ml bolus administered as ordered.
--- NOTE | 2018-08-23 05:03 | NUR ---
RN NOTES/ CONTINUITY OF CARE RECEIVED REPORT FROM ARASELI WHEELER. PT IS ASLEEP IN BED, SITTER AT BEDSIDE. G-TUBE DRESSING IS INTACT, NO SIGNS OF INFECTION, ABDOMINAL BINDER WRAPPED AROUND THE BODY. BILATERAL SOFT WRIST RESTRAINT IS IN PLACED. WILL CONTINUE TO MONITOR AND ASSESS PT
--- NOTE | 2018-08-23 05:03 | NUR ---
RN CLOSING NOTES: PT IN BED, SLEEPING, AROUSES TO TACTILE STIMULI. SITTER AT BED SIDE. GTUBE REMAINS IN PLACED, COVERED WITH ABDOMINAL BINDER. BILATERAL SOFT WRIST RESTRAINT IN PLACED, NO S/S OF IMPEDIMENT IN CIRCULATION NOTED, BILATERAL RADIAL PULSES INTACT AND PALPABLE. SAFETY PRECAUTIONS FOR FALL REMAINS ENGAGED, SIDE RAILS UP X2 FOR SAFETY, BED BRAKES ENGAGED AND IN LOWEST POSITION. REPORT GIVEN TO ARASELI CHOI_FOR CONTINUITY OF CARE.
[2018-08-23] MEDS: JEVITY 1.2 CAL 1,000 ML BOTTLE GT PRN ×5 (05:14→22:01)
--- NOTE | 2018-08-23 06:27 | NUR ---
RN CLOSING NOTES PT IN BED, CONFUSED, KNOWS HIS NAME, RESPIRATION EVEN AND UNLABORED. PT ON BILATERAL SOFT WRIST RESTRAINT IN PLACED, PROTOCOL INITIATED, BILATERAL RADIAL PULSES INTACT AND PALPABLE, GOOD CAPILLARY REFILL NOTED, PT ABLE TO MOVE AND WIGGLE ARMS. NO S/S OF IMPEDIMENT IN CIRCULATION NOTED. BLE OFFLOADED. SITTER AT BED SIDE. SAFETY PRECAUTIONS FOR FALL ENGAGED, BED ALARM SECURED, SIDE RAILS UP X2 FOR SAFETY. WILL ENDORSE CONTINUITY OF CARE TO THE ONCOMING RN
--- NOTE | 2018-08-23 07:40 | NUR ---
RN NOTES PATIENT SLEEPING BUT EASILY AWAKEN, NO DISTRESS NOTED, KEPT PATIENT COMFORTABLE, JENY. SOFT WRIST RESTRAINTS IN PLACED, CHECKED FOR CIRCULATION AND SKIN BREAKDOWN. CALL LIGHT WITHIN REACH, SAFETY MEASURES IN PLACED, WILL CONTINUE TO MONITOR.
[2018-08-23] MEDS: ASPIRIN 81 MG TAB.CHEW GT SCH (08:00)
[2018-08-23] MEDS: risperiDONE LIQUID 1 MG/ML ML GT SCH (08:00)
[2018-08-23] MEDS: BRIMONIDINE TARTRATE OPHT SOLN 5 ML BOTTLE LEFTEYE SCH ×3 (08:05→16:24)
[2018-08-23] MEDS: TIMOLOL 0.25% SOL OPHTH 10 ML BOTTLE LEFTEYE SCH ×2 (08:05→21:16)
[2018-08-23] MEDS: METOPROLOL TARTRATE 25 MG TABLET GT SCH ×2 (08:06→18:23)
[2018-08-23] MEDS: LORAZEPAM 0.5 MG TABLET GT PRN (10:45)
--- NOTE | 2018-08-23 11:18 | NUR ---
WOUND CARE CONSULT WOUND CARE RECEIVED CONSULT FOR WOUND TO LEFT ISCHIUM AND HYPERGRANULATION TO G TUBE SITE. WOUND CARE WILL DEFER CONSULT AND ALL TREATMENT PLANS TO PLASTIC SURGICAL TEAM WHO ARE CURRENTLY FOLLOWING. PATIENT WITH SERJIO AT 14. ALL PRESSURE ULCER PREVENTION MEASURES ARE NOTED TO BE IN PLACE AT THIS TIME. WILL SEE PRN.
[2018-08-23] MEDS ORDERED: Z GUARD REMEDY 2 OZ OINT TP PRN (11:30)
[2018-08-23] MEDS ORDERED: OLANZAPINE 10 MG VIAL IM STA (16:57)
[2018-08-23] MEDS ORDERED: risperiDONE LIQUID 1 MG/ML ML GT SCH (17:00)
[2018-08-23] MEDS ORDERED: DIVALPROEX SODIUM 125 MG CAP.SPRINK PO SCH (17:00)
--- NOTE | 2018-08-23 17:05 | NUR ---
RN NOTES PATIENT AGITATED AND COMBATIVE, RESTLESS AND ATTEMPTING TO PULL OUT G-TUBE, INFORMED DR. ZHU, RECEIVED ORDER TO GIVE ZYPREXA 3MG IM X1 NOW AND HOLD RISPERDAL AT THIS TIME. NEEDS ORDER AND CARRIED OUT. SITTER AT BEDSIDE. SAFETY PRECAUTIONS OBSERVED,, WILL CONTINUE TO MONITOR.
--- NOTE | 2018-08-23 19:04 | NUR ---
RN NOTES PATIENT STILL AGITATED, AND RESTLESS, COMBATIVE WITH STAFF. ZYPREXA IS INEFFECTIVE. INFORMED DR. ZHU AND RECEIVED NEW ORDER FOR RISPERDAL 1MG VIA GT X1 AND ATIVAN 0.5MG VIA GT X1 TOGETHER. ORDER NOTED AND CARRIED OUT. SITTER AT BEDSIDE, NEEDS ATTENDED AND MET, SKIN CARE RENDERED, WOUND TREATMENT RENDERED, NEEDS ATTENDED, SAFETY MEASURES IN PLACED, CALL LIGHT WITHIN REACH, WILL ENDORSE TO CLERK TO JUSTICE FOR KELLY.
[2018-08-23] MEDS ORDERED: risperiDONE LIQUID 1 MG/ML ML GT ONE (19:30)
[2018-08-23] MEDS ORDERED: LORAZEPAM 0.5 MG TABLET GT ONE (19:30)
--- NOTE | 2018-08-23 19:30 | NUR ---
MS/RN PATIENT AWAKE, CONFUSED, AGITATED, WILL MEDICATE WITH ATIVAN AND RISPERDAL ORDERED SOON THEY ARE VERIFIED BY THE PHARMACY, NO DISTRESS NOTED, SITTER AT BEDSIDE. WILL MONITOR.
[2018-08-23 20:00] VITALS: BP 101/61
--- NOTE | 2018-08-23 20:33 | NUR ---
MS/RN PATIENT STILL AGITATED, ATIVAN 0.5 MG GT WAS GIVEN ORDERED. WILL MONITOR.
[2018-08-23] MEDS: BENZTROPINE MESYLATE (1 MG) 1 MG TABLET NG SCH (21:14)
[2018-08-23] MEDS: ATORVASTATIN 40 MG TABLET GT SCH (21:14)
[2018-08-23] MEDS: TEMAZEPAM 7.5 MG CAPSULE GT PRN (22:03)
--- NOTE | 2018-08-24 00:50 | NUR ---
MS/RN PATIENT IS SLEEPING AT THIS TIME, AROUSABLE, CALM AND COMFORTABLE, NO DISTRESS NOTED SITTER AT BEDSIDE.
[2018-08-24] MEDS: JEVITY 1.2 CAL 1,000 ML BOTTLE GT PRN (05:02)
--- NOTE | 2018-08-24 06:36 | NUR ---
MS/RN PATIENT STILL SLEEPING AT THIS TIME, AROUSABLE, APPEAR COMFORTABLE, NO SIGNS OF DISTRESS NOTED, ALL NEEDS ATTENDED AT THIS TIME, WILL CONTINUE TO MONITOR.
--- NOTE | 2018-08-24 07:30 | NUR ---
MS RN NOTES PATIENT IN BED EASILY AWAKEN, RESPOND TO VERBAL AND TACTILE STIMULI. NO ACUTE DISTRESS NOTED, BREATHING UNLABORED. NO FACIAL GRIMACING NOTED. SAFETY MEASURES IN PLACE. SITTER AT BEDSIDE. WILL CONTINUE TO MONITOR ACCORDINGLY.
[2018-08-24] MEDS ORDERED: risperiDONE LIQUID 1 MG/ML ML GT SCH (09:00)
[2018-08-24] MEDS ORDERED: VALPROIC ACID 250 MG/5 ML UDC GT SCH (09:00)
[2018-08-24] MEDS: ASPIRIN 81 MG TAB.CHEW GT SCH (09:03)
[2018-08-24] MEDS: METOPROLOL TARTRATE 25 MG TABLET GT SCH ×2 (09:04→17:26)
[2018-08-24] MEDS: BENZTROPINE MESYLATE (1 MG) 1 MG TABLET NG SCH ×2 (09:04→17:26)
[2018-08-24] MEDS: BRIMONIDINE TARTRATE OPHT SOLN 5 ML BOTTLE LEFTEYE SCH ×3 (09:13→17:27)
[2018-08-24] MEDS: TIMOLOL 0.25% SOL OPHTH 10 ML BOTTLE LEFTEYE SCH ×2 (09:13→21:23)
[2018-08-24] MEDS: LORAZEPAM 0.5 MG TABLET GT PRN ×2 (11:09→20:23)
--- NOTE | 2018-08-24 11:49 | NUR ---
SW contacted pts son Chun [phone] for collateral information and discharge planning. Call was disconnected, SW attempted to call again and call went straight to voicemail. SW left a voicemail for call back.
--- NOTE | 2018-08-24 11:59 | NUR ---
SW spoke with Carmen, care transition coordinator at [facility] Address: [address] , [place] [address] who confirmed pt is able to return once stable for discharge.
--- NOTE | 2018-08-24 13:11 | NUR ---
INITIAL DISCHARGE PLAN: Patient may need placement, AVA contacted [facility] Address: [address] , [place] [address] and spoke with Carmen who stated pt is able to return. However, according to she received a call from Carmen stating pt is not fit for [facility] and they are unable to provide pt with level of care he needs. AVA will help form a safe and proper discharge in collaboration with .
[2018-08-24] MEDS: VALPROIC ACID 250 MG/5 ML UDC GT SCH (17:25)
[2018-08-24] MEDS: risperiDONE LIQUID 1 MG/ML ML GT SCH (17:28)
--- NOTE | 2018-08-24 19:00 | NUR ---
MS RN NOTES PATIENT IN BED AWAKE, VERBALLY RESPONSIVE, NO ACUTE DISTRESS NOTED, BREATHING UNLABORED. DENIED ANY PAIN AT THIS TIME. DUE MEDICATIONS GIVEN, NO ASE NOTED. NEEDS ATTENDED AND ANTICIPATED. KEPT CLEAN DRY AND COMFORTABLE. HOB ELEVATED. SAFETY MEASURES IN PLACE. SITTER AT BEDSIDE. GTUBE INTACT AND PATENT. ENDORSED TO NIGHT NURSE FOR CONTINUITY OF CARE..
[2018-08-24 20:00] VITALS: BP_SYST 127; BP_DIAS 60; BP_DIAS 68
--- NOTE | 2018-08-24 20:30 | NUR ---
MS/RN PATIENT IS VERY RESTLESS AT THIS TIME, ATIVAN 0.5 MG GT WAS GIVEN ORDERED. WILL MONITOR.
[2018-08-24] MEDS: ATORVASTATIN 40 MG TABLET GT SCH (21:22)
--- NOTE | 2018-08-24 21:30 | NUR ---
MS/RN PATIENT IS SLEEPING AT THIS TIME, EASILY AROUSABLE, APPEAR COMFORTABLE, NO SIGNS OF DISTRESS NOTED, SITTER AT BEDSIDE. WILL CONTINUE TO MONITOR.
[2018-08-24] MEDS: TEMAZEPAM 7.5 MG CAPSULE GT PRN (21:33)
[2018-08-25] MEDS: JEVITY 1.2 CAL 1,000 ML BOTTLE GT PRN ×5 (05:12→21:52)
--- NOTE | 2018-08-25 06:08 | NUR ---
MS/RN PATIENT STILL SLEEPING AT THIS TIME, EASILY AROUSABLE, APPEAR COMFORTABLE, NO DISTRESS NOTED, SITTER AT BEDSIDE. ALL NEEDS ATTENDED AT THIS TIME. WILL CONTINUE TO MONITOR.
--- NOTE | 2018-08-25 07:30 | NUR ---
RN NOTES PATIENT SLEEPING AT THIS TIME, NO DISTRESS NOTED, SITTER AT BEDSIDE, KEPT PATIENT COMFORTABLE, CALL LIGHT WITHIN REACH, WILL CONTINUE TO MONITOR.
[2018-08-25 08:00] VITALS: BP 107/53
[2018-08-25] MEDS: risperiDONE LIQUID 1 MG/ML ML GT SCH (08:23)
[2018-08-25] MEDS: BENZTROPINE MESYLATE (1 MG) 1 MG TABLET NG SCH (08:23)
[2018-08-25] MEDS: ASPIRIN 81 MG TAB.CHEW GT SCH (08:23)
[2018-08-25] MEDS: VALPROIC ACID 250 MG/5 ML UDC GT SCH ×3 (08:24→17:05)
[2018-08-25] MEDS: METOPROLOL TARTRATE 25 MG TABLET GT SCH ×2 (08:24→17:05)
[2018-08-25] MEDS: TIMOLOL 0.25% SOL OPHTH 10 ML BOTTLE LEFTEYE SCH ×2 (08:25→20:18)
[2018-08-25] MEDS: BRIMONIDINE TARTRATE OPHT SOLN 5 ML BOTTLE LEFTEYE SCH ×3 (08:25→17:05)
[2018-08-25] MEDS: LORAZEPAM 0.5 MG TABLET GT PRN (10:23)
--- NOTE | 2018-08-25 11:00 | NUR ---
AVA faxed SNF referral to CJ enrollment management coordinator at [facility] Address: [address] [place] [address] for review.
[2018-08-25] MEDS: OLANZAPINE 5 MG/TAB.RAPDIS PO SCH ×2 (12:28→20:18)
--- NOTE | 2018-08-25 15:20 | NUR ---
AVA faxed SNF referral to admissions at [facility] Address: [address], [place] [address] for review.
[2018-08-25 16:16] VITALS: BP 121/79
--- NOTE | 2018-08-25 18:35 | NUR ---
RN NOTES PATIENT CONFUSED, NO SIGNIFICANT CHANGE THIS SHIFT. ASSISTED WITH TURNING AND REPOSITIONING, BUT PATIENT HAD BEEN RESTLESS, DR. ZHU MADE AWARE, SAFETY MEASURES PROVIDED, SITTER AT BEDSIDE, WOUND TREATMENT RENDERED, SKIN CARE PROVIDED, BOLUS FEEDING GIVEN SCHEDULED, NEEDS ATTENDED AND MET, CALL LIGHT WITHIN REACH, WILL ENDORSE TO BEESWAX BLEACHER FOR KELLY.
--- NOTE | 2018-08-25 19:30 | NUR ---
RECEIVED PATIENT IN BED ASLEEP, EASILY AROUSABLE. AO X 1, RESPONSIVE TO VOICE AND TOUCH. CALM AT THIS TIME. NO ACUTE DISTRESS NOTED. NO SIGNS PAIN NOTED. SAFETY REMINDERS GIVEN. ON LOW BED WITH BILATERAL UPPER SIDE RAILS UP. CALL CAMPBELL WITHIN EASY REACH. WILL CONTINUE TO MONITOR. SITTER AT BEDSIDE.
[2018-08-25 20:00] VITALS: BP 116/71
[2018-08-25] MEDS: ATORVASTATIN 40 MG TABLET GT SCH (21:36)
--- NOTE | 2018-08-26 06:00 | NUR ---
PATIENT ASLEEP, EASILY AROUSABLE. RESPIRATIONS EVEN. NO SIGNS OF PAIN NOTED. DUE MEDS GIVEN WITH NO ASE NOTED. NEEDS ATTENDED. KEPT CLEAN, DRY, AND COMFORTABLE. SAFETY PRECAUTIONS AND COMFORT MEASURES IN PLACE. WILL GIVE REPORT TO DAY SHIFT FOR CONTINUITY OF CARE.
[2018-08-26] MEDS: JEVITY 1.2 CAL 1,000 ML BOTTLE GT PRN ×2 (06:45→21:30)
[2018-08-26 07:42] LABS: BASOPHILS % (AUTO) 0.3 % (0.0-2.0); HEMATOCRIT 41 % (39-51); HEMOGLOBIN 13.2 g/dL (13.5-17.5); LYMPHOCYTES % (AUTO) 18.1 % (20.0-44.0); MEAN CORPUSCULAR HGB CONC 32 g/dl (31.0-36.0); MEAN CORPUSCULAR VOLUME 95 fL (80-96); MONOCYTES # (AUTO) 0.5 /CMM (0.1-1.30); MONOCYTES % (AUTO) 7.9 % (2.0-12.0); NEUTROPHILS # (AUTO) 4.1 /CMM (1.8-8.9); NEUTROPHILS % (AUTO) 70.7 % (43.0-81.0); PLATELET COUNT (AUTO) 217 /CMM (150-450); RDW COEFFICIENT OF VARIATION 13.1 (11.5-15.0); WHITE BLOOD COUNT (AUTO) 5.8 K/uL (4.3-11.0)
[2018-08-26 07:54] LABS: VALPROIC ACID 41 ug/mL (50-100)
[2018-08-26 07:56] LABS: ALANINE AMINOTRANSFERASE 36 U/L (12-78); ALBUMIN 2.7 g/dL (3.4-5.0); ALKALINE PHOSPHATASE 72 U/L (46-116); ASPARTATE AMINOTRANSFERASE 29 U/L (15-37); BILIRUBIN,TOTAL 0.4 mg/dL (0.2-1.0); CALCIUM, SERUM 8.9 mg/dL (8.5-10.1); CARBON DIOXIDE 29 mmol/L (21-32); CHLORIDE 108 mmol/L (98-107); CREATININE 0.9 mg/dL (0.6-1.3); GLUCOSE 123 mg/dL (74-106); POTASSIUM 4.3 mmol/L (3.5-5.1); SODIUM SERUM 143 mmol/L (136-145); TOTAL PROTEIN, SERUM 6.3 g/dL (6.4-8.2); UREA NITROGEN, BLOOD 24 mg/dL (7-18)
--- NOTE | 2018-08-26 08:47 | NUR ---
SW received a phone call from CJ background check coordinator at [facility] Address: [address] [place] [address] stating pt was not accepted to their facility due to his G-Tube.
[2018-08-26] MEDS ORDERED: OLANZAPINE 5 MG/TAB.RAPDIS PO SCH (09:00)
[2018-08-26] MEDS: BRIMONIDINE TARTRATE OPHT SOLN 5 ML BOTTLE LEFTEYE SCH ×3 (09:00→17:18)
[2018-08-26] MEDS ORDERED: OLANZAPINE 2.5 MG TABLET GT SCH (09:00)
[2018-08-26] MEDS: TIMOLOL 0.25% SOL OPHTH 10 ML BOTTLE LEFTEYE SCH ×2 (09:00→21:14)
--- NOTE | 2018-08-26 09:37 | NUR ---
SW receive phone call from admissions at [facility] Address: [address], [place] [address] stating pt was not accepted to their facility due to pt being on a G-Tube.
[2018-08-26] MEDS: ASPIRIN 81 MG TAB.CHEW GT SCH (10:24)
[2018-08-26] MEDS: METOPROLOL TARTRATE 25 MG TABLET GT SCH ×2 (10:25→17:02)
[2018-08-26] MEDS: VALPROIC ACID 250 MG/5 ML UDC GT SCH ×3 (10:27→17:02)
[2018-08-26] MEDS: risperiDONE LIQUID 1 MG/ML ML GT SCH ×2 (13:00→17:00)
[2018-08-26] MEDS: OLANZAPINE 2.5 MG TABLET GT SCH ×2 (13:38→17:01)
--- NOTE | 2018-08-26 13:46 | NUR ---
PATIENT AWAKE AO X 1, RESPONSIVE TO VOICE AND TOUCH. CALM AT THIS TIME. NO ACUTE DISTRESS NOTED. NO SIGNS PAIN NOTED. SAFETY REMINDERS GIVEN. ON LOW BED WITH BILATERAL UPPER SIDE RAILS UP. CALL CAMPBELL WITHIN EASY REACH. WILL CONTINUE TO TREAT AND MONITOR. SITTER AT BEDSIDE.
[2018-08-26] MEDS: LORAZEPAM 0.5 MG TABLET GT PRN (19:48)
[2018-08-26 20:00] VITALS: BP 131/70
--- NOTE | 2018-08-26 20:27 | NUR ---
RN OPENING NOTES RECEIVED PT IN BED, A/X1 AWAKE AND RESTLESS, BREATHING EVEN AND UNLABORED ON RA, NO SIGNS OF DISTRESS. GTUBE IN PLACE AND FLUSHING. BED IN LOWEST LOCKED POSITION, CALL LIGHT WITHIN REACH AT ALL TIMES, SITTER AT BEDSIDE, ADMINISTERED ATIVAN .5MG VIA GTUBE UPON ARRIVAL DUE TO PATIENT'S INCREASING RESTLESSNESS AND AGGRESSIVE BEHAVIOR, NON PHARMACOLOGICAL INTERVENTIONS INEFFECTIVE, WILL CONTINUE TO MONITOR.
[2018-08-26] MEDS: TEMAZEPAM 7.5 MG CAPSULE GT PRN (20:40)
--- NOTE | 2018-08-26 20:40 | NUR ---
PATIENT VERY RESTLESS AND AGITATED POST ADMINISTRATION OF ATIVAN 0.5 MG PO. NONPHARMACOLOGICAL INTERVENTIONS INEFFECTIVE. RESTORIL GIVEN. WILL CONTINUE TO MONITOR. SITTER AT BEDSIDE.
[2018-08-26] MEDS ORDERED: HALOPERIDOL LACTATE INJ 5 MG/ML VIAL IM ONE (21:00)
--- NOTE | 2018-08-26 21:00 | NUR ---
DR. ZHU RETURNED CALL AND WAS MADE AWARE THAT PATIENT HAS BEEN VERY AGITATED; HITTING, KICKING, BITING STAFF; TRYING TO GET OUT OF BED. DR. ZHU WAS INFORMED THAT PATIENT WAS RECENTLY GIVEN ATIVAN AND RESTORIL GT WITH NO EFFECT. DR. ZHU ORDERED HALDOL 3 MG IM X 1; NOTED AND CARRIED OUT.
[2018-08-26] MEDS: ATORVASTATIN 40 MG TABLET GT SCH (21:13)
[2018-08-26 22:40] LABS: BASOPHILS % (AUTO) 0.2 % (0.0-2.0); EOSINOPHILS % (AUTO) 1.6 % (0.0-6.0); HEMATOCRIT 40 % (39-51); LYMPHOCYTES # (AUTO) 1.4 /CMM (0.8-4.8); LYMPHOCYTES % (AUTO) 15.8 % (20.0-44.0); MEAN CORPUSCULAR HGB CONC 32 g/dl (31.0-36.0); MEAN CORPUSCULAR VOLUME 95 fL (80-96); MONOCYTES # (AUTO) 0.7 /CMM (0.1-1.30); MONOCYTES % (AUTO) 7.9 % (2.0-12.0); NEUTROPHILS # (AUTO) 6.5 /CMM (1.8-8.9); NEUTROPHILS % (AUTO) 74.5 % (43.0-81.0); PLATELET COUNT (AUTO) 226 /CMM (150-450); RED BLOOD CELL COUNT(AUTO) 4.27 MIL/uL (4.5-6.0); WHITE BLOOD COUNT (AUTO) 8.8 K/uL (4.3-11.0)
[2018-08-26 22:42] LABS: CALCIUM, SERUM 9.1 mg/dL (8.5-10.1); CARBON DIOXIDE 29 mmol/L (21-32); CHLORIDE 108 mmol/L (98-107); CREATININE 0.8 mg/dL (0.6-1.3); GLUCOSE 105 mg/dL (74-106); POTASSIUM 3.9 mmol/L (3.5-5.1); SODIUM SERUM 143 mmol/L (136-145); UREA NITROGEN, BLOOD 27 mg/dL (7-18)
[2018-08-26 22:47] LABS: ALANINE AMINOTRANSFERASE 40 U/L (12-78); ALKALINE PHOSPHATASE 78 U/L (46-116); ASPARTATE AMINOTRANSFERASE 29 U/L (15-37); BILIRUBIN,TOTAL 0.3 mg/dL (0.2-1.0); MAGNESIUM 2.1 mg/dL (1.8-2.4); TOTAL PROTEIN, SERUM 6.7 g/dL (6.4-8.2)
[2018-08-27] MEDS: JEVITY 1.2 CAL 1,000 ML BOTTLE GT PRN ×2 (05:35→22:50)
[2018-08-27 05:40] VITALS: BP 131/70
--- NOTE | 2018-08-27 07:00 | NUR ---
MS RN OPENING NOTES RECEIVED PT IN BED, SLEEPING, BREATHING EVEN AND UNLABORED ON RA, NO S/S OF DISTRESS. G-TUBE IN PLACE AND FLUSHING WELL, RESIDUAL 10 ML. BED IN LOWEST LOCKED POSITION, CALL LIGHT WITHIN REACH, SITTER AT BEDSIDE, WILL CONTINUE TO MONITOR.
--- NOTE | 2018-08-27 07:19 | NUR ---
RN GPS CLOSING NOTES PT REMAINS IN BED, AWAKE, ALERT AND ORIENTEDX 1, BREATHING EVEN AND UNLABORED ON RA. BOLOS FEEDING GIVEN AT 0500 AND TOLERATED. NO COMPLAINT OF PAIN OR DISCOMFORT, NO AGITATION, NO AGGRESSIVE BEHAVIOR AT THE MOMENT. KEPT PATIENT CLEAN AND DRY DURING SHIFT, BED IN LOWEST LOCKED POSITION, CALL LIGHT WITHIN REACH AT ALL TIMES. NO SIGNIFICANT CHANGE DURING SHIFT, WILL ENDORSE TO DAY NURSE FOR KELLY
[2018-08-27 08:00] VITALS: BP 105/59
[2018-08-27] MEDS: OLANZAPINE 2.5 MG TABLET GT SCH ×3 (09:00→16:20)
[2018-08-27] MEDS: METOPROLOL TARTRATE 25 MG TABLET GT SCH ×2 (09:00→16:28)
[2018-08-27] MEDS: BRIMONIDINE TARTRATE OPHT SOLN 5 ML BOTTLE LEFTEYE SCH ×3 (09:00→16:21)
[2018-08-27] MEDS: TIMOLOL 0.25% SOL OPHTH 10 ML BOTTLE LEFTEYE SCH ×2 (09:00→20:28)
[2018-08-27] MEDS: VALPROIC ACID 250 MG/5 ML UDC GT SCH ×3 (09:00→16:20)
[2018-08-27] MEDS: risperiDONE LIQUID 1 MG/ML ML GT SCH ×3 (09:00→16:20)
--- NOTE | 2018-08-27 10:12 | NUR ---
held [address] Heaton . pt still sleepy after night medications. per dr. Heaton will give meds close to 1200.
[2018-08-27] MEDS: ASPIRIN 81 MG TAB.CHEW GT SCH (10:15)
--- NOTE | 2018-08-27 13:00 | NUR ---
SPOKE WITH DR YANG , REPORTED THAT PT FULLY AWAKE FROM HALDOL IM THAT WAS GIVEN AT NIGHT, 1200 MEDICATIONS WAS GIVEN AND NOW PT RESTLESS BUT NOT AGGRESSIVE.DR ZHU SUGGESTED TO GIVE SCHEDULED MEDS IF PT CONDITION DID NOT CHANGE .
--- NOTE | 2018-08-27 13:37 | NUR ---
AVA spoke with Carmen, clinical administrative coordinator at [facility] Address: [address] , [place] [address] regarding pts readmission to their facility. Carmen stated that she spoke with who stated that pt was going to be placed in a locked SNF and therefore, could not return to their facility. AVA informed Carmen that pt was not going to a locked SNF due to the g-tube that was placed at [facility], Carmen became hostile and verbally aggressive with AVA and stated that the G-tube was not placed at their facility, AVA informed Carmen that MD had confirmed with AVA that G-tube was in fact placed by their facility. Carmen stated that AVA was not going to tell her how to do her job and that she has been in admissions for 30 years and knows for a fact pt was not put on a G-Tube at [facility] and that pt would not be accepted back, AVA questioned if pt had been formally discharged, was on a bed hold, and or was given a 30 day notice. Carmen became defensive and stated that they had not formally discharged pt and was on a bed hold. Carmen informed AVA that she was going to speak to Dr. Head and hung up on SW.
[2018-08-27] MEDS: LORAZEPAM 0.5 MG TABLET GT PRN (17:18)
--- NOTE | 2018-08-27 17:22 | NUR ---
PRN ATIVAN WAS GIVEN DUE TO INCREASED AGITATION
--- NOTE | 2018-08-27 18:34 | NUR ---
MS RN CLOSING NOTES PT IN BED, AWAKE A/O X1,RELAXED AT THIS TIME. BREATHING EVEN AND UNLABORED ON RA, NO S/S OF DISTRESS. G-TUBE IN PLACE AND FLUSHING WELL WITH NO RESIDUAL. SITTER AT BEDSIDE. ALL NEEDS ATTENDED, MEDS ARE GIVEN. PT TOTAL ASSISTANCE WITH FEEDING. BED IN LOWEST LOCKED POSITION, CALL LIGHT WITHIN REACH. WILL ENDORSE TO NEXT SHIFT FOR KELLY.
--- NOTE | 2018-08-27 19:26 | NUR ---
MS RN OPENING NOTES: RECEIVED PT ON ROOM AIR AND IS TOLERATING WELL. PT HAS SITTER AT BEDSIDE. NO IV NOTED PER GPS PROTOCOL. PT IS A/OX1 TO NAME ONLY. CALL LIGHT WITHIN PT'S REACH. BED KEPT IN LOW, LOCKED POSITION, AND SIDE RAILS X 2UP. WILL CONTINUE TO MONITOR PT.
[2018-08-27 20:00] VITALS: BP 117/55
[2018-08-27] MEDS: ATORVASTATIN 40 MG TABLET GT SCH (21:03)
[2018-08-27] MEDS: TEMAZEPAM 7.5 MG CAPSULE GT PRN (22:13)
--- NOTE | 2018-08-27 22:13 | NUR ---
RN NOTES: PT VERY AGGRESSIVE, AGITATED, AND APPEARS TO BE RESTLESS. PT GIVEN RESTORIL PER NURSING ASSESSMENT. WILL CONTINUE TO MONITOR PT.
[2018-08-28 02:30] VITALS: BP 130/80
[2018-08-28] MEDS: LORAZEPAM 0.5 MG TABLET GT PRN ×3 (02:31→23:46)
--- NOTE | 2018-08-28 02:31 | NUR ---
RN NOTE: PT VERY ANXIOUS AND KEEPS TRYING TO GET OUT OF BED. PT WAS ADMINISTERED ATIVAN 0.5MG. WILL CONTINUE TO MONITOR PT.
[2018-08-28] MEDS: JEVITY 1.2 CAL 1,000 ML BOTTLE GT PRN (05:19)
--- NOTE | 2018-08-28 06:22 | NUR ---
RN CLOSING NOTES: ALL NEEDS WERE ATTENDED AND ANTICIPATED FOR. SITTER AT BEDSIDE. PT ASLEEP AT THIS TIME AND RESTING COMFORTABLY. PT HAS G TUBE AND IS CLAMPED. NO RESIDUAL NOTED. HAS BEEN FLUSHED WITH WATER. AB BINDER IN PLACE TO KEEP G TUBE FROM DISLODGING. NO IV PER PROTOCOL. CALL LIGHT WITHIN PT'S REACH. BED KEPT IN LOW, LOCKED POSITION, AND SIDE RAILS X 2UP. WILL ENDORSE TO AM NURSE FOR KELLY.
--- NOTE | 2018-08-28 07:20 | NUR ---
MS RN NOTES PATIENT IN LYING IN BED , HOB ELEVATED, EYES CLOSED EASILY AWAKEN, RESPOND TO VERBAL AND TACTILE STIMULI. NO ACUTE DISTRESS NOTED, BREATHING UNLABORED. NO FACIAL GRIMACING NOTED. SAFETY MEASURES IN PLACE. SITTER AT BEDSIDE. WILL CONTINUE TO MONITOR ACCORDINGLY.
[2018-08-28] MEDS: ASPIRIN 81 MG TAB.CHEW GT SCH (09:09)
[2018-08-28] MEDS: OLANZAPINE 2.5 MG TABLET GT SCH ×3 (09:10→17:40)
[2018-08-28] MEDS: VALPROIC ACID 250 MG/5 ML UDC GT SCH ×3 (09:10→17:40)
[2018-08-28] MEDS: METOPROLOL TARTRATE 25 MG TABLET GT SCH ×2 (09:10→17:41)
[2018-08-28] MEDS: BRIMONIDINE TARTRATE OPHT SOLN 5 ML BOTTLE LEFTEYE SCH ×3 (09:12→17:41)
[2018-08-28] MEDS: risperiDONE LIQUID 1 MG/ML ML GT SCH ×3 (09:25→17:41)
[2018-08-28] MEDS: TIMOLOL 0.25% SOL OPHTH 10 ML BOTTLE LEFTEYE SCH ×2 (09:26→20:44)
--- NOTE | 2018-08-28 18:48 | NUR ---
MS RN NOTES PATIENT IN LYING IN BED , HOB ELEVATED, AWAKE. NO ACUTE DISTRESS NOTED, BREATHING UNLABORED. DENIED ANY PAIN. SAFETY MEASURES IN PLACE. SITTER AT BEDSIDE. DUE MEDICATIONS GIVEN, NO ASE NOTED. NEEDS ATTENDED AND ANTICIPATED. WILL CONTINUE TO MONITOR ACCORDINGLY. WILL ENDORSE TO NIGHT NURSE FOR CONTINUITY OF CARE.
--- NOTE | 2018-08-28 19:35 | NUR ---
MS/RN NOTES RECEIVED PT. LYING IN BED. PT. IS AWAKE, ALERT AND ORIENTED TO SELF. BREATHING EVEN AND UNLABORED ON ROOM AIR. NO SOB, RESPIRATORY DISTRESS OR COMPLAINTS OF PAIN NOTED AT THIS TIME. PT. WITH G-TUBE PRESENT, PATENT AND INTACT. NO RESIDUAL NOTED AT THIS TIME. PT. WITH 1:1 SITTER PRESENT AT BEDSIDE. BED LOCKED AND IN LOWEST POSITION, SIDE RAILS UP X3, BED ALARM ON, WILL CONTINUE TO MONITOR.
[2018-08-28 20:00] VITALS: BP 142/77
[2018-08-28] MEDS: ATORVASTATIN 40 MG TABLET GT SCH (21:19)
--- NOTE | 2018-08-28 21:58 | NUR ---
MS/RN NOTES CALLED AND NOTIFIED EPIC AGRICULTURAL ECONOMICS PROFESSOR TILE SPRAYER YARELY PT. STATED HE WASN'T FEELING WELL AND VOMITED A MODERATE AMOUNT OF BROWN EMESIS. PT. CURRENT BP: 155/90 HR 68. PT. WITH NO IV ACCESS, NO PRN NAUSEA MEDICATION ORDERED AT THIS TIME. PT. WITH 15 ML G-TUBE RESIDUAL NOTED. PER STACY JAIN NEW ORDERS: STAT CBC, ZOFRAN 4MG GT EVERY 8 HOURS PRN NAUSEA/VOMITING. HOLD 2200 TUBE FEEDING AT THIS TIME AND RESUME IN 4 HOURS IF NO NAUSEA OR VOMITING. WILL CARRY OUT ORDERS. WILL CONTINUE TO MONITOR.
[2018-08-28 22:26] LABS: BASOPHILS % (AUTO) 0.1 % (0.0-2.0); EOSINOPHILS % (AUTO) 0.8 % (0.0-6.0); HEMATOCRIT 47 % (39-51); HEMOGLOBIN 14.7 g/dL (13.5-17.5); LYMPHOCYTES # (AUTO) 1.3 /CMM (0.8-4.8); LYMPHOCYTES % (AUTO) 9.9 % (20.0-44.0); MEAN CORPUSCULAR HGB CONC 31 g/dl (31.0-36.0); MEAN CORPUSCULAR VOLUME 94 fL (80-96); MONOCYTES # (AUTO) 0.1 /CMM (0.1-1.30); MONOCYTES % (AUTO) 1.1 % (2.0-12.0); NEUTROPHILS # (AUTO) 11.9 /CMM (1.8-8.9); NEUTROPHILS % (AUTO) 88.1 % (43.0-81.0); PLATELET COUNT (AUTO) 251 /CMM (150-450); RED BLOOD CELL COUNT(AUTO) 4.95 MIL/uL (4.5-6.0); WHITE BLOOD COUNT (AUTO) 13.5 K/uL (4.3-11.0)
[2018-08-28] MEDS ORDERED: ONDANSETRON HCL/PF 4 MG/2 ML VIAL ONE (22:31)
[2018-08-28] MEDS ORDERED: ONDANSETRON HCL 4 MG/5 ML SOLUTION ONE (22:33)
[2018-08-28] MEDS: ONDANSETRON HCL 4 MG/5 ML SOLUTION GT PRN (22:37)
--- NOTE | 2018-08-28 23:03 | NUR ---
MS/RN NOTES CALLED AND NOTIFIED EPIC ALGEBRA TUTOR STACY PRITCHETT PT. VOMITED LARGE AMOUNT OF BROWN EMESIS BEFORE PRN ZOFRAN WAS ADMINISTERED. STAT CBC RESULTED PT. H/H 14.7/47 PT. WBC INCREASED FROM 8.8 TO 13.5. PER STACY PRITCHETT NEW ORDERS: COLLECT EMESIS FOR OCCULT AND REGLAN 10MG IV PUSH EVERY 6 HOURS PRN NAUSEA/VOMITING. WILL CARRY OUT ORDERS. WILL CONTINUE TO MONITOR.
[2018-08-28] MEDS ORDERED: METOCLOPRAMIDE HCL 10 MG/2 ML VIAL IV PRN (23:30)
[2018-08-29] MEDS ORDERED: METOCLOPRAMIDE HCL 10 MG/10 ML UDC PO PRN (00:30)
--- NOTE | 2018-08-29 05:00 | NUR ---
MS/RN NOTES HELD PT. SCHEDULED 0500 TUBE FEEDING. PT. STATED HE FEELS NAUSEOUS. NO EMESIS NOTED AT THIS TIME. WILL CONTINUE TO MONITOR.
--- NOTE | 2018-08-29 07:03 | NUR ---
MS/RN NOTES PT. IS LYING IN BED RESTING. BREATHING EVEN AND UNLABORED ON ROOM AIR. NO SOB, RESPIRATORY DISTRESS OR COMPLAINTS OF PAIN NOTED AT THIS TIME AND THROUGHOUT SHIFT. NO COMPLAINTS OF N/V NOTED AT THIS TIME. PT. WITH G-TUBE PRESENT, PATENT AND INTACT. NO RESIDUAL NOTED AT THIS TIME. PT. WITH 1:1 SITTER PRESENT AT BEDSIDE. ALL PT. NEEDS MET. PT. OFFLOADED, PT. ASSISTED TO TURN AND REPOSITIONED Q2H AND NEEDED. BED LOCKED AND IN LOWEST POSITION, SIDE RAILS UP X3, BED ALARM ON, WILL ENDORSE TO DAYSHIFT NURSE FOR CONTINUITY OF CARE.
--- NOTE | 2018-08-29 07:51 | NUR ---
GPS OV RN NOTES PATIENT RECEIVED RESTING INSIDE ROOM. SLEEPING, EASILY AROUSABLE THROUGH VERBAL AND TACTILE STIMULI. BREATHING EVEN AND UNLABORED. NO SOB OR ACUTE DISTRESS. DENIES ANY PAIN OR DISCOMFORT. GT IN PLACE. MAINTAINED ASPIRATION PRECAUTIONS. SITTER AT BEDSIDE. SAFETY PRECAUTIONS IN PLACE. WILL CONTINUE TO MONITOR. BED LOCKED AND IN LOW POSITION. BILATERAL UPPER SIDE RAILS UP AND LOCKED. CALL LIGHT WITHIN EASY REACH
[2018-08-29] MEDS: TIMOLOL 0.25% SOL OPHTH 10 ML BOTTLE LEFTEYE SCH ×2 (08:48→22:05)
[2018-08-29] MEDS: BRIMONIDINE TARTRATE OPHT SOLN 5 ML BOTTLE LEFTEYE SCH ×3 (08:48→17:12)
[2018-08-29] MEDS: VALPROIC ACID 250 MG/5 ML UDC GT SCH ×3 (08:52→17:13)
[2018-08-29] MEDS: OLANZAPINE 2.5 MG TABLET GT SCH ×3 (08:52→17:13)
[2018-08-29] MEDS: ASPIRIN 81 MG TAB.CHEW GT SCH (08:53)
[2018-08-29] MEDS: METOPROLOL TARTRATE 25 MG TABLET GT SCH ×2 (08:53→17:13)
[2018-08-29] MEDS: risperiDONE LIQUID 1 MG/ML ML GT SCH ×3 (08:53→17:12)
[2018-08-29] MEDS: ONDANSETRON HCL 4 MG/5 ML SOLUTION GT PRN (12:26)
[2018-08-29] MEDS: JEVITY 1.2 CAL 1,000 ML BOTTLE GT PRN ×2 (15:30→17:27)
--- NOTE | 2018-08-29 17:46 | NUR ---
GPS OV RN NOTES PATIENT NOTED WITH EPISODE OF VOMITING X 1 EPISODE, BLACKISH-COLORED VOMITUS APPROXIMATELY 20-30 CC IN VOLUME. NO FURTHER VOMITING EPISODE NOTED. PATIENT DENIES NAUSEA. NO CHANGES IN LOC NOTED. DR. MIKE MADE AWARE. WITH NEW ORDER TO HOLD ORAL GRATIFICATION AND BOLUS FEEDINGS AT THIS TIME, SAID TO ADMINISTER MEDICATIONS VIA GT. DR. MIKE SAID THAT SHE WILL PLACE DIAGNOSTIC ORDERS FOR PATIENT. ORDER NOTED AND CARRIED OUT. BOLUS FEEDING HELD, MAINTAINED ASPIRATION PRECAUTION. WILL CONTINUE TO MONITOR.
--- NOTE | 2018-08-29 18:50 | NUR ---
GPS OV RN NOTES PATIENT RESTING INSIDE ROOM. AWAKE, ALERT AND ORIENTED TO SELF. PATIENT WITH DISORGANIZED THOUGHTS. CALM AND RELAXED. NO CHANGES IN LOC NOTED. DENIES ANY PAIN OR DISCOMFORT. MAINTAINED ASPIRATION PRECAUTIONS. SITTER AT BEDSIDE. SAFETY PRECAUTIONS IN PLACE. WILL ENDORSE TO INCOMING SHIFT FOR KELLY. BED LOCKED AND IN LOW POSITION. BILATERAL UPPER SIDE RAILS UP AND LOCKED.
--- NOTE | 2018-08-29 19:30 | NUR ---
RN MS OPENING NOTES RECEIVED PATIENT IN BED ASLEEP. EASILY AROUSABLE. ALERT AND ORIENTED X0. CONFUSED. BREATHING EVEN AND UNLABORED. NO SOB NOTED. TOLERATING ROOM AIR. NO S/S OF PAIN OR DISCOMFORT. NO FACIAL GRIMACING. NO IV ACCESS. SKIN DRY AND WARM TO TOUCH. AFEBRILE. SITTER AT BEDSIDE. ALL OTHER NEEDS ATTENDED TO. SAFETY MEASURES IN PLACE. CALL LIGHT WITHIN REACH. WILL CONTINUE TO MONITOR.
--- NOTE | 2018-08-29 20:43 | NUR ---
RN NOTES RECEIVED PT FORM HAYDER, IN BED AWAKE, ALERT BUT DISORIENTED IN STABLE CONDITION, WITH SITTER AT BEDSIDE, WILL CONTINUE TO MONITOR
[2018-08-29] MEDS: ATORVASTATIN 40 MG TABLET GT SCH (22:04)
--- NOTE | 2018-08-30 06:01 | NUR ---
RN MS CLOSING NOTES PATIENT REMAINS IN BED, ASLEEP, AROUSED TO TOUCH, BREATHING EVEN AND UNLABORED. NO EPISODE OF VOMITING DURING SHIFT, CONTINUE TO HOLD GTUBE FEEDINGS PER MD ORDER. NO EPISODE OF AGITATION OR AGGRESSIVE BEHAVIOR DURING SHIFT, SITTER AT BEDSIDE. BED IN LOWEST LOCKED POSITION, CALL LIGHT WITHIN REACH, NO SIGNIFICANT CHANGE DURING SHIFT, WILL ENDORSE TO DAY NURSE FOR KELLY
[2018-08-30 08:00] VITALS: BP 137/83
--- NOTE | 2018-08-30 08:00 | NUR ---
gps ov rubber factory worker: initial notes received pt in bed with eyes close, appears sleeping, but arousable. sitter at bedside. pt remains on 5250 hold for psychosis. reality orientation provided prn. call light within reach. will continue to monitor.
[2018-08-30] MEDS: ASPIRIN 81 MG TAB.CHEW GT SCH (08:39)
[2018-08-30] MEDS: VALPROIC ACID 250 MG/5 ML UDC GT SCH ×2 (08:39→13:28)
[2018-08-30] MEDS: risperiDONE LIQUID 1 MG/ML ML GT SCH ×2 (08:39→13:28)
[2018-08-30] MEDS: OLANZAPINE 2.5 MG TABLET GT SCH ×2 (08:39→13:28)
[2018-08-30 08:40] VITALS: BP 137/83
[2018-08-30] MEDS: METOPROLOL TARTRATE 25 MG TABLET GT SCH (08:40)
[2018-08-30] MEDS: TIMOLOL 0.25% SOL OPHTH 10 ML BOTTLE LEFTEYE SCH (08:48)
[2018-08-30] MEDS: BRIMONIDINE TARTRATE OPHT SOLN 5 ML BOTTLE LEFTEYE SCH ×2 (08:57→13:39)
--- NOTE | 2018-08-30 11:00 | NUR ---
gps handhole machine operator: notes pt remains npo except meds. no n/v noted at this time, but noted with 5ml of black gastric contents residual via g-tube. no veterinarian on case at this time. dr. harrell notified and made aware with no new order at this time. md making rounds as stated. will continue to monitor.
--- NOTE | 2018-08-30 12:15 | NUR ---
gps raisin separator operator: md visit seen by dr. harrell and will consult dr. pierre (gi) as stated. orders acknowledged.
[2018-08-30] MEDS ORDERED: Potassium Chloride 20 MEQ in IV D5/0.45 NACL 1,000 ML IV PRN (12:30)
[2018-08-30 12:45] LABS: BASOPHILS % (AUTO) 0.3 % (0.0-2.0); EOSINOPHILS % (AUTO) 0.1 % (0.0-6.0); HEMATOCRIT 47 % (39-51); HEMOGLOBIN 15.4 g/dL (13.5-17.5); LYMPHOCYTES # (AUTO) 0.7 /CMM (0.8-4.8); LYMPHOCYTES % (AUTO) 3.6 % (20.0-44.0); MEAN CORPUSCULAR HGB CONC 33 g/dl (31.0-36.0); MEAN CORPUSCULAR VOLUME 94 fL (80-96); MONOCYTES # (AUTO) 1.3 /CMM (0.1-1.30); MONOCYTES % (AUTO) 6.7 % (2.0-12.0); NEUTROPHILS # (AUTO) 17.6 /CMM (1.8-8.9); NEUTROPHILS % (AUTO) 89.3 % (43.0-81.0); PLATELET COUNT (AUTO) 253 /CMM (150-450); RED BLOOD CELL COUNT(AUTO) 4.98 MIL/uL (4.5-6.0); WHITE BLOOD COUNT (AUTO) 19.6 K/uL (4.3-11.0)
[2018-08-30 12:54] LABS: CALCIUM, SERUM 9.8 mg/dL (8.5-10.1); CARBON DIOXIDE 33 mmol/L (21-32); CHLORIDE 106 mmol/L (98-107); CREATININE 1.2 mg/dL (0.6-1.3); GLUCOSE 118 mg/dL (74-106); POTASSIUM 4.7 mmol/L (3.5-5.1); SODIUM SERUM 146 mmol/L (136-145); UREA NITROGEN, BLOOD 44 mg/dL (7-18)
--- NOTE | 2018-08-30 13:00 | NUR ---
gps sleep lab technologist: notes f/u made to dr. pierre (gi) re: consult, spoke to him over the phone. consent obtained from son (nyasia) re: ct abdomen pelvis with or without contrast, spoke to him over the phone with another nurse as a witnessed.
[2018-08-30 13:12] LABS: ALANINE AMINOTRANSFERASE 27 U/L (12-78); ALBUMIN 3.4 g/dL (3.4-5.0); ALKALINE PHOSPHATASE 89 U/L (46-116); ASPARTATE AMINOTRANSFERASE 20 U/L (15-37); BILIRUBIN,DIRECT 0.1 mg/dL (0.0-0.2); BILIRUBIN,TOTAL 0.5 mg/dL (0.2-1.0); MAGNESIUM 2.4 mg/dL (1.8-2.4)
[2018-08-30] MEDS ORDERED: DIATR MEGLU/DIATRIZOATE SODIUM 30 ML BOTTLE (GASTROGRAPHIN) ONE (14:22)
[2018-08-30] MEDS ORDERED: POLYETHYLENE GLYCOL 3350 17 GM POWD.PACK PO SCH (14:30)
--- NOTE | 2018-08-30 14:30 | NUR ---
gps ov senior technical specialist: gi consult seen and examined by dr. cotter with order. order acknowledged.
--- NOTE | 2018-08-30 15:20 | NUR ---
m/s consumer affairs specialist: notes dr. pierre plan to do egd in am and wants me to get consents, but no order at this time. nyasia bahena (son) notified and made aware and spoke to him over the phone with another nurse as a witness and informed him of plan of care for possible egd in am and consented with the procedure, anesthesia, and blood products. son verbalized understanding.
--- NOTE | 2018-08-30 16:00 | NUR ---
gps ops analyst: notes dr. harrell called and wants me to do straight cath for ua culture. straight cath done, amanda. well and collected urine. called lab to metal pickling equipment operator the specimen. sitter remains at bedside.
--- NOTE | 2018-08-30 16:18 | NUR ---
gps ov: psych f/u seen by dr. weinstein with order discontinue hold. order acknowledged. cn made aware.
--- NOTE | 2018-08-30 16:22 | NUR ---
gps poison information specialist: notes dr. weinstein still here and clarify if pt needs to be admitted to medical floor instead of gps ov, stated, "no, just discontinue the hold and keep him under geropsych." cn aware.
--- NOTE | 2018-08-30 16:26 | NUR ---
gps adult nurse practitioner: notes f/u made to lab re: stat orders, spoke to samantha and will come here to do it.
--- NOTE | 2018-08-30 17:00 | NUR ---
damian stone crusher operator: discharged pt discharged to medical floor with dx: ams under dr. harrell. pt unable to sign all d'c papers due to cognitive impairment. son notified and made aware and informed him that pt needs to be admitted to floor due to change of condition. spoke to dr. weinstein and received verbal order to continue all psych medications. Addendum: 08/30/18 at 1734 by JOSE MCGEE LVN also received verbal order to d'c pt to medical floor and continue psych medications and dr. harrell to admit pt to floor.
--- NOTE | 2018-08-30 17:10 | NUR ---
gps market research executive: notes f/u made to [facility], spoke to vasquez re: immunizations and informed me that pt received influenza vaccine on january 14, 2018 and pneumococcal vaccine on february 26, 2018. chart updated.
[2018-08-30] MEDS ORDERED: OLAN5TAB3 GT (18:18)
[2018-08-30] MEDS ORDERED: POLY17PO4 GT (18:18)
[2018-08-30] MEDS ORDERED: VALP250S3 GT (18:18)
[2018-08-30] MEDS ORDERED: METO5SOL20 GT (18:18)
[2018-08-30] MEDS ORDERED: TEMA7.5C GT (18:18)
--- NOTE | 2018-08-31 08:33 | NUR ---
DISCHARGE NOTE: Pt was discharged to Med/Surg unit. Pts discharge will be done by unit case operator.
== END 2018-08-30 16:45 | disposition short-term general hospital (02) | DRG 885 ==
LOC: ER 20:46 → GPSOV 08-21 00:10
PROVIDERS: ADMIT Psychiatry & Neurology Psychosomatic Medicine; ATTEND Psychiatry & Neurology Psychosomatic Medicine
DX: F25.0 Schizoaffective disorder, bipolar type (principal); F01.50 Vascular dementia, unspecified severity, without behavioral disturbance, psychotic disturbance, mood disturbance, and anxiety; Z93.1 Gastrostomy status; G93.41 Metabolic encephalopathy; R53.2 Functional quadriplegia; F03.91 Unspecified dementia, unspecified severity, with behavioral disturbance; D68.59 Other primary thrombophilia; E44.1 Mild protein-calorie malnutrition; E44.0 Moderate protein-calorie malnutrition; F29 Unspecified psychosis not due to a substance or known physiological condition; E78.5 Hyperlipidemia, unspecified; H54.7 Unspecified visual loss; I10 Essential (primary) hypertension; F41.9 Anxiety disorder, unspecified; H40.9 Unspecified glaucoma; Z79.82 Long term (current) use of aspirin; Z79.899 Other long term (current) drug therapy; L89.320 Pressure ulcer of left buttock, unstageable; R13.10 Dysphagia, unspecified; D63.8 Anemia in other chronic diseases classified elsewhere; S51.812A Laceration without foreign body of left forearm, initial encounter; X58.XXXA Exposure to other specified factors, initial encounter; Y92.9 Unspecified place or not applicable; S00.212A Abrasion of left eyelid and periocular area, initial encounter; E86.0 Dehydration; Z73.6 Limitation of activities due to disability; K59.00 Constipation, unspecified
CPT/HCPCS: 36415; 74178; 80048-TC; 80053-TC; 80061-TC; 80076-TC; 80164-TC; 80305; 81000-TC; 83605-TC; 83735-TC; 84100-TC; 84443-TC; 85025-TC; 87040-TC; 87081-TC; 87086-TC; 92611-TC; A4606; A6402; G0480; J1630; J2060; J2405; J2765; J3480; J3490; J8597; Q0162; Q9963; Z7610